=== PATIENT | male | born 1955 | race Asian ===

== ENCOUNTER 2016-03-18 13:52 | Emergency (ER) | payer MEDICARE, OTHER ==
[~2016-03-18] VITALS: Ht 175.3 cm; Wt 79.5 kg
[~2016-03-18 13:52] MED LIST: ADV250 IH; ARIP15TA3 PO; ATOR20TA86 PO; CLOP75 PO; GABA-531 PO; IPRAHFA IH; LEVE500T8 PO; LISI-661 PO; METF500T4 PO; MONT10TA21 PO; PANT40TA25 PO; PHEN200C5 PO; PHENY100 PO; TIOT185 IH
[2016-03-18] MEDS ORDERED: LORazepam 1 MG TABLET PO ONE (14:15)
[2016-03-18 14:44] LABS: BASOPHILS % (AUTO) 0.8 % (0.0-2.0); EOSINOPHILS % (AUTO) 3.5 % (1.0-6.0); HEMATOCRIT 27.6 % (41-53); HEMOGLOBIN 8.7 g/dL (13.5-17.5); LYMPHOCYTES # (AUTO) 1.7 K/uL (1.0-4.8); LYMPHOCYTES % (AUTO) 28.4 % (22.0-44.0); MEAN CORPUSCULAR HEMOGLOBIN 24.7 pg (26.0-34.0); MEAN CORPUSCULAR HGB CONC 31.4 G/dL (31.0-37.0); MEAN CORPUSCULAR VOLUME 79 fL (80-100); MONOCYTES # (AUTO) 0.5 K/uL (0.1-1.0); MONOCYTES % (AUTO) 8.1 % (2.0-9.0); NEUTROPHILS # (AUTO) 3.5 K/uL (1.8-7.7); NEUTROPHILS % (AUTO) 59.2 % (40.0-70.0); PLATELET COUNT (AUTO) 372 K/uL (150-450); RED BLOOD CELL COUNT(AUTO) 3.51 MIL/uL (4.50-5.90); RED CELL DISTRIBUTION WIDTH 18.9 % (11.5-14.5); WHITE BLOOD COUNT (AUTO) 5.9 K/uL (4.5-11.0)
[2016-03-18 14:51] LABS: ANION GAP 6 mmol/L (8-16); CALCIUM, TOTAL 8.3 mg/dL (8.8-10.5); CARBON DIOXIDE 29 mmol/L (22-29); CHLORIDE 102 mmol/L (98-107); CREATININE 0.67 mg/dL (0.60-1.30); GLOMERULAR FILTR. RATE CALC > 60 mL/min (>60); POTASSIUM 4.1 mmol/L (3.5-5.1); SODIUM SERUM 137 mmol/L (136-145); UREA NITROGEN, BLOOD 11 mg/dL (7-18)
[2016-03-18 14:57] LABS: ALANINE AMINOTRANSFERASE 21 U/L (12-78); ASPARTATE AMINOTRANSFERASE 20 U/L (15-37); BILIRUBIN,TOTAL 0.2 mg/dL (0.1-1.0); TOTAL PROTEIN, SERUM 7.7 g/dL (6.4-8.2)
[2016-03-18 15:19] LABS: RBC MORPHOLOGY COMMENT ABNORMAL RBC MORPH
[2016-03-18] MEDS ORDERED: FLUO-191 PO (15:20)
[2016-03-18] MEDS ORDERED: FOSPHENYTOIN SODIUM IV ONE (16:00)
[2016-03-18] MEDS ORDERED: SODIUM CHLORIDE IV ONE (16:00)
[2016-03-18 18:43] VITALS: BP 123/78
== END 2016-03-18 18:51 | disposition home or self-care (01) ==
LOC: EMS 13:56
DX: R56.9 Unspecified convulsions (principal); E11.9 Type 2 diabetes mellitus without complications; I10 Essential (primary) hypertension; J45.909 Unspecified asthma, uncomplicated; Z88.5 Allergy status to narcotic agent; Z88.6 Allergy status to analgesic agent
CPT/HCPCS: 36415; 80053; 80185; 80307; 82948; 82962; 85025; 96365; 99285; G0480; G0482; J7050; Q2009

== ENCOUNTER 2016-03-27 16:12 | Emergency (ER) | payer MEDICARE, OTHER ==
[~2016-03-27] VITALS: Ht 167.6 cm; Wt 84.1 kg
[~2016-03-27 16:12] MED LIST changes: +FLUO-191 PO
[2016-03-27 17:11] LABS: GLUCOSE,POINT OF CARE 158 MG/DL (70-110)
[2016-03-27] MEDS ORDERED: FentaNYL CITRATE-PF 100 MCG/2 ML VIAL IVP ONE (18:15)
[2016-03-27 18:38] LABS: BASOPHILS % (AUTO) 0.7 % (0.0-2.0); EOSINOPHILS % (AUTO) 2.7 % (1.0-6.0); HEMATOCRIT 27.9 % (41-53); HEMOGLOBIN 8.7 g/dL (13.5-17.5); LYMPHOCYTES # (AUTO) 2.1 K/uL (1.0-4.8); LYMPHOCYTES % (AUTO) 29.8 % (22.0-44.0); MEAN CORPUSCULAR HEMOGLOBIN 24.3 pg (26.0-34.0); MEAN CORPUSCULAR HGB CONC 31.1 G/dL (31.0-37.0); MEAN CORPUSCULAR VOLUME 78 fL (80-100); MONOCYTES # (AUTO) 0.7 K/uL (0.1-1.0); MONOCYTES % (AUTO) 9.2 % (2.0-9.0); NEUTROPHILS # (AUTO) 4.1 K/uL (1.8-7.7); NEUTROPHILS % (AUTO) 57.6 % (40.0-70.0); PLATELET COUNT (AUTO) 449 K/uL (150-450); RED BLOOD CELL COUNT(AUTO) 3.57 MIL/uL (4.50-5.90); RED CELL DISTRIBUTION WIDTH 18.8 % (11.5-14.5); WHITE BLOOD COUNT (AUTO) 7.2 K/uL (4.5-11.0)
[2016-03-27 18:42] LABS: ANION GAP 8 mmol/L (8-16); CARBON DIOXIDE 30 mmol/L (22-29); CHLORIDE 101 mmol/L (98-107); CREATININE 0.81 mg/dL (0.60-1.30); GLOMERULAR FILTR. RATE CALC > 60 mL/min (>60); POTASSIUM 4.1 mmol/L (3.5-5.1); SODIUM SERUM 139 mmol/L (136-145); UREA NITROGEN, BLOOD 16 mg/dL (7-18)
[2016-03-27 18:48] LABS: ALANINE AMINOTRANSFERASE 24 U/L (12-78); ASPARTATE AMINOTRANSFERASE 19 U/L (15-37); TOTAL PROTEIN, SERUM 7.7 g/dL (6.4-8.2)
[2016-03-27 19:02] LABS: BILIRUBIN,TOTAL 0.1 mg/dL (0.1-1.0)
[2016-03-27 19:10] LABS: RBC MORPHOLOGY COMMENT ABNORMAL RBC MORPH
[2016-03-27] MEDS ORDERED: LEVE500T53 PO (19:12)
[2016-03-27] MEDS ORDERED: OMEP20 PO (19:12)
[2016-03-27] MEDS ORDERED: INSU100I3 SQ (19:12)
[2016-03-27] MEDS ORDERED: PHENYTOIN SODIUM 200 MG in SODIUM CHLORIDE 0.9% 100 ML IV ONE (19:15)
[2016-03-27 20:41] VITALS: BP 125/71
== END 2016-03-27 20:44 | disposition home or self-care (01) ==
LOC: EMS 16:14
DX: G40.909 Epilepsy, unspecified, not intractable, without status epilepticus (principal); M54.5 Low back pain; I10 Essential (primary) hypertension; F41.9 Anxiety disorder, unspecified; J45.909 Unspecified asthma, uncomplicated; E11.9 Type 2 diabetes mellitus without complications; Z79.4 Long term (current) use of insulin; Z88.6 Allergy status to analgesic agent
CPT/HCPCS: 36415; 80053; 80185; 82962; 85025; 96365; 96375; 99284; J1165; J3010; J7050

== ENCOUNTER 2016-05-16 08:16 | Emergency (ER) | payer MEDICARE, OTHER ==
[~2016-05-16] VITALS: Ht 165.1 cm; Wt 68.2 kg
[~2016-05-16 08:16] MED LIST changes: +INSU100I3 IM; +LEVE500T53 PO; +OMEP20 PO
[2016-05-16 08:27] LABS: GLUCOSE,POINT OF CARE 121 MG/DL (70-110)
[2016-05-16] MEDS ORDERED: PHENYTOIN SODIUM 500 MG in SODIUM CHLORIDE 0.9% 100 ML IV ONE (09:15)
[2016-05-16 13:28] VITALS: BP 134/68
== END 2016-05-16 14:03 | disposition home or self-care (01) ==
LOC: EMS 08:18
DX: G40.909 Epilepsy, unspecified, not intractable, without status epilepticus (principal); R79.0 Abnormal level of blood mineral; G89.29 Other chronic pain; I10 Essential (primary) hypertension; E11.9 Type 2 diabetes mellitus without complications; J45.909 Unspecified asthma, uncomplicated; F41.9 Anxiety disorder, unspecified; Z79.4 Long term (current) use of insulin; Z79.01 Long term (current) use of anticoagulants; Z88.6 Allergy status to analgesic agent
CPT/HCPCS: 36415; 80185; 82962; 96365; 99284; J1165; J7050

== ENCOUNTER 2016-05-31 14:03 | Emergency (ER) | payer MEDICARE, OTHER ==
[~2016-05-31] VITALS: Ht 160 cm; Wt 63.6 kg
[~2016-05-31 14:03] MED LIST changes: -INSU100I3 IM; +INSU100I3 SQ
[2016-05-31] MEDS ORDERED: ALBU4TAB4 PO (14:30)
[2016-05-31] MEDS ORDERED: ATOR20TA86 PO (14:30)
[2016-05-31] MEDS ORDERED: OMEP20 PO (14:30)
[2016-05-31] MEDS ORDERED: QUET25TA PO (14:30)
[2016-05-31 14:41] LABS: GLUCOSE,POINT OF CARE 91 MG/DL (70-110)
[2016-05-31] MEDS ORDERED: PHENY100 PO (16:23)
[2016-05-31] MEDS ORDERED: PHENYTOIN SODIUM 100 MG ER CAPSULE PO ONE (16:30)
[2016-05-31 17:31] VITALS: BP 124/73
== END 2016-05-31 17:35 | disposition home or self-care (01) ==
LOC: EMS 14:04
DX: G40.909 Epilepsy, unspecified, not intractable, without status epilepticus (principal); E11.9 Type 2 diabetes mellitus without complications; I10 Essential (primary) hypertension; R79.89 Other specified abnormal findings of blood chemistry; J45.909 Unspecified asthma, uncomplicated; F20.0 Paranoid schizophrenia; Z86.73 Personal history of transient ischemic attack (TIA), and cerebral infarction without residual deficits; Z88.6 Allergy status to analgesic agent; Z91.018 Allergy to other foods
CPT/HCPCS: 82962; 99285

== ENCOUNTER 2016-06-17 18:30 | Emergency (ER) | payer MEDICARE, OTHER ==
[~2016-06-17] VITALS: Ht 162.6 cm; Wt 64.5 kg
[~2016-06-17 18:30] MED LIST changes: +ALBU4TAB4 PO; -LEVE500T8 PO; -PANT40TA25 PO; -PHEN200C5 PO; +QUET25TA PO
[2016-06-17 19:47] VITALS: BP 145/68
[2016-06-17] MEDS ORDERED: LORazepam 2 MG TABLET PO ONE (20:00)
== END 2016-06-17 21:54 | disposition home or self-care (01) ==
LOC: EMS 18:33
DX: F41.9 Anxiety disorder, unspecified (principal); I69.359 Hemiplegia and hemiparesis following cerebral infarction affecting unspecified side; G40.909 Epilepsy, unspecified, not intractable, without status epilepticus; F20.0 Paranoid schizophrenia; E11.9 Type 2 diabetes mellitus without complications; I10 Essential (primary) hypertension; J45.909 Unspecified asthma, uncomplicated; Z88.6 Allergy status to analgesic agent; Z91.018 Allergy to other foods
CPT/HCPCS: 82962; 99285

== ENCOUNTER 2016-07-12 11:57 | Inpatient (IN) | payer MEDICARE, OTHER ==
[~2016-07-12] VITALS: Ht 160 cm; Wt 66.2 kg
[2016-07-12 12:12] LABS: GLUCOSE,POINT OF CARE 100 MG/DL (70-110)
[2016-07-12] MEDS ORDERED: LORazepam 2 MG/ML VIAL ONE (12:26)
[2016-07-12] MEDS ORDERED: LORazepam 2 MG/ML VIAL IVP ONE (12:30)
[2016-07-12] MEDS ORDERED: LORazepam 2 MG/ML VIAL IM ONE (12:30)
[2016-07-12 12:41] LABS: HEMOGLOBIN 7.8 g/dL (13.5-17.5)
[2016-07-12 12:50] LABS: ANION GAP 7 mmol/L (8-16); CALCIUM, TOTAL 8.2 mg/dL (8.8-10.5); CARBON DIOXIDE 29 mmol/L (22-29); CHLORIDE 101 mmol/L (98-107); CREATININE 0.76 mg/dL (0.60-1.30); GLOMERULAR FILTR. RATE CALC > 60 mL/min (>60); HEMATOCRIT 25.7 % (41-53); MEAN CORPUSCULAR HEMOGLOBIN 22.3 pg (26.0-34.0); MEAN CORPUSCULAR HGB CONC 30.1 G/dL (31.0-37.0); MEAN CORPUSCULAR VOLUME 74 fL (80-100); PLATELET COUNT (AUTO) 435 K/uL (150-450); POTASSIUM 4.3 mmol/L (3.5-5.1); RED BLOOD CELL COUNT(AUTO) 3.48 MIL/uL (4.50-5.90); RED CELL DISTRIBUTION WIDTH 20.3 % (11.5-14.5); SODIUM SERUM 137 mmol/L (136-145); UREA NITROGEN, BLOOD 11 mg/dL (7-18); WHITE BLOOD COUNT (AUTO) 5.9 K/uL (4.5-11.0)
[2016-07-12 12:56] LABS: ALANINE AMINOTRANSFERASE 21 U/L (12-78); ALBUMIN 3.5 g/dL (3.4-5.0); ASPARTATE AMINOTRANSFERASE 17 U/L (15-37); BILIRUBIN,TOTAL 0.2 mg/dL (0.1-1.0); TOTAL PROTEIN, SERUM 8.2 g/dL (6.4-8.2)
[2016-07-12] MEDS ORDERED: PHENYTOIN SODIUM 500 MG in SODIUM CHLORIDE 0.9% 100 ML IV ONE (13:15)
[2016-07-12 13:16] LABS: BAND NEUTROPHILS % (MANUAL) 2 % (1-5); LYMPHOCYTES % (MANUAL) 17 % (22-44); TOTAL CELLS COUNTED 100
[2016-07-12 13:17] LABS: RBC MORPHOLOGY COMMENT ABNORMAL R
[2016-07-12] MEDS ORDERED: ACETAMINOPHEN 325 MG TABLET PO PRN (13:45)
[2016-07-12] MEDS ORDERED: 0.9% SODIUM CHLORIDE 10 ML SYRINGE IVP PRN (13:45)
[2016-07-12] MEDS ORDERED: ONDANSETRON HCL 4 MG/2 ML VIAL IVP PRN (13:45)
[2016-07-12 17:58] VITALS: BP 113/71
[2016-07-12 20:02] VITALS: BP 129/73
[2016-07-12 20:52] LABS: GLUCOSE,POINT OF CARE 156 MG/DL (70-110)
[2016-07-13] VITALS (24 sets, daily range): BP systolic 93–130; BP diastolic 55–76
[2016-07-13] MEDS ORDERED: LORazepam 1 MG TABLET PO PRN (05:15)
[2016-07-13] MEDS ORDERED: SODIUM CHLORIDE 0.9% 250 ML IV ONE (05:39)
[2016-07-13] MEDS ORDERED: DEXTROSE 50%-WATER 25 GM/50 ML SYRINGE IVP PRN (05:45)
[2016-07-13] MEDS ORDERED: IPRATROPIUM BROMIDE HFA 17 MCG/PUFF 12.9 GM INHALER IH PRN ×2 (05:45→12:00)
[2016-07-13] MEDS: MetFORMIN HCL 500 MG TABLET PO SCH (08:24)
[2016-07-13] MEDS: TIOTROPIUM BROMIDE 18 MCG/INH HANDIHALER [5] IH SCH (08:25)
[2016-07-13] MEDS: FLUTICASONE/SALMETEROL 250 MCG-50 MCG/INH DISKUS INHALER [28] IH SCH ×2 (08:25→20:42)
[2016-07-13] MEDS: ALBUTEROL SULFATE 2 MG TABLET PO SCH ×2 (08:25→17:04)
[2016-07-13] MEDS: ARIPiprazole 15 MG TABLET PO SCH (08:26)
[2016-07-13] MEDS: GABAPENTIN 300 MG CAPSULE PO SCH ×3 (08:26→20:42)
[2016-07-13] MEDS: LevETIRAcetam 500 MG TABLET PO SCH ×2 (08:26→20:42)
[2016-07-13] MEDS: ATORVASTATIN CALCIUM 20 MG TABLET PO SCH (08:26)
[2016-07-13] MEDS: FLUoxetine HCL 20 MG CAPSULE PO SCH (08:26)
[2016-07-13] MEDS: LISINOPRIL 10 MG TABLET PO SCH (08:27)
[2016-07-13] MEDS: QUEtiapine FUMARATE 25 MG TABLET PO SCH ×2 (08:27→20:43)
[2016-07-13] MEDS: MONTELUKAST SODIUM 10 MG TABLET PO SCH (08:27)
[2016-07-13] MEDS ORDERED: OMEPRAZOLE 20 MG CAPSULE PO SCH (09:00)
[2016-07-13] MEDS ORDERED: CLOPIDOGREL BISULFATE 75 MG TABLET PO SCH (09:00)
[2016-07-13] MEDS: LORazepam 2 MG/ML VIAL IVP PRN ×2 (10:07→19:16)
[2016-07-13] MEDS ORDERED: PHENYTOIN SODIUM 1,000 MG in SODIUM CHLORIDE 0.9% 150 ML IV ONE (10:30)
[2016-07-13 11:20] LABS: ANION GAP 7 mmol/L (8-16); CALCIUM, TOTAL 8.3 mg/dL (8.8-10.5); CARBON DIOXIDE 30 mmol/L (22-29); CHLORIDE 100 mmol/L (98-107); CREATININE 0.82 mg/dL (0.60-1.30); GLOMERULAR FILTR. RATE CALC > 60 mL/min (>60); POTASSIUM 3.7 mmol/L (3.5-5.1); SODIUM SERUM 137 mmol/L (136-145); UREA NITROGEN, BLOOD 11 mg/dL (7-18)
[2016-07-13 11:26] LABS: ALANINE AMINOTRANSFERASE 20 U/L (12-78); ALBUMIN 3.2 g/dL (3.4-5.0); ASPARTATE AMINOTRANSFERASE 17 U/L (15-37); BILIRUBIN,TOTAL 0.2 mg/dL (0.1-1.0); PHOSPHORUS 2.8 mg/dL (2.5-4.9); TOTAL PROTEIN, SERUM 7.6 g/dL (6.4-8.2)
[2016-07-13] MEDS: INSULIN ASPART 100 UNITS/ML SQ PRN ×3 (12:00→21:26)
[2016-07-13 12:07] LABS: GLUCOSE COMMENT 1 Received Meds; GLUCOSE,POINT OF CARE 104 MG/DL (70-110)
[2016-07-13 12:12] LABS: GLUCOSE,POINT OF CARE 121 MG/DL (70-110)
[2016-07-13] MEDS ORDERED: MAGNESIUM SULFATE 4 GM/WATER 100 ML IV PRN (15:00)
[2016-07-13] MEDS ORDERED: MAGNESIUM SULFATE 2 GM in DEXTROSE 5%-WATER 50 ML IV PRN (15:00)
[2016-07-13] MEDS: MAGNESIUM OXIDE 400 MG TABLET PO PRN ×2 (15:06→17:47)
[2016-07-13 17:17] LABS: GLUCOSE,POINT OF CARE 88 MG/DL (70-110)
[2016-07-13 19:44] LABS: HEMOGLOBIN 10.2 g/dL (13.5-17.5)
[2016-07-13] MEDS: PHENYTOIN SODIUM 100 MG ER CAPSULE PO SCH (20:41)
[2016-07-14] MEDS: ALBUTEROL SULFATE 2 MG TABLET PO SCH ×3 (00:37→15:21)
[2016-07-14] MEDS: MAGNESIUM OXIDE 400 MG TABLET PO PRN ×4 (00:38→20:55)
[2016-07-14 04:23] VITALS: BP 112/74
[2016-07-14 07:26] VITALS: BP 110/74
[2016-07-14] MEDS: FLUTICASONE/SALMETEROL 250 MCG-50 MCG/INH DISKUS INHALER [28] IH SCH ×2 (08:47→20:41)
[2016-07-14] MEDS: TIOTROPIUM BROMIDE 18 MCG/INH HANDIHALER [5] IH SCH (08:47)
[2016-07-14] MEDS: ARIPiprazole 15 MG TABLET PO SCH (08:48)
[2016-07-14] MEDS: PANTOPRAZOLE SODIUM 40 MG DR TABLET PO SCH (08:48)
[2016-07-14] MEDS: LevETIRAcetam 500 MG TABLET PO SCH ×2 (08:48→20:41)
[2016-07-14] MEDS: ATORVASTATIN CALCIUM 20 MG TABLET PO SCH (08:48)
[2016-07-14] MEDS: MONTELUKAST SODIUM 10 MG TABLET PO SCH (08:49)
[2016-07-14] MEDS: LISINOPRIL 10 MG TABLET PO SCH (08:49)
[2016-07-14] MEDS: QUEtiapine FUMARATE 25 MG TABLET PO SCH ×2 (08:49→20:41)
[2016-07-14] MEDS: FLUoxetine HCL 20 MG CAPSULE PO SCH (08:49)
[2016-07-14] MEDS: GABAPENTIN 300 MG CAPSULE PO SCH ×3 (08:52→20:41)
[2016-07-14] MEDS: MetFORMIN HCL 500 MG TABLET PO SCH (08:52)
[2016-07-14] MEDS ORDERED: LevETIRAcetam 1,000 MG in DEXTROSE 5%-WATER 100 ML IV ONE (10:00)
[2016-07-14] MEDS ORDERED: SODIUM CHLORIDE 0.9% 100 ML ONE (10:21)
[2016-07-14 11:34] VITALS: BP 104/64
[2016-07-14] MEDS: LORazepam 2 MG/ML VIAL IVP PRN (15:03)
[2016-07-14 15:33] VITALS: BP 107/66
[2016-07-14 19:19] VITALS: BP 103/61
[2016-07-14 19:42] LABS: GLUCOSE,POINT OF CARE 85 MG/DL (70-110)
[2016-07-14 19:42] LABS: GLUCOSE,POINT OF CARE 86 MG/DL (70-110)
[2016-07-14 19:47] LABS: GLUCOSE,POINT OF CARE 113 MG/DL (70-110)
[2016-07-14 19:47] LABS: GLUCOSE COMMENT 1 Received Meds; GLUCOSE,POINT OF CARE 155 MG/DL (70-110)
[2016-07-14] MEDS: PHENYTOIN SODIUM 100 MG ER CAPSULE PO SCH (20:40)
[2016-07-14 21:16] LABS: GLUCOSE,POINT OF CARE 108 MG/DL (70-110)
[2016-07-14 23:09] VITALS: BP 108/72
[2016-07-15] MEDS: ALBUTEROL SULFATE 2 MG TABLET PO SCH ×2 (00:08→10:32)
[2016-07-15 04:28] VITALS: BP 108/72
[2016-07-15 06:47] LABS: GLUCOSE,POINT OF CARE 102 MG/DL (70-110)
[2016-07-15 07:35] VITALS: BP 106/65
[2016-07-15] MEDS: LORazepam 2 MG/ML VIAL IVP PRN (09:26)
[2016-07-15] MEDS: PANTOPRAZOLE SODIUM 40 MG DR TABLET PO SCH (10:28)
[2016-07-15] MEDS: ATORVASTATIN CALCIUM 20 MG TABLET PO SCH (10:28)
[2016-07-15] MEDS: QUEtiapine FUMARATE 25 MG TABLET PO SCH (10:28)
[2016-07-15] MEDS: MetFORMIN HCL 500 MG TABLET PO SCH (10:28)
[2016-07-15] MEDS: LISINOPRIL 10 MG TABLET PO SCH (10:29)
[2016-07-15] MEDS: LevETIRAcetam 500 MG TABLET PO SCH (10:29)
[2016-07-15] MEDS: GABAPENTIN 300 MG CAPSULE PO SCH (10:29)
[2016-07-15] MEDS: MONTELUKAST SODIUM 10 MG TABLET PO SCH (10:29)
[2016-07-15] MEDS: FLUoxetine HCL 20 MG CAPSULE PO SCH (10:30)
[2016-07-15] MEDS: FLUTICASONE/SALMETEROL 250 MCG-50 MCG/INH DISKUS INHALER [28] IH SCH (10:30)
[2016-07-15] MEDS: TIOTROPIUM BROMIDE 18 MCG/INH HANDIHALER [5] IH SCH (10:31)
[2016-07-15] MEDS: ARIPiprazole 15 MG TABLET PO SCH (10:31)
[2016-07-15] MEDS: MAGNESIUM OXIDE 400 MG TABLET PO PRN (10:42)
[2016-07-15 11:19] VITALS: BP 117/62
== END 2016-07-15 13:30 | disposition home or self-care (01) | DRG 101 ==
LOC: EMS 11:59 → 5N 17:17
PROVIDERS: ADMIT Internal Medicine; ATTEND Internal Medicine
PROC: 30233N1 Transfusion of Nonautologous Red Blood Cells into Peripheral Vein, Percutaneous Approach (ICD-10-PCS; principal; 2016-07-13)
DX: G40.909 Epilepsy, unspecified, not intractable, without status epilepticus (principal); F25.9 Schizoaffective disorder, unspecified; D64.9 Anemia, unspecified; R29.6 Repeated falls; J45.909 Unspecified asthma, uncomplicated; E11.9 Type 2 diabetes mellitus without complications; F41.9 Anxiety disorder, unspecified; G89.29 Other chronic pain; R27.0 Ataxia, unspecified; G47.33 Obstructive sleep apnea (adult) (pediatric); M54.9 Dorsalgia, unspecified; I11.9 Hypertensive heart disease without heart failure; Z96.21 Cochlear implant status; K21.9 Gastro-esophageal reflux disease without esophagitis; R53.1 Weakness; E78.5 Hyperlipidemia, unspecified; Z91.19 Patient's noncompliance with other medical treatment and regimen; Z86.73 Personal history of transient ischemic attack (TIA), and cerebral infarction without residual deficits; Z88.6 Allergy status to analgesic agent; Z91.018 Allergy to other foods; Z79.899 Other long term (current) drug therapy; Z79.4 Long term (current) use of insulin; Z79.02 Long term (current) use of antithrombotics/antiplatelets; Z79.84 Long term (current) use of oral hypoglycemic drugs; Z79.51 Long term (current) use of inhaled steroids; Z83.3 Family history of diabetes mellitus; Z82.49 Family history of ischemic heart disease and other diseases of the circulatory system; Z82.3 Family history of stroke; Z84.1 Family history of disorders of kidney and ureter
CPT/HCPCS: 70450; 82271; 82728; 82962; 83540; 83550; 83735; 84100; 85014; 85018; 86850; 86900; 86901; 86920; 96365; 96375; 99285; J0712; J1165; J2060; J3535; J7050; J7060; P9016

== ENCOUNTER 2016-08-09 19:45 | Inpatient (IN) | payer MEDICARE, OTHER ==
[~2016-08-09] VITALS: Ht 170.2 cm; Wt 62.4 kg
[2016-08-09] MEDS ORDERED: LEVE500T53 PO (20:05)
[2016-08-09] MEDS ORDERED: CALC-1009 PO (20:05)
[2016-08-09] MEDS ORDERED: QUET200T PO (20:05)
[2016-08-09] MEDS ORDERED: ZIPR60CA2 PO (20:05)
[2016-08-09] MEDS ORDERED: VITAD1000 PO (20:05)
[2016-08-09] MEDS ORDERED: LORA2TAB2 PO (20:05)
[2016-08-09] MEDS ORDERED: METF500T7 PO (20:05)
[2016-08-09] MEDS ORDERED: MECL-111 PO (20:05)
[2016-08-09] MEDS ORDERED: MECL-138 PO (20:05)
[2016-08-09] MEDS ORDERED: ONDA4 PO (20:05)
[2016-08-09] MEDS ORDERED: METF500T4 PO (20:09)
[2016-08-09] MEDS ORDERED: SODIUM CHLORIDE 0.9% 500 ML IV ONE (20:15)
[2016-08-09 20:16] LABS: BASOPHILS # (AUTO) 0.03 K/uL (0.00-0.20); BASOPHILS % (AUTO) 0.5 % (0.0-2.0); EOSINOPHILS # (AUTO) 0.14 K/uL (0.00-0.70); EOSINOPHILS % (AUTO) 1.87 % (1.0-6.0); HEMATOCRIT 32.5 % (41-53); HEMOGLOBIN 10.2 g/dL (13.5-17.5); LYMPHOCYTES # (AUTO) 1.6 K/uL (1.0-4.8); LYMPHOCYTES % (AUTO) 21.8 % (22.0-44.0); MEAN CORPUSCULAR HEMOGLOBIN 25.2 pg (26.0-34.0); MEAN CORPUSCULAR HGB CONC 31.3 G/dL (31.0-37.0); MEAN CORPUSCULAR VOLUME 81 fL (80-100); MONOCYTES # (AUTO) 0.7 K/uL (0.1-1.0); MONOCYTES % (AUTO) 9.4 % (2.0-9.0); NEUTROPHILS % (AUTO) 66.5 % (40.0-70.0); PLATELET COUNT (AUTO) 345 K/uL (150-450); RED BLOOD CELL COUNT(AUTO) 4.04 MIL/uL (4.50-5.90); WHITE BLOOD COUNT (AUTO) 7.5 K/uL (4.5-11.0)
[2016-08-09 20:20] LABS: ANION GAP 8 mmol/L (8-16); CALCIUM, TOTAL 8.2 mg/dL (8.8-10.5); CARBON DIOXIDE 27 mmol/L (22-29); CHLORIDE 101 mmol/L (98-107); CREATININE 0.92 mg/dL (0.60-1.30); GLOMERULAR FILTR. RATE CALC > 60 mL/min (>60); RBC MORPHOLOGY COMMENT ABNORMAL RBC MORPH; SODIUM SERUM 136 mmol/L (136-145); UREA NITROGEN, BLOOD 17 mg/dL (7-18)
[2016-08-09 20:25] LABS: ALANINE AMINOTRANSFERASE 23 U/L (12-78); ALBUMIN 3.3 g/dL (3.4-5.0); ASPARTATE AMINOTRANSFERASE 21 U/L (15-37); BILIRUBIN,TOTAL 0.1 mg/dL (0.1-1.0)
[2016-08-09 20:28] LABS: PROTHROMBIN TIME 10.6 SEC (9.4-11.6)
[2016-08-09] MEDS ORDERED: LORazepam 2 MG/ML VIAL IVP ONE (21:00)
[2016-08-09] MEDS ORDERED: LORazepam 2 MG/ML VIAL ONE (21:00)
[2016-08-09] MEDS ORDERED: PHENYTOIN SODIUM 1,000 MG in SODIUM CHLORIDE 0.9% 150 ML IV ONE (21:45)
[2016-08-09] MEDS ORDERED: ONDANSETRON HCL 4 MG/2 ML VIAL IVP PRN (22:45)
[2016-08-09] MEDS ORDERED: ACETAMINOPHEN 325 MG TABLET PO PRN (22:45)
[2016-08-09] MEDS ORDERED: INSULIN ASPART 100 UNITS/ML SQ PRN (22:45)
[2016-08-09] MEDS ORDERED: DEXTROSE 50%-WATER 25 GM/50 ML SYRINGE IVP PRN (22:45)
[2016-08-09] MEDS ORDERED: 0.9% SODIUM CHLORIDE 10 ML SYRINGE IVP PRN (22:45)
[2016-08-09 23:09] VITALS: BP 128/68
[2016-08-10 04:40] VITALS: BP 122/72
[2016-08-10 06:48] LABS: BASOPHILS % (AUTO) 0.5 % (0.0-2.0); EOSINOPHILS % (AUTO) 1.7 % (1.0-6.0); HEMATOCRIT 31.2 % (41-53); HEMOGLOBIN 10.1 g/dL (13.5-17.5); LYMPHOCYTES # (AUTO) 1.3 K/uL (1.0-4.8); LYMPHOCYTES % (AUTO) 20.5 % (22.0-44.0); MEAN CORPUSCULAR HEMOGLOBIN 25.7 pg (26.0-34.0); MEAN CORPUSCULAR HGB CONC 32.4 G/dL (31.0-37.0); MEAN CORPUSCULAR VOLUME 80 fL (80-100); MONOCYTES # (AUTO) 0.7 K/uL (0.1-1.0); MONOCYTES % (AUTO) 10.8 % (2.0-9.0); NEUTROPHILS # (AUTO) 4.2 K/uL (1.8-7.7); NEUTROPHILS % (AUTO) 66.5 % (40.0-70.0); PLATELET COUNT (AUTO) 325 K/uL (150-450); RED BLOOD CELL COUNT(AUTO) 3.92 MIL/uL (4.50-5.90); RED CELL DISTRIBUTION WIDTH 24.2 % (11.5-14.5); WHITE BLOOD COUNT (AUTO) 6.4 K/uL (4.5-11.0)
[2016-08-10 07:08] LABS: ALANINE AMINOTRANSFERASE 21 U/L (12-78); ANION GAP 6 mmol/L (8-16); ASPARTATE AMINOTRANSFERASE 20 U/L (15-37); BILIRUBIN,TOTAL 0.2 mg/dL (0.1-1.0); CALCIUM, TOTAL 7.8 mg/dL (8.8-10.5); CARBON DIOXIDE 28 mmol/L (22-29); CHLORIDE 103 mmol/L (98-107); CREATININE 0.63 mg/dL (0.60-1.30); GLOMERULAR FILTR. RATE CALC > 60 mL/min (>60); POTASSIUM 3.9 mmol/L (3.5-5.1); SODIUM SERUM 137 mmol/L (136-145); TOTAL PROTEIN, SERUM 7.5 g/dL (6.4-8.2); UREA NITROGEN, BLOOD 14 mg/dL (7-18)
[2016-08-10 07:33] VITALS: BP 120/70
[2016-08-10] MEDS ORDERED: 0.9% SODIUM CHLORIDE 10 ML SYRINGE IVP PRN (10:30)
[2016-08-10 11:09] VITALS: BP 123/73
[2016-08-10] MEDS ORDERED: FLUoxetine HCL 10 MG CAPSULE PO SCH (12:00)
[2016-08-10] MEDS: LevETIRAcetam 500 MG in DEXTROSE 5%-WATER 100 ML IV SCH (12:22)
[2016-08-10] MEDS: GABAPENTIN 300 MG CAPSULE PO SCH ×3 (12:36→21:43)
[2016-08-10 15:09] VITALS: BP 118/70
[2016-08-10] MEDS: FLUoxetine HCL 20 MG CAPSULE PO SCH (15:44)
[2016-08-10 19:31] VITALS: BP 130/74
[2016-08-10] MEDS: PHENYTOIN SODIUM 100 MG ER CAPSULE PO SCH (21:42)
[2016-08-10] MEDS: QUEtiapine FUMARATE 200 MG TABLET PO SCH (21:42)
[2016-08-10] MEDS: ZIPRASIDONE HCL 60 MG CAPSULE PO SCH (21:42)
[2016-08-10] MEDS: FLUTICASONE/SALMETEROL 250 MCG-50 MCG/INH DISKUS INHALER [28] IH SCH (21:43)
[2016-08-10 23:58] VITALS: BP 127/71
[2016-08-11] MEDS: LevETIRAcetam 500 MG in DEXTROSE 5%-WATER 100 ML IV SCH ×2 (00:27→12:29)
[2016-08-11 05:22] LABS: GLUCOSE,POINT OF CARE 112 MG/DL (70-110)
[2016-08-11 05:27] LABS: GLUCOSE,POINT OF CARE 116 MG/DL (70-110)
[2016-08-11 05:56] VITALS: BP 128/67
[2016-08-11 08:04] VITALS: BP 119/79
[2016-08-11] MEDS: MECLIZINE HCL 25 MG TABLET PO SCH (09:17)
[2016-08-11] MEDS: CALCIUM CIT/VITAMIN D3 200 MG-250 UNITS TABLET PO SCH (09:17)
[2016-08-11] MEDS: ATORVASTATIN CALCIUM 20 MG TABLET PO SCH (09:17)
[2016-08-11] MEDS: GABAPENTIN 300 MG CAPSULE PO SCH ×4 (09:17→21:02)
[2016-08-11] MEDS: CLOPIDOGREL BISULFATE 75 MG TABLET PO SCH (09:17)
[2016-08-11] MEDS: FLUTICASONE/SALMETEROL 250 MCG-50 MCG/INH DISKUS INHALER [28] IH SCH ×2 (09:18→21:02)
[2016-08-11] MEDS: ARIPiprazole 15 MG TABLET PO SCH (09:18)
[2016-08-11] MEDS: FLUoxetine HCL 20 MG CAPSULE PO SCH (09:19)
[2016-08-11] MEDS: OMEPRAZOLE 20 MG CAPSULE PO SCH (09:19)
[2016-08-11 11:09] LABS: BASOPHILS % (AUTO) 0.3 % (0.0-2.0); EOSINOPHILS % (AUTO) 2.1 % (1.0-6.0); HEMATOCRIT 31.2 % (41-53); HEMOGLOBIN 10.1 g/dL (13.5-17.5); LYMPHOCYTES # (AUTO) 1.4 K/uL (1.0-4.8); LYMPHOCYTES % (AUTO) 27.2 % (22.0-44.0); MEAN CORPUSCULAR HEMOGLOBIN 25.6 pg (26.0-34.0); MEAN CORPUSCULAR HGB CONC 32.5 G/dL (31.0-37.0); MEAN CORPUSCULAR VOLUME 79 fL (80-100); MONOCYTES # (AUTO) 0.6 K/uL (0.1-1.0); MONOCYTES % (AUTO) 10.7 % (2.0-9.0); NEUTROPHILS # (AUTO) 3.1 K/uL (1.8-7.7); NEUTROPHILS % (AUTO) 59.7 % (40.0-70.0); PLATELET COUNT (AUTO) 308 K/uL (150-450); RED BLOOD CELL COUNT(AUTO) 3.95 MIL/uL (4.50-5.90); RED CELL DISTRIBUTION WIDTH 24.5 % (11.5-14.5); WHITE BLOOD COUNT (AUTO) 5.3 K/uL (4.5-11.0)
[2016-08-11 11:30] LABS: ALANINE AMINOTRANSFERASE 20 U/L (12-78); ANION GAP 3 mmol/L (8-16); ASPARTATE AMINOTRANSFERASE 18 U/L (15-37); BILIRUBIN,TOTAL 0.1 mg/dL (0.1-1.0); CALCIUM, TOTAL 7.9 mg/dL (8.8-10.5); CARBON DIOXIDE 32 mmol/L (22-29); CHLORIDE 101 mmol/L (98-107); CREATININE 0.64 mg/dL (0.60-1.30); GLOMERULAR FILTR. RATE CALC > 60 mL/min (>60); POTASSIUM 3.9 mmol/L (3.5-5.1); SODIUM SERUM 136 mmol/L (136-145); TOTAL PROTEIN, SERUM 7.5 g/dL (6.4-8.2); UREA NITROGEN, BLOOD 14 mg/dL (7-18)
[2016-08-11 11:35] VITALS: BP 105/68
[2016-08-11 11:35] LABS: RBC MORPHOLOGY COMMENT ABNORMAL RBC MORPH
[2016-08-11 17:04] VITALS: BP 113/71
[2016-08-11 20:00] VITALS: BP 128/68
[2016-08-11] MEDS: OXYGEN THERAPY IH SCH (21:02)
[2016-08-11] MEDS: QUEtiapine FUMARATE 200 MG TABLET PO SCH (21:02)
[2016-08-11] MEDS: PHENYTOIN SODIUM 100 MG ER CAPSULE PO SCH (21:02)
[2016-08-11] MEDS: ZIPRASIDONE HCL 60 MG CAPSULE PO SCH (21:04)
[2016-08-11 23:33] VITALS: BP 115/70
[2016-08-12] MEDS: LevETIRAcetam 500 MG in DEXTROSE 5%-WATER 100 ML IV SCH ×2 (00:21→12:17)
[2016-08-12 03:49] VITALS: BP 129/78
[2016-08-12 07:39] VITALS: BP 115/70
[2016-08-12] MEDS: OXYGEN THERAPY IH SCH (08:00)
[2016-08-12] MEDS: CALCIUM CIT/VITAMIN D3 200 MG-250 UNITS TABLET PO SCH (08:40)
[2016-08-12] MEDS: ARIPiprazole 15 MG TABLET PO SCH (08:40)
[2016-08-12] MEDS: MECLIZINE HCL 25 MG TABLET PO SCH (08:40)
[2016-08-12] MEDS: FLUTICASONE/SALMETEROL 250 MCG-50 MCG/INH DISKUS INHALER [28] IH SCH (08:40)
[2016-08-12] MEDS: OMEPRAZOLE 20 MG CAPSULE PO SCH (08:41)
[2016-08-12] MEDS: ATORVASTATIN CALCIUM 20 MG TABLET PO SCH (08:41)
[2016-08-12] MEDS: GABAPENTIN 300 MG CAPSULE PO SCH ×2 (08:41→13:35)
[2016-08-12] MEDS: FLUoxetine HCL 20 MG CAPSULE PO SCH (08:41)
[2016-08-12] MEDS: CLOPIDOGREL BISULFATE 75 MG TABLET PO SCH (08:41)
[2016-08-12] MEDS ORDERED: LEVE500T53 PO (10:58)
[2016-08-12 11:08] VITALS: BP 105/70
== END 2016-08-12 14:45 | disposition home or self-care (01) | DRG 101 ==
LOC: EMS 19:47 → 5S 22:17
PROVIDERS: ADMIT Internal Medicine; ATTEND Internal Medicine
DX: G40.909 Epilepsy, unspecified, not intractable, without status epilepticus (principal); F25.9 Schizoaffective disorder, unspecified; I11.9 Hypertensive heart disease without heart failure; D64.9 Anemia, unspecified; F79 Unspecified intellectual disabilities; G47.33 Obstructive sleep apnea (adult) (pediatric); H91.90 Unspecified hearing loss, unspecified ear; K21.9 Gastro-esophageal reflux disease without esophagitis; E11.9 Type 2 diabetes mellitus without complications; E78.5 Hyperlipidemia, unspecified; R26.9 Unspecified abnormalities of gait and mobility; R42 Dizziness and giddiness; J45.909 Unspecified asthma, uncomplicated; Z91.19 Patient's noncompliance with other medical treatment and regimen; Z86.73 Personal history of transient ischemic attack (TIA), and cerebral infarction without residual deficits; Z83.3 Family history of diabetes mellitus; Z82.3 Family history of stroke; Z56.0 Unemployment, unspecified; Z88.8 Allergy status to other drugs, medicaments and biological substances; Z79.899 Other long term (current) drug therapy
CPT/HCPCS: 82962; 87081; 95816; 96361; 96365; 96375; 99291; G0480; G0482; J0712; J1165; J2060; J3535; J7040; J7050; J7060

== ENCOUNTER 2017-01-03 14:22 | Inpatient (IN) | payer MEDICARE, OTHER ==
[~2017-01-03] VITALS: Ht 160 cm; Wt 67.5 kg
[~2017-01-03 14:22] MED LIST changes: -ALBU4TAB4 PO; +ARIP15TA2 PO; -ARIP15TA3 PO; +CALC-1009 PO; -LISI-661 PO; +MECL-111 PO; +ONDA4 PO; +QUET200T PO; -QUET25TA PO; +VITAD1000 PO; +ZIPR60CA2 PO
[2017-01-03] MEDS ORDERED: SODIUM CHLORIDE 0.9% 1,000 ML IV ONE ×2 (15:30→18:00)
[2017-01-03 15:38] LABS: BASOPHILS # (AUTO) 0.03 K/uL (0.00-0.20); BASOPHILS % (AUTO) 0.4 % (0.0-2.0); EOSINOPHILS # (AUTO) 0.15 K/uL (0.00-0.70); EOSINOPHILS % (AUTO) 1.71 % (1.0-6.0); HEMATOCRIT 31.8 % (41-53); HEMOGLOBIN 10.6 g/dL (13.5-17.5); LYMPHOCYTES % (AUTO) 22.8 % (22.0-44.0); MEAN CORPUSCULAR HEMOGLOBIN 31.2 pg (26.0-34.0); MEAN CORPUSCULAR HGB CONC 33.2 G/dL (31.0-37.0); MEAN CORPUSCULAR VOLUME 94 fL (80-100); MONOCYTES # (AUTO) 0.9 K/uL (0.1-1.0); MONOCYTES % (AUTO) 10.7 % (2.0-9.0); NEUTROPHILS # (AUTO) 5.6 K/uL (1.8-7.7); NEUTROPHILS % (AUTO) 64.4 % (40.0-70.0); PLATELET COUNT (AUTO) 340 K/uL (150-450); RED BLOOD CELL COUNT(AUTO) 3.39 MIL/uL (4.50-5.90); WHITE BLOOD COUNT (AUTO) 8.7 K/uL (4.5-11.0)
[2017-01-03 15:49] LABS: ANION GAP 6 mmol/L (8-16); CALCIUM, TOTAL 8.5 mg/dL (8.8-10.5); CARBON DIOXIDE 29 mmol/L (22-29); CHLORIDE 101 mmol/L (98-107); CREATININE 0.89 mg/dL (0.60-1.30); GLOMERULAR FILTR. RATE CALC > 60 mL/min (>60); POTASSIUM 3.9 mmol/L (3.5-5.1); SODIUM SERUM 136 mmol/L (136-145); UREA NITROGEN, BLOOD 12 mg/dL (7-18)
[2017-01-03 15:54] LABS: ALANINE AMINOTRANSFERASE 23 U/L (12-78); ALBUMIN 3.5 g/dL (3.4-5.0); ASPARTATE AMINOTRANSFERASE 17 U/L (15-37); BILIRUBIN,TOTAL 0.3 mg/dL (0.1-1.0); TOTAL PROTEIN, SERUM 7.8 g/dL (6.4-8.2)
[2017-01-03] MEDS ORDERED: PHENYTOIN SODIUM 1,000 MG in SODIUM CHLORIDE 0.9% 150 ML IV ONE (17:15)
[2017-01-03] MEDS ORDERED: ONDANSETRON HCL 4 MG/2 ML VIAL IVP PRN (18:00)
[2017-01-03] MEDS ORDERED: ACETAMINOPHEN 325 MG TABLET PO PRN (18:00)
[2017-01-03] MEDS ORDERED: 0.9% SODIUM CHLORIDE 10 ML SYRINGE IVP PRN (18:00)
[2017-01-03 20:55] VITALS: BP 120/78
[2017-01-03 23:38] VITALS: BP 116/63
[2017-01-04] MEDS ORDERED: IPRATROPIUM BROMIDE HFA 17 MCG/PUFF 12.9 GM INHALER IH PRN (01:00)
[2017-01-04 05:24] VITALS: BP 121/62
[2017-01-04 06:46] LABS: BASOPHILS % (AUTO) 0.5 % (0.0-2.0); HEMATOCRIT 32.7 % (41-53); HEMOGLOBIN 10.9 g/dL (13.5-17.5); LYMPHOCYTES # (AUTO) 1.3 K/uL (1.0-4.8); LYMPHOCYTES % (AUTO) 16.6 % (22.0-44.0); MEAN CORPUSCULAR HEMOGLOBIN 31.6 pg (26.0-34.0); MEAN CORPUSCULAR HGB CONC 33.5 G/dL (31.0-37.0); MEAN CORPUSCULAR VOLUME 94 fL (80-100); MONOCYTES # (AUTO) 0.8 K/uL (0.1-1.0); MONOCYTES % (AUTO) 10.3 % (2.0-9.0); NEUTROPHILS # (AUTO) 5.5 K/uL (1.8-7.7); NEUTROPHILS % (AUTO) 70.6 % (40.0-70.0); PLATELET COUNT (AUTO) 363 K/uL (150-450); RED BLOOD CELL COUNT(AUTO) 3.46 MIL/uL (4.50-5.90); RED CELL DISTRIBUTION WIDTH 17.6 % (11.5-14.5); WHITE BLOOD COUNT (AUTO) 7.8 K/uL (4.5-11.0)
[2017-01-04 07:11] LABS: ALANINE AMINOTRANSFERASE 20 U/L (12-78); ALBUMIN 3.5 g/dL (3.4-5.0); ANION GAP 6 mmol/L (8-16); ASPARTATE AMINOTRANSFERASE 18 U/L (15-37); BILIRUBIN,TOTAL 0.5 mg/dL (0.1-1.0); CALCIUM, TOTAL 8.7 mg/dL (8.8-10.5); CARBON DIOXIDE 28 mmol/L (22-29); CHLORIDE 102 mmol/L (98-107); CHOL/HDL RATIO 2.1 (4.2-7.3); CREATININE 0.77 mg/dL (0.60-1.30); GLOMERULAR FILTR. RATE CALC > 60 mL/min (>60); POTASSIUM 4.2 mmol/L (3.5-5.1); SODIUM SERUM 136 mmol/L (136-145); TOTAL PROTEIN, SERUM 7.9 g/dL (6.4-8.2); UREA NITROGEN, BLOOD 10 mg/dL (7-18)
[2017-01-04 07:17] VITALS: BP 125/68
[2017-01-04 07:17] LABS: IRON, SERUM 109 mcg/dL (50-175); TOTAL IRON BINDING CAPACITY 349 mcg/dL (250-450)
[2017-01-04 07:19] LABS: HEMOGLOBIN A1C 6.5 % (4.5-6.2)
[2017-01-04] MEDS: MetFORMIN HCL 500 MG TABLET PO SCH ×2 (07:55→18:07)
[2017-01-04] MEDS: LevETIRAcetam 500 MG TABLET PO SCH ×2 (07:55→20:15)
[2017-01-04] MEDS: CLOPIDOGREL BISULFATE 75 MG TABLET PO SCH (07:55)
[2017-01-04] MEDS: ATORVASTATIN CALCIUM 20 MG TABLET PO SCH (07:55)
[2017-01-04] MEDS: FLUoxetine HCL 20 MG CAPSULE PO SCH (07:56)
[2017-01-04] MEDS: MONTELUKAST SODIUM 10 MG TABLET PO SCH (07:56)
[2017-01-04] MEDS: GABAPENTIN 300 MG CAPSULE PO SCH ×3 (07:56→20:18)
[2017-01-04] MEDS: ARIPiprazole 15 MG TABLET PO SCH (07:56)
[2017-01-04] MEDS: TIOTROPIUM BROMIDE 18 MCG/INH HANDIHALER [5] IH SCH (07:57)
[2017-01-04] MEDS: FLUTICASONE/VILANTEROL 200-25 MCG/INH INHALER [14] IH SCH (07:57)
[2017-01-04] MEDS: MECLIZINE HCL 25 MG TABLET PO SCH ×2 (09:14→20:15)
[2017-01-04 11:25] VITALS: BP 128/60
[2017-01-04 15:27] VITALS: BP 125/80
[2017-01-04 19:09] VITALS: BP 130/76
[2017-01-04] MEDS: PHENYTOIN SODIUM 100 MG ER CAPSULE PO SCH (20:14)
[2017-01-04] MEDS: QUEtiapine FUMARATE 200 MG TABLET PO SCH (20:15)
[2017-01-04] MEDS: ZIPRASIDONE HCL 60 MG CAPSULE PO SCH (22:19)
[2017-01-05] VITALS (7 sets, daily range): BP systolic 113–147; BP diastolic 69–88
[2017-01-05] MEDS: CLOPIDOGREL BISULFATE 75 MG TABLET PO SCH (07:54)
[2017-01-05] MEDS: LevETIRAcetam 500 MG TABLET PO SCH ×2 (07:54→20:55)
[2017-01-05] MEDS: MetFORMIN HCL 500 MG TABLET PO SCH ×2 (07:54→18:04)
[2017-01-05] MEDS: ATORVASTATIN CALCIUM 20 MG TABLET PO SCH (07:55)
[2017-01-05] MEDS: ARIPiprazole 15 MG TABLET PO SCH (07:55)
[2017-01-05] MEDS: MONTELUKAST SODIUM 10 MG TABLET PO SCH (07:55)
[2017-01-05] MEDS: TIOTROPIUM BROMIDE 18 MCG/INH HANDIHALER [5] IH SCH (07:55)
[2017-01-05] MEDS: FLUoxetine HCL 20 MG CAPSULE PO SCH (07:55)
[2017-01-05] MEDS: FLUTICASONE/VILANTEROL 200-25 MCG/INH INHALER [14] IH SCH (07:55)
[2017-01-05] MEDS: GABAPENTIN 300 MG CAPSULE PO SCH ×3 (07:55→20:55)
[2017-01-05] MEDS ORDERED: NITROGLYCERIN 0.4 MG SUBLINGUAL TABLET #25 SL PRN (19:45)
[2017-01-05] MEDS ORDERED: HYDROCODONE/ACETAMINOPHEN 5-325 MG TABLET PO PRN (19:45)
[2017-01-05 20:34] LABS: CREATINE KINASE, TOTAL 43 U/L (39-308)
[2017-01-05] MEDS: QUEtiapine FUMARATE 200 MG TABLET PO SCH (20:55)
[2017-01-05] MEDS: ZIPRASIDONE HCL 60 MG CAPSULE PO SCH (20:55)
[2017-01-05] MEDS: PHENYTOIN SODIUM 100 MG ER CAPSULE PO SCH (20:55)
[2017-01-05 21:16] LABS: CREATINE KINASE MB 0.6 ng/mL (0-5)
[2017-01-06 04:03] VITALS: BP 135/79
[2017-01-06 07:25] VITALS: BP 127/72
[2017-01-06] MEDS: LevETIRAcetam 500 MG TABLET PO SCH (07:47)
[2017-01-06] MEDS: FLUTICASONE/VILANTEROL 200-25 MCG/INH INHALER [14] IH SCH (07:47)
[2017-01-06] MEDS: ATORVASTATIN CALCIUM 20 MG TABLET PO SCH (07:47)
[2017-01-06] MEDS: MetFORMIN HCL 500 MG TABLET PO SCH (07:47)
[2017-01-06] MEDS: MONTELUKAST SODIUM 10 MG TABLET PO SCH (07:47)
[2017-01-06] MEDS: GABAPENTIN 300 MG CAPSULE PO SCH (07:47)
[2017-01-06] MEDS: CLOPIDOGREL BISULFATE 75 MG TABLET PO SCH (07:47)
[2017-01-06] MEDS: TIOTROPIUM BROMIDE 18 MCG/INH HANDIHALER [5] IH SCH (07:48)
[2017-01-06] MEDS: ARIPiprazole 15 MG TABLET PO SCH (07:49)
[2017-01-06] MEDS: FLUoxetine HCL 20 MG CAPSULE PO SCH (07:50)
[2017-01-06] MEDS: MECLIZINE HCL 25 MG TABLET PO SCH (07:50)
[2017-01-06 11:27] VITALS: BP 145/81
[2017-01-07 18:18] LABS: GLUCOSE COMMENT 1 Received Meds; GLUCOSE,POINT OF CARE 179 MG/DL (70-110)
== END 2017-01-06 15:10 | DRG 101 ==
LOC: EMS 14:25 → 5S 18:10 → 5N 20:45
PROVIDERS: ADMIT Internal Medicine; ATTEND Internal Medicine
DX: G40.909 Epilepsy, unspecified, not intractable, without status epilepticus (principal); F20.0 Paranoid schizophrenia; E11.9 Type 2 diabetes mellitus without complications; D64.9 Anemia, unspecified; F41.9 Anxiety disorder, unspecified; G89.29 Other chronic pain; W19.XXXA Unspecified fall, initial encounter; I10 Essential (primary) hypertension; J45.909 Unspecified asthma, uncomplicated; J44.9 Chronic obstructive pulmonary disease, unspecified; M54.9 Dorsalgia, unspecified; H91.90 Unspecified hearing loss, unspecified ear; S00.83XA Contusion of other part of head, initial encounter; R62.50 Unspecified lack of expected normal physiological development in childhood; Z86.73 Personal history of transient ischemic attack (TIA), and cerebral infarction without residual deficits; Z88.6 Allergy status to analgesic agent; Z91.018 Allergy to other foods; Z79.899 Other long term (current) drug therapy; Z79.84 Long term (current) use of oral hypoglycemic drugs; Z79.02 Long term (current) use of antithrombotics/antiplatelets; Z79.4 Long term (current) use of insulin; Z83.3 Family history of diabetes mellitus; Y93.89 Activity, other specified; Y92.89 Other specified places as the place of occurrence of the external cause; Y99.8 Other external cause status
CPT/HCPCS: 70450; 82962; 83036; 83540; 83550; 83735; 93005; 96361; 96365; 96366; 96368; 97162; 97166; 97530; 99285; G0482; J1165; J7030; J7050

== ENCOUNTER 2017-02-16 12:55 | Emergency (ER) | payer MEDICARE, OTHER ==
[~2017-02-16] VITALS: Ht 172.7 cm; Wt 75.5 kg
[2017-02-16 13:51] LABS: ANION GAP 8 mmol/L (8-16); CALCIUM, TOTAL 8.5 mg/dL (8.8-10.5); CARBON DIOXIDE 31 mmol/L (22-29); CHLORIDE 99 mmol/L (98-107); CREATININE 0.72 mg/dL (0.60-1.30); GLOMERULAR FILTR. RATE CALC > 60 mL/min (>60); GLUCOSE,RANDOM 131 mg/dL (70-110); POTASSIUM 4.1 mmol/L (3.5-5.1); SODIUM SERUM 138 mmol/L (136-145); UREA NITROGEN, BLOOD 12 mg/dL (7-18)
[2017-02-16 14:00] LABS: PHENYTOIN (DILANTIN) 11.2 mcg/mL (10.0-20.0)
[2017-02-16 14:34] VITALS: BP 123/89
== END 2017-02-16 15:57 | disposition home or self-care (01) ==
LOC: EMS 13:00
DX: R56.9 Unspecified convulsions (principal); F20.9 Schizophrenia, unspecified; E11.9 Type 2 diabetes mellitus without complications; I10 Essential (primary) hypertension; F41.9 Anxiety disorder, unspecified; G89.29 Other chronic pain; J45.909 Unspecified asthma, uncomplicated; Z88.6 Allergy status to analgesic agent; Z88.8 Allergy status to other drugs, medicaments and biological substances
CPT/HCPCS: 99285

== ENCOUNTER 2017-02-22 08:22 | Inpatient (IN) | payer MEDICARE, OTHER ==
[~2017-02-22] VITALS: Ht 170.2 cm; Wt 67.6 kg
[~2017-02-22 08:22] MED LIST changes: -ADV250 IH; -ARIP15TA2 PO; -CALC-1009 PO; -INSU100I3 SQ; -IPRAHFA IH; -OMEP20 PO; -QUET200T PO; -TIOT185 IH; -VITAD1000 PO
[2017-02-22] MEDS ORDERED: INSNOV SQ (08:30)
[2017-02-22] MEDS ORDERED: LORazepam 2 MG/ML VIAL IVP ONE (08:30)
[2017-02-22] MEDS ORDERED: LevETIRAcetam 500 MG in DEXTROSE 5%-WATER 100 ML IV ONE (08:30)
[2017-02-22 09:01] LABS: BASOPHILS % (AUTO) 0.2 % (0.0-2.0); EOSINOPHILS % (AUTO) 1.3 % (1.0-6.0); HEMATOCRIT 28.9 % (41-53); HEMOGLOBIN 9.6 g/dL (13.5-17.5); LYMPHOCYTES # (AUTO) 1.4 K/uL (1.0-4.8); LYMPHOCYTES % (AUTO) 20.1 % (22.0-44.0); MEAN CORPUSCULAR HEMOGLOBIN 31.2 pg (26.0-34.0); MEAN CORPUSCULAR HGB CONC 33.2 G/dL (31.0-37.0); MEAN CORPUSCULAR VOLUME 94 fL (80-100); MONOCYTES # (AUTO) 0.7 K/uL (0.1-1.0); MONOCYTES % (AUTO) 9.8 % (2.0-9.0); NEUTROPHILS # (AUTO) 4.6 K/uL (1.8-7.7); NEUTROPHILS % (AUTO) 68.6 % (40.0-70.0); PLATELET COUNT (AUTO) 460 K/uL (150-450); RED BLOOD CELL COUNT(AUTO) 3.08 MIL/uL (4.50-5.90); RED CELL DISTRIBUTION WIDTH 15.3 % (11.5-14.5)
[2017-02-22 09:22] LABS: ALANINE AMINOTRANSFERASE 25 U/L (12-78); ALBUMIN 3.4 g/dL (3.4-5.0); ALKALINE PHOSPHATASE 73 U/L (46-116); ASPARTATE AMINOTRANSFERASE 25 U/L (15-37); BILIRUBIN,TOTAL 0.3 mg/dL (0.1-1.0); CALCIUM, TOTAL 8.5 mg/dL (8.8-10.5); CARBON DIOXIDE 30 mmol/L (22-29); CREATININE 0.77 mg/dL (0.60-1.30); GLOMERULAR FILTR. RATE CALC > 60 mL/min (>60); GLUCOSE,RANDOM 100 mg/dL (70-110); PHENYTOIN (DILANTIN) 12.2 mcg/mL (10.0-20.0); TOTAL PROTEIN, SERUM 8.5 g/dL (6.4-8.2); UREA NITROGEN, BLOOD 12 mg/dL (7-18)
[2017-02-22 09:26] LABS: ANION GAP 8 mmol/L (8-16); CHLORIDE 99 mmol/L (98-107); SODIUM SERUM 137 mmol/L (136-145)
[2017-02-22] MEDS ORDERED: 0.9% SODIUM CHLORIDE 10 ML SYRINGE IVP PRN (11:30)
[2017-02-22] MEDS ORDERED: ACETAMINOPHEN 325 MG TABLET PO PRN (11:30)
[2017-02-22] MEDS ORDERED: INSULIN ASPART 100 UNITS/ML SQ PRN (14:15)
[2017-02-22] MEDS ORDERED: DEXTROSE 50%-WATER 25 GM/50 ML SYRINGE IVP PRN (14:15)
[2017-02-22] MEDS ORDERED: LORazepam 2 MG/ML VIAL IVP PRN (14:30)
[2017-02-22] MEDS: LevETIRAcetam 500 MG TABLET PO SCH ×2 (15:12→21:18)
[2017-02-22] MEDS: MONTELUKAST SODIUM 10 MG TABLET PO SCH (15:12)
[2017-02-22] MEDS: GABAPENTIN 300 MG CAPSULE PO SCH ×2 (16:24→21:17)
[2017-02-22 17:28] LABS: GLUCOSE,POINT OF CARE 97 MG/DL (70-110)
[2017-02-22] MEDS: MetFORMIN HCL 500 MG TABLET PO SCH (20:23)
[2017-02-22 20:28] LABS: GLUCOSE,POINT OF CARE 133 MG/DL (70-110)
[2017-02-22] MEDS ORDERED: ZIPRASIDONE HCL 60 MG CAPSULE PO SCH (21:00)
[2017-02-22] MEDS ORDERED: PHENYTOIN SODIUM 100 MG ER CAPSULE PO SCH (21:00)
[2017-02-22] MEDS: LORazepam 2 MG/ML VIAL IVP PRN (21:24)
[2017-02-22 21:39] VITALS: BP 128/73
[2017-02-22] MEDS ORDERED: PNEUMOCOCCAL VACCINE POLYVALENT 0.5 ML VIAL [PPSV23] IM ONE (23:15)
[2017-02-22] MEDS ORDERED: INFLUENZA VIRUS VACCINE QVS 2017-18 (3YR+)/PF 60 MCG/0.5 ML SYRINGE IM ONE (23:15)
[2017-02-23] VITALS (7 sets, daily range): BP systolic 100–109; BP diastolic 55–70
[2017-02-23] MEDS: MetFORMIN HCL 500 MG TABLET PO SCH ×2 (08:30→17:25)
[2017-02-23] MEDS: MONTELUKAST SODIUM 10 MG TABLET PO SCH (08:33)
[2017-02-23] MEDS: LevETIRAcetam 500 MG TABLET PO SCH ×2 (08:33→20:16)
[2017-02-23] MEDS: FLUoxetine HCL 20 MG CAPSULE PO SCH (08:33)
[2017-02-23] MEDS: GABAPENTIN 300 MG CAPSULE PO SCH ×3 (08:33→20:16)
[2017-02-23] MEDS: CLOPIDOGREL BISULFATE 75 MG TABLET PO SCH (08:34)
[2017-02-23] MEDS: ATORVASTATIN CALCIUM 20 MG TABLET PO SCH (08:34)
[2017-02-23 08:40] LABS: BASOPHILS % (AUTO) 0.3 % (0.0-2.0); EOSINOPHILS % (AUTO) 1.3 % (1.0-6.0); HEMATOCRIT 31.4 % (41-53); HEMOGLOBIN 10.4 g/dL (13.5-17.5); LYMPHOCYTES # (AUTO) 1.1 K/uL (1.0-4.8); LYMPHOCYTES % (AUTO) 9.7 % (22.0-44.0); MEAN CORPUSCULAR HEMOGLOBIN 31.4 pg (26.0-34.0); MEAN CORPUSCULAR HGB CONC 33.2 G/dL (31.0-37.0); MEAN CORPUSCULAR VOLUME 95 fL (80-100); MONOCYTES # (AUTO) 0.9 K/uL (0.1-1.0); MONOCYTES % (AUTO) 8.2 % (2.0-9.0); NEUTROPHILS % (AUTO) 80.5 % (40.0-70.0); PLATELET COUNT (AUTO) 484 K/uL (150-450); RED BLOOD CELL COUNT(AUTO) 3.31 MIL/uL (4.50-5.90); RED CELL DISTRIBUTION WIDTH 15.7 % (11.5-14.5)
[2017-02-23 09:01] LABS: ALANINE AMINOTRANSFERASE 24 U/L (12-78); ALBUMIN 3.3 g/dL (3.4-5.0); ALKALINE PHOSPHATASE 75 U/L (46-116); ANION GAP 8 mmol/L (8-16); ASPARTATE AMINOTRANSFERASE 25 U/L (15-37); BILIRUBIN,TOTAL 0.3 mg/dL (0.1-1.0); CALCIUM, TOTAL 8.5 mg/dL (8.8-10.5); CARBON DIOXIDE 31 mmol/L (22-29); CHLORIDE 99 mmol/L (98-107); CREATININE 0.81 mg/dL (0.60-1.30); GLOMERULAR FILTR. RATE CALC > 60 mL/min (>60); GLUCOSE,RANDOM 107 mg/dL (70-110); POTASSIUM 4.4 mmol/L (3.5-5.1); SODIUM SERUM 138 mmol/L (136-145); TOTAL PROTEIN, SERUM 8.6 g/dL (6.4-8.2); UREA NITROGEN, BLOOD 14 mg/dL (7-18)
[2017-02-23] MEDS: LORazepam 2 MG/ML VIAL IVP PRN (11:13)
[2017-02-23] MEDS: ZIPRASIDONE HCL 60 MG CAPSULE PO SCH (17:25)
[2017-02-23] MEDS: ACETAMINOPHEN 325 MG TABLET PO PRN (17:26)
[2017-02-23] MEDS: PHENYTOIN SODIUM 100 MG ER CAPSULE PO SCH (20:16)
[2017-02-24] MEDS: ACETAMINOPHEN 325 MG TABLET PO PRN ×2 (04:23→20:56)
[2017-02-24 05:00] VITALS: BP 101/54
[2017-02-24 07:12] LABS: GLUCOMETER DEV NAME(LOC) 5S 2N; GLUCOSE,POINT OF CARE 106 MG/DL (70-110)
[2017-02-24 07:13] LABS: GLUCOMETER DEV NAME(LOC) 5S 2N; GLUCOSE,POINT OF CARE 120 MG/DL (70-110)
[2017-02-24 07:13] LABS: GLUCOMETER DEV NAME(LOC) 5S 2N; GLUCOSE,POINT OF CARE 144 MG/DL (70-110)
[2017-02-24 07:13] LABS: GLUCOMETER DEV NAME(LOC) 5S 2N; GLUCOSE,POINT OF CARE 87 MG/DL (70-110)
[2017-02-24 07:26] VITALS: BP 116/66
[2017-02-24 08:06] LABS: EOSINOPHILS # (AUTO) 0.01 K/uL (0.00-0.70); EOSINOPHILS % (AUTO) 0.03 % (1.0-6.0); HEMATOCRIT 29.4 % (41-53); HEMOGLOBIN 9.7 g/dL (13.5-17.5); LYMPHOCYTES # (AUTO) 1.2 K/uL (1.0-4.8); LYMPHOCYTES % (AUTO) 3.9 % (22.0-44.0); MEAN CORPUSCULAR HEMOGLOBIN 31.1 pg (26.0-34.0); MEAN CORPUSCULAR VOLUME 94 fL (80-100); MONOCYTES % (AUTO) 6.7 % (2.0-9.0); NEUTROPHILS # (AUTO) 26.3 K/uL (1.8-7.7); PLATELET COUNT (AUTO) 373 K/uL (150-450); RED BLOOD CELL COUNT(AUTO) 3.11 MIL/uL (4.50-5.90); RED CELL DISTRIBUTION WIDTH 15.4 % (11.5-14.5)
[2017-02-24 08:12] LABS: ANION GAP 9 mmol/L (8-16); CALCIUM, TOTAL 8.1 mg/dL (8.8-10.5); CARBON DIOXIDE 28 mmol/L (22-29); CHLORIDE 97 mmol/L (98-107); CREATININE 0.96 mg/dL (0.60-1.30); GLOMERULAR FILTR. RATE CALC > 60 mL/min (>60); GLUCOSE,RANDOM 121 mg/dL (70-110); POTASSIUM 4.2 mmol/L (3.5-5.1); SODIUM SERUM 134 mmol/L (136-145); UREA NITROGEN, BLOOD 30 mg/dL (7-18)
[2017-02-24] MEDS: CLOPIDOGREL BISULFATE 75 MG TABLET PO SCH (08:18)
[2017-02-24] MEDS: GABAPENTIN 300 MG CAPSULE PO SCH ×3 (08:18→21:05)
[2017-02-24] MEDS: ATORVASTATIN CALCIUM 20 MG TABLET PO SCH (08:18)
[2017-02-24] MEDS: MONTELUKAST SODIUM 10 MG TABLET PO SCH (08:18)
[2017-02-24] MEDS: MetFORMIN HCL 500 MG TABLET PO SCH ×2 (08:18→17:36)
[2017-02-24] MEDS: LevETIRAcetam 500 MG TABLET PO SCH ×2 (08:18→21:05)
[2017-02-24] MEDS: FLUoxetine HCL 20 MG CAPSULE PO SCH (08:19)
[2017-02-24 08:28] LABS: VANCOMYCIN,RANDOM 0.4 mcg/mL (25.0-50.0)
[2017-02-24 08:33] LABS: NEUTROPHILS % (AUTO) 89.4 % (40.0-70.0)
[2017-02-24] MEDS ORDERED: SODIUM CHLORIDE 0.9% 250 ML IV ONE (09:53)
[2017-02-24] MEDS: CefTRIAXone 1 GM/DEXTROSE 50 ML IV SCH (09:55)
[2017-02-24 11:22] VITALS: BP 111/65
[2017-02-24 15:12] VITALS: BP 108/67
[2017-02-24] MEDS: ZIPRASIDONE HCL 60 MG CAPSULE PO SCH (17:37)
[2017-02-24 18:14] LABS: GLUCOMETER DEV NAME(LOC) 5S 1L; GLUCOSE,POINT OF CARE 163 MG/DL (70-110)
[2017-02-24 18:14] LABS: GLUCOMETER DEV NAME(LOC) 5S 1L; GLUCOSE,POINT OF CARE 120 MG/DL (70-110)
[2017-02-24 19:55] VITALS: BP 117/68
[2017-02-24] MEDS: PHENYTOIN SODIUM 100 MG ER CAPSULE PO SCH (21:05)
[2017-02-24 23:29] VITALS: BP 102/58
[2017-02-25 04:06] VITALS: BP 104/59
[2017-02-25 07:42] LABS: HEMATOCRIT 27.8 % (41-53); MEAN CORPUSCULAR HEMOGLOBIN 30.8 pg (26.0-34.0); MEAN CORPUSCULAR HGB CONC 32.2 G/dL (31.0-37.0); MEAN CORPUSCULAR VOLUME 96 fL (80-100); PLATELET COUNT (AUTO) 336 K/uL (150-450); RED BLOOD CELL COUNT(AUTO) 2.91 MIL/uL (4.50-5.90); RED CELL DISTRIBUTION WIDTH 15.7 % (11.5-14.5)
[2017-02-25] MEDS: GABAPENTIN 300 MG CAPSULE PO SCH ×3 (08:03→20:21)
[2017-02-25 08:04] LABS: ANION GAP 9 mmol/L (8-16); CALCIUM, TOTAL 8.3 mg/dL (8.8-10.5); CARBON DIOXIDE 29 mmol/L (22-29); CHLORIDE 100 mmol/L (98-107); GLOMERULAR FILTR. RATE CALC > 60 mL/min (>60); GLUCOSE,RANDOM 118 mg/dL (70-110); POTASSIUM 4.2 mmol/L (3.5-5.1); SODIUM SERUM 138 mmol/L (136-145)
[2017-02-25] MEDS: FLUoxetine HCL 20 MG CAPSULE PO SCH (08:04)
[2017-02-25] MEDS: MONTELUKAST SODIUM 10 MG TABLET PO SCH (08:04)
[2017-02-25] MEDS: LevETIRAcetam 500 MG TABLET PO SCH ×2 (08:04→20:21)
[2017-02-25] MEDS: CLOPIDOGREL BISULFATE 75 MG TABLET PO SCH (08:04)
[2017-02-25] MEDS: ATORVASTATIN CALCIUM 20 MG TABLET PO SCH (08:04)
[2017-02-25] MEDS: MetFORMIN HCL 500 MG TABLET PO SCH ×2 (08:04→16:29)
[2017-02-25 08:15] VITALS: BP 105/55
[2017-02-25 08:17] LABS: UREA NITROGEN, BLOOD 19 mg/dL (7-18)
[2017-02-25] MEDS: CefTRIAXone 1 GM/DEXTROSE 50 ML IV SCH (08:20)
[2017-02-25 12:02] VITALS: BP 115/61
[2017-02-25 12:10] LABS: BAND NEUTROPHILS % (MANUAL) 12 % (1-5); LYMPHOCYTES % (MANUAL) 13 % (22-44); MONOCYTES % (MANUAL) 1 % (2-9); SEGMENTED NEUTROPHILS % 74 % (40-70)
[2017-02-25] MEDS ORDERED: MAGNESIUM OXIDE 400 MG TABLET PO ONE (16:00)
[2017-02-25 16:16] VITALS: BP 115/60
[2017-02-25] MEDS: ZIPRASIDONE HCL 60 MG CAPSULE PO SCH (16:29)
[2017-02-25 19:13] LABS: GLUCOMETER DEV NAME(LOC) 5S 2N; GLUCOSE,POINT OF CARE 124 MG/DL (70-110)
[2017-02-25 19:13] LABS: GLUCOMETER DEV NAME(LOC) 5S 2N; GLUCOSE,POINT OF CARE 123 MG/DL (70-110)
[2017-02-25 19:18] LABS: GLUCOMETER DEV NAME(LOC) 5S 2N; GLUCOSE,POINT OF CARE 134 MG/DL (70-110)
[2017-02-25 19:18] LABS: GLUCOMETER DEV NAME(LOC) 5S 2N; GLUCOSE,POINT OF CARE 151 MG/DL (70-110)
[2017-02-25 19:20] VITALS: BP 100/55
[2017-02-25] MEDS ORDERED: BENZ-17 PO (19:30)
[2017-02-25] MEDS ORDERED: LEVO250T2 PO (19:31)
[2017-02-25] MEDS: PHENYTOIN SODIUM 100 MG ER CAPSULE PO SCH (20:21)
[2017-02-25 23:11] VITALS: BP 104/66
[2017-02-26 04:25] VITALS: BP 104/50
[2017-02-26 07:11] VITALS: BP 113/71
[2017-02-26] MEDS: MetFORMIN HCL 500 MG TABLET PO SCH ×2 (07:54→17:49)
[2017-02-26] MEDS: FLUoxetine HCL 20 MG CAPSULE PO SCH (07:55)
[2017-02-26] MEDS: LevETIRAcetam 500 MG TABLET PO SCH ×2 (07:55→20:02)
[2017-02-26] MEDS: ATORVASTATIN CALCIUM 20 MG TABLET PO SCH (07:55)
[2017-02-26] MEDS: CLOPIDOGREL BISULFATE 75 MG TABLET PO SCH (07:55)
[2017-02-26] MEDS: MONTELUKAST SODIUM 10 MG TABLET PO SCH (07:55)
[2017-02-26] MEDS: GABAPENTIN 300 MG CAPSULE PO SCH ×3 (07:55→20:02)
[2017-02-26 08:21] LABS: GLUCOMETER DEV NAME(LOC) 5N 1M; GLUCOSE,POINT OF CARE 120 MG/DL (70-110)
[2017-02-26 11:08] VITALS: BP 108/60
[2017-02-26] MEDS ORDERED: SODIUM CHLORIDE 0.9% 100 ML ONE (11:19)
[2017-02-26] MEDS: CefTRIAXone 1 GM/DEXTROSE 50 ML IV SCH (11:28)
[2017-02-26 15:02] VITALS: BP 104/66
[2017-02-26] MEDS: ZIPRASIDONE HCL 60 MG CAPSULE PO SCH (17:49)
[2017-02-26 19:24] VITALS: BP 112/65
[2017-02-26] MEDS: PHENYTOIN SODIUM 100 MG ER CAPSULE PO SCH (20:02)
[2017-02-26 21:29] LABS: GLUCOMETER DEV NAME(LOC) 5S 2N; GLUCOSE,POINT OF CARE 116 MG/DL (70-110)
[2017-02-26] MEDS ORDERED: MAGNESIUM SULFATE 2 GM in DEXTROSE 5%-WATER 50 ML IV PRN (21:45)
[2017-02-26] MEDS ORDERED: MAGNESIUM OXIDE 400 MG TABLET PO PRN (21:45)
[2017-02-26] MEDS ORDERED: MAGNESIUM SULFATE 4 GM/WATER 100 ML IV PRN (21:45)
[2017-02-27] VITALS (8 sets, daily range): BP systolic 105–122; BP diastolic 64–73
[2017-02-27 06:28] LABS: GLUCOMETER DEV NAME(LOC) PV 4E; GLUCOSE,POINT OF CARE 103 MG/DL (70-110)
[2017-02-27 06:58] LABS: GLUCOMETER DEV NAME(LOC) 5N 1M; GLUCOSE,POINT OF CARE 120 MG/DL (70-110)
[2017-02-27 06:58] LABS: GLUCOMETER DEV NAME(LOC) 5N 1M; GLUCOSE,POINT OF CARE 115 MG/DL (70-110)
[2017-02-27 06:58] LABS: GLUCOMETER DEV NAME(LOC) 5N 1M; GLUCOSE,POINT OF CARE 87 MG/DL (70-110)
[2017-02-27 07:11] LABS: ALBUMIN 2.8 g/dL (3.4-5.0); ANION GAP 7 mmol/L (8-16); CALCIUM, TOTAL 8.3 mg/dL (8.8-10.5); CARBON DIOXIDE 30 mmol/L (22-29); CHLORIDE 100 mmol/L (98-107); CREATININE 0.71 mg/dL (0.60-1.30); GLOMERULAR FILTR. RATE CALC > 60 mL/min (>60); GLUCOSE,RANDOM 103 mg/dL (70-110); POTASSIUM 4.5 mmol/L (3.5-5.1); SODIUM SERUM 137 mmol/L (136-145); UREA NITROGEN, BLOOD 14 mg/dL (7-18)
[2017-02-27 08:30] LABS: BASOPHILS # (AUTO) 0.01 K/uL (0.00-0.20); BASOPHILS % (AUTO) 0.2 % (0.0-2.0); EOSINOPHILS # (AUTO) 0.25 K/uL (0.00-0.70); EOSINOPHILS % (AUTO) 3.59 % (1.0-6.0); HEMATOCRIT 27.7 % (41-53); HEMOGLOBIN 8.9 g/dL (13.5-17.5); LYMPHOCYTES # (AUTO) 1.1 K/uL (1.0-4.8); MEAN CORPUSCULAR HEMOGLOBIN 31.2 pg (26.0-34.0); MEAN CORPUSCULAR HGB CONC 32.2 G/dL (31.0-37.0); MEAN CORPUSCULAR VOLUME 97 fL (80-100); MONOCYTES # (AUTO) 0.8 K/uL (0.1-1.0); MONOCYTES % (AUTO) 10.9 % (2.0-9.0); NEUTROPHILS # (AUTO) 4.9 K/uL (1.8-7.7); NEUTROPHILS % (AUTO) 69.3 % (40.0-70.0); PLATELET COUNT (AUTO) 316 K/uL (150-450); RED BLOOD CELL COUNT(AUTO) 2.86 MIL/uL (4.50-5.90); RED CELL DISTRIBUTION WIDTH 14.9 % (11.5-14.5)
[2017-02-27] MEDS ORDERED: ONDANSETRON HCL 4 MG TABLET PO PRN (08:45)
[2017-02-27] MEDS ORDERED: ATORVASTATIN CALCIUM 20 MG TABLET PO SCH (09:00)
[2017-02-27] MEDS ORDERED: GABAPENTIN 300 MG CAPSULE PO SCH (09:00)
[2017-02-27] MEDS ORDERED: MONTELUKAST SODIUM 10 MG TABLET PO SCH (09:00)
[2017-02-27] MEDS ORDERED: MECLIZINE HCL 25 MG TABLET PO SCH (09:00)
[2017-02-27] MEDS ORDERED: LevETIRAcetam 500 MG TABLET PO SCH (09:00)
[2017-02-27] MEDS ORDERED: LEVOFLOXACIN 500 MG TABLET PO SCH (09:00)
[2017-02-27] MEDS ORDERED: CLOPIDOGREL BISULFATE 75 MG TABLET PO SCH (09:00)
[2017-02-27] MEDS ORDERED: BENZONATATE 100 MG CAPSULE PO SCH (09:00)
[2017-02-27] MEDS ORDERED: FLUoxetine HCL 20 MG CAPSULE PO SCH (09:00)
[2017-02-27] MEDS: ATORVASTATIN CALCIUM 20 MG TABLET PO SCH (10:19)
[2017-02-27] MEDS: LevETIRAcetam 500 MG TABLET PO SCH ×2 (10:19→21:47)
[2017-02-27] MEDS: MetFORMIN HCL 500 MG TABLET PO SCH ×2 (10:19→21:54)
[2017-02-27] MEDS: GABAPENTIN 300 MG CAPSULE PO SCH ×2 (10:19→21:47)
[2017-02-27] MEDS: CLOPIDOGREL BISULFATE 75 MG TABLET PO SCH (11:24)
[2017-02-27] MEDS: MONTELUKAST SODIUM 10 MG TABLET PO SCH (11:24)
[2017-02-27] MEDS: FLUoxetine HCL 20 MG CAPSULE PO SCH (11:25)
[2017-02-27] MEDS: CefTRIAXone 1 GM/DEXTROSE 50 ML IV SCH (11:26)
[2017-02-27] MEDS ORDERED: INSULIN ASPART 100 UNITS/ML SQ SCH (11:30)
[2017-02-27] MEDS: LORazepam 2 MG/ML VIAL IVP PRN (16:24)
[2017-02-27] MEDS ORDERED: MetFORMIN HCL 500 MG TABLET PO SCH (17:30)
[2017-02-27] MEDS ORDERED: PHENYTOIN SODIUM 100 MG ER CAPSULE PO SCH (21:00)
[2017-02-27] MEDS ORDERED: ZIPRASIDONE HCL 60 MG CAPSULE PO SCH (21:00)
[2017-02-27] MEDS: PHENYTOIN SODIUM 100 MG ER CAPSULE PO SCH (21:48)
[2017-02-27] MEDS: ZIPRASIDONE HCL 60 MG CAPSULE PO SCH (21:49)
[2017-02-27 22:33] LABS: GLUCOMETER DEV NAME(LOC) 5S 1L; GLUCOSE,POINT OF CARE 110 MG/DL (70-110)
[2017-02-27 22:34] LABS: GLUCOMETER DEV NAME(LOC) 5S 1L; GLUCOSE,POINT OF CARE 125 MG/DL (70-110)
[2017-02-27 22:38] LABS: GLUCOMETER DEV NAME(LOC) PV 4E; GLUCOSE,POINT OF CARE 107 MG/DL (70-110)
[2017-02-27 22:38] LABS: GLUCOMETER DEV NAME(LOC) PV 4E; GLUCOSE,POINT OF CARE 136 MG/DL (70-110)
[2017-02-27 22:38] LABS: GLUCOMETER DEV NAME(LOC) PV 4E; GLUCOSE,POINT OF CARE 90 MG/DL (70-110)
[2017-02-28 03:58] VITALS: BP 103/67
[2017-02-28 05:59] LABS: GLUCOMETER DEV NAME(LOC) PV 4E; GLUCOSE,POINT OF CARE 116 MG/DL (70-110)
[2017-02-28 08:00] VITALS: BP 110/68
[2017-02-28] MEDS: MetFORMIN HCL 500 MG TABLET PO SCH ×2 (09:06→17:42)
[2017-02-28] MEDS: CefTRIAXone 1 GM/DEXTROSE 50 ML IV SCH (09:06)
[2017-02-28] MEDS: LevETIRAcetam 500 MG TABLET PO SCH (09:06)
[2017-02-28] MEDS: GABAPENTIN 300 MG CAPSULE PO SCH ×2 (09:06→17:42)
[2017-02-28] MEDS: ATORVASTATIN CALCIUM 20 MG TABLET PO SCH (09:06)
[2017-02-28] MEDS: CLOPIDOGREL BISULFATE 75 MG TABLET PO SCH (09:07)
[2017-02-28] MEDS: FLUoxetine HCL 20 MG CAPSULE PO SCH (09:07)
[2017-02-28] MEDS: MONTELUKAST SODIUM 10 MG TABLET PO SCH (09:07)
[2017-02-28 13:18] VITALS: BP 120/71
[2017-02-28 13:45] VITALS: BP 112/62
[2017-02-28] MEDS: LORazepam 2 MG/ML VIAL IVP PRN (13:49)
[2017-02-28 16:00] VITALS: BP 118/68
[2017-02-28 16:37] LABS: GLUCOMETER DEV NAME(LOC) PV 4E; GLUCOSE,POINT OF CARE 91 MG/DL (70-110)
[2017-02-28] MEDS: ZIPRASIDONE HCL 60 MG CAPSULE PO SCH (17:42)
[2017-03-01 00:08] LABS: GLUCOMETER DEV NAME(LOC) PV 4E; GLUCOSE,POINT OF CARE 94 MG/DL (70-110)
== END 2017-02-28 18:00 | DRG 871 ==
LOC: EMS 08:25 → 5S 20:04 → 4E 02-27 00:45
PROVIDERS: ADMIT Internal Medicine; ATTEND Internal Medicine
DX: A41.9 Sepsis, unspecified organism (principal); J18.9 Pneumonia, unspecified organism; F25.0 Schizoaffective disorder, bipolar type; J44.0 Chronic obstructive pulmonary disease with (acute) lower respiratory infection; E11.9 Type 2 diabetes mellitus without complications; D64.9 Anemia, unspecified; G89.29 Other chronic pain; F41.9 Anxiety disorder, unspecified; M54.9 Dorsalgia, unspecified; G40.901 Epilepsy, unspecified, not intractable, with status epilepticus; Z86.73 Personal history of transient ischemic attack (TIA), and cerebral infarction without residual deficits; I10 Essential (primary) hypertension; J44.9 Chronic obstructive pulmonary disease, unspecified; Z88.6 Allergy status to analgesic agent; Z88.8 Allergy status to other drugs, medicaments and biological substances; Z91.048 Other nonmedicinal substance allergy status; Z83.3 Family history of diabetes mellitus; Z28.21 Immunization not carried out because of patient refusal; Z79.899 Other long term (current) drug therapy; Z91.5 Personal history of self-harm
CPT/HCPCS: 70450; 82962; 83735; 87040; 87086; 90471; 93005; 96374; 96375; 97110; 97163; 97166; 97530; 97535; 99291; G0480; G0482; J0696; J0712; J1815; J2060; J3475; J7050; J7060

== ENCOUNTER 2017-07-19 07:12 | Emergency (ER) | payer MEDICARE, OTHER ==
[~2017-07-19] VITALS: Ht 160 cm; Wt 68.2 kg
[~2017-07-19 07:12] MED LIST changes: +BENZ-17 PO; +INSNOV SQ; +LEVO250T2 PO; -METF500T4 PO; +METF500T6 PO
[2017-07-19 07:38] LABS: GLUCOSE,POINT OF CARE 97 MG/DL (70-110)
[2017-07-19] MEDS ORDERED: TraMADol HCL 50 MG TABLET PO ONE (09:30)
[2017-07-19 10:10] VITALS: BP 148/80
== END 2017-07-19 10:39 | disposition home or self-care (01) ==
LOC: EMS 07:14
DX: G89.29 Other chronic pain (principal); M54.5 Low back pain; E11.9 Type 2 diabetes mellitus without complications; F41.9 Anxiety disorder, unspecified; I10 Essential (primary) hypertension; J45.909 Unspecified asthma, uncomplicated; F20.9 Schizophrenia, unspecified; Z79.4 Long term (current) use of insulin; Z88.8 Allergy status to other drugs, medicaments and biological substances; Z79.899 Other long term (current) drug therapy; Z91.018 Allergy to other foods
CPT/HCPCS: 99283

== ENCOUNTER 2017-08-02 19:46 | Emergency (ER) | payer MEDICARE, OTHER ==
[~2017-08-02] VITALS: Ht 170.2 cm; Wt 75.0 kg
[~2017-08-02 19:46] MED LIST changes: -CLOP75 PO
[2017-08-02 20:18] LABS: GLUCOSE,POINT OF CARE 119 MG/DL (70-110)
[2017-08-02] MEDS ORDERED: FERR325T22 PO (20:32)
[2017-08-02] MEDS ORDERED: OMEP20 PO (20:33)
[2017-08-02] MEDS ORDERED: LISI-661 PO (20:33)
[2017-08-02] MEDS ORDERED: DIVA250T45 PO (20:37)
[2017-08-02] MEDS ORDERED: CHLO50 PO (20:38)
[2017-08-02] MEDS ORDERED: ACETAMINOPHEN/CODEINE 300-30 MG TABLET PO ONE (21:15)
[2017-08-02] MEDS ORDERED: LevETIRAcetam 500 MG TABLET PO ONE (21:15)
[2017-08-02] MEDS ORDERED: PHENYTOIN SODIUM 100 MG ER CAPSULE PO ONE ×2 (21:15→23:00)
[2017-08-02] MEDS ORDERED: DIVALPROEX SODIUM 500 MG ER TABLET PO ONE ×2 (21:15→23:00)
[2017-08-02 21:34] LABS: BASOPHILS % (AUTO) 0.5 % (0.0-2.0); EOSINOPHILS % (AUTO) 3.1 % (1.0-6.0); HEMATOCRIT 27.4 % (41-53); HEMOGLOBIN 8.8 g/dL (13.5-17.5); LYMPHOCYTES # (AUTO) 2.4 K/uL (1.0-4.8); LYMPHOCYTES % (AUTO) 23.1 % (22.0-44.0); MEAN CORPUSCULAR VOLUME 82 fL (80-100); MONOCYTES # (AUTO) 1.3 K/uL (0.1-1.0); MONOCYTES % (AUTO) 12.5 % (2.0-9.0); NEUTROPHILS # (AUTO) 6.3 K/uL (1.8-7.7); NEUTROPHILS % (AUTO) 60.8 % (40.0-70.0); PLATELET COUNT (AUTO) 442 K/uL (150-450); RED BLOOD CELL COUNT(AUTO) 3.36 MIL/uL (4.50-5.90); RED CELL DISTRIBUTION WIDTH 20.5 % (11.5-14.5)
[2017-08-02 22:03] LABS: ANION GAP 10 mmol/L (8-16); CALCIUM, TOTAL 8.4 mg/dL (8.8-10.5); CARBON DIOXIDE 29 mmol/L (22-29); CHLORIDE 100 mmol/L (98-107); CREATININE 0.82 mg/dL (0.60-1.30); GLOMERULAR FILTR. RATE CALC > 60 mL/min (>60); GLUCOSE,RANDOM 111 mg/dL (70-110); POTASSIUM 4.4 mmol/L (3.5-5.1); SODIUM SERUM 139 mmol/L (136-145); UREA NITROGEN, BLOOD 10 mg/dL (7-18)
[2017-08-02 22:17] LABS: ALANINE AMINOTRANSFERASE 25 U/L (12-78); ALBUMIN 2.9 g/dL (3.4-5.0); ALKALINE PHOSPHATASE 57 U/L (46-116); ASPARTATE AMINOTRANSFERASE 17 U/L (15-37); BILIRUBIN,TOTAL 0.2 mg/dL (0.1-1.0); PHENYTOIN (DILANTIN) 4.2 mcg/mL (10.0-20.0); TOTAL PROTEIN, SERUM 8.1 g/dL (6.4-8.2); VALPROIC ACID 36 mcg/mL (50-100)
[2017-08-03 00:33] VITALS: BP 96/71
== END 2017-08-03 00:58 | disposition home or self-care (01) ==
LOC: EMS 19:48
DX: S70.02XA Contusion of left hip, initial encounter (principal); R56.9 Unspecified convulsions; I10 Essential (primary) hypertension; E11.9 Type 2 diabetes mellitus without complications; J45.909 Unspecified asthma, uncomplicated; Z88.5 Allergy status to narcotic agent; Z88.6 Allergy status to analgesic agent; Z91.018 Allergy to other foods; Z88.8 Allergy status to other drugs, medicaments and biological substances; W05.0XXA Fall from non-moving wheelchair, initial encounter; Y93.89 Activity, other specified; Y92.89 Other specified places as the place of occurrence of the external cause; Y99.8 Other external cause status
CPT/HCPCS: 72170; 73503; 99285

== ENCOUNTER 2017-10-06 14:52 | Inpatient (IN) | payer MEDICARE, OTHER ==
[~2017-10-06] VITALS: Ht 162.6 cm; Wt 65.9 kg
[~2017-10-06 14:52] MED LIST changes: +CHLO50 PO; +DIVA250T45 PO; +FERR325T22 PO; +LISI-661 PO; +OMEP20 PO
[2017-10-06] MEDS ORDERED: LORazepam 2 MG/ML VIAL ONE (15:18)
[2017-10-06] MEDS ORDERED: LORazepam 2 MG/ML VIAL IVP ONE (16:00)
[2017-10-06 16:02] LABS: BASOPHILS % (AUTO) 0.5 % (0.0-2.0); EOSINOPHILS % (AUTO) 4.2 % (1.0-6.0); HEMATOCRIT 35.5 % (41-53); HEMOGLOBIN 11.6 g/dL (13.5-17.5); LYMPHOCYTES # (AUTO) 1.8 K/uL (1.0-4.8); LYMPHOCYTES % (AUTO) 25.9 % (22.0-44.0); MEAN CORPUSCULAR HEMOGLOBIN 30.3 pg (26.0-34.0); MEAN CORPUSCULAR HGB CONC 32.7 G/dL (31.0-37.0); MEAN CORPUSCULAR VOLUME 93 fL (80-100); MONOCYTES # (AUTO) 0.8 K/uL (0.1-1.0); MONOCYTES % (AUTO) 11.3 % (2.0-9.0); NEUTROPHILS # (AUTO) 4.1 K/uL (1.8-7.7); NEUTROPHILS % (AUTO) 58.1 % (40.0-70.0); PLATELET COUNT (AUTO) 303 K/uL (150-450); RED BLOOD CELL COUNT(AUTO) 3.83 MIL/uL (4.50-5.90); RED CELL DISTRIBUTION WIDTH 22.2 % (11.5-14.5)
[2017-10-06] MEDS ORDERED: DIVA500T52 PO (16:06)
[2017-10-06 16:12] LABS: ANION GAP 10 mmol/L (8-16); CALCIUM, TOTAL 8.4 mg/dL (8.8-10.5); CARBON DIOXIDE 27 mmol/L (22-29); CHLORIDE 102 mmol/L (98-107); GLOMERULAR FILTR. RATE CALC > 60 mL/min (>60); GLUCOSE,RANDOM 141 mg/dL (70-110); POTASSIUM 4.6 mmol/L (3.5-5.1); SODIUM SERUM 139 mmol/L (136-145); UREA NITROGEN, BLOOD 9 mg/dL (7-18)
[2017-10-06 16:18] LABS: ALANINE AMINOTRANSFERASE 20 U/L (12-78); ALBUMIN 3.4 g/dL (3.4-5.0); ALKALINE PHOSPHATASE 67 U/L (46-116); ASPARTATE AMINOTRANSFERASE 20 U/L (15-37); BILIRUBIN,TOTAL 0.1 mg/dL (0.1-1.0); PHENYTOIN (DILANTIN) 8.3 mcg/mL (10.0-20.0); TOTAL PROTEIN, SERUM 8.3 g/dL (6.4-8.2)
[2017-10-06 17:26] LABS: AMPHET/METH SCREEN,URINE NEGATIVE (NEGATIVE); BARBITURATE SCREEN, URINE NEGATIVE (NEGATIVE); BENZODIAZEPINES SCREEN,URINE NEGATIVE (NEGATIVE); CANNABINOID SCREEN,URINE NEGATIVE (NEGATIVE); COCAINE SCREEN,URINE NEGATIVE (NEGATIVE); METHADONE SCREEN, URINE NEGATIVE (NEGATIVE); OPIATE SCREEN,URINE NEGATIVE (NEGATIVE)
[2017-10-06 17:27] LABS: PHENCYCLIDINE SCREEN,URINE NEGATIVE (NEGATIVE)
[2017-10-06 17:32] LABS: APPEARANCE,URINE CLEAR (CLEAR); BILIRUBIN,URINE NEGATIVE (NEGATIVE); GLUCOSE, URINE (UA) NEGATIVE (NEGATIVE); KETONES,URINE 15 mg/dL (NEGATIVE); LEUKOCYTE ESTERASE ,URINE NEGATIVE (NEGATIVE); NITRATE,URINE NEGATIVE (NEGATIVE); OCCULT BLOOD,URINE NEGATIVE (NEGATIVE); PH,URINE 5.5 (5.0-8.0); PROTEIN,URINE TRACE (NEGATIVE); UROBILINOGEN,URINE 0.2 mg/dL (<=1.0)
[2017-10-06 18:00] LABS: BACTERIA,URINE None Seen /HPF (None Seen); CALCIUM OXALATE CRYSTALS,UR Few /LPF (None Seen); RBC,URINE 0-2 /HPF (0-2); SQUAMOUS EPITHELIAL CELL,UR Few /LPF (None Seen); WBC,URINE 0-2 /HPF (0-5)
[2017-10-06 18:59] VITALS: BP 139/78
[2017-10-06 20:02] VITALS: BP 132/74
[2017-10-07] VITALS (7 sets, daily range): BP systolic 105–128; BP diastolic 61–74
[2017-10-07] MEDS ORDERED: PHENYTOIN SODIUM 750 MG in SODIUM CHLORIDE 0.9% 100 ML IV ONE ×2
[2017-10-07 06:52] LABS: BASOPHILS % (AUTO) 0.5 % (0.0-2.0); EOSINOPHILS % (AUTO) 1.3 % (1.0-6.0); HEMOGLOBIN 11.9 g/dL (13.5-17.5); LYMPHOCYTES # (AUTO) 1.1 K/uL (1.0-4.8); LYMPHOCYTES % (AUTO) 12.9 % (22.0-44.0); MEAN CORPUSCULAR HEMOGLOBIN 30.6 pg (26.0-34.0); MEAN CORPUSCULAR HGB CONC 33.1 G/dL (31.0-37.0); MEAN CORPUSCULAR VOLUME 93 fL (80-100); MONOCYTES # (AUTO) 1.1 K/uL (0.1-1.0); MONOCYTES % (AUTO) 12.2 % (2.0-9.0); NEUTROPHILS # (AUTO) 6.4 K/uL (1.8-7.7); NEUTROPHILS % (AUTO) 73.1 % (40.0-70.0); PLATELET COUNT (AUTO) 309 K/uL (150-450); RED BLOOD CELL COUNT(AUTO) 3.89 MIL/uL (4.50-5.90); RED CELL DISTRIBUTION WIDTH 21.9 % (11.5-14.5)
[2017-10-07 07:19] LABS: ALANINE AMINOTRANSFERASE 19 U/L (12-78); ALBUMIN 3.5 g/dL (3.4-5.0); ALKALINE PHOSPHATASE 64 U/L (46-116); ANION GAP 9 mmol/L (8-16); ASPARTATE AMINOTRANSFERASE 22 U/L (15-37); BILIRUBIN,TOTAL 0.3 mg/dL (0.1-1.0); CALCIUM, TOTAL 8.5 mg/dL (8.8-10.5); CARBON DIOXIDE 30 mmol/L (22-29); CHLORIDE 97 mmol/L (98-107); CREATININE 0.62 mg/dL (0.60-1.30); GLOMERULAR FILTR. RATE CALC > 60 mL/min (>60); GLUCOSE,RANDOM 126 mg/dL (70-110); PHENYTOIN (DILANTIN) 18.1 mcg/mL (10.0-20.0); POTASSIUM 4.4 mmol/L (3.5-5.1); SODIUM SERUM 136 mmol/L (136-145); TOTAL PROTEIN, SERUM 8.3 g/dL (6.4-8.2); UREA NITROGEN, BLOOD 8 mg/dL (7-18)
[2017-10-07] MEDS: LISINOPRIL 10 MG TABLET PO SCH (07:50)
[2017-10-07] MEDS: LevETIRAcetam 500 MG TABLET PO SCH ×2 (07:50→20:30)
[2017-10-07] MEDS: ATORVASTATIN CALCIUM 20 MG TABLET PO SCH (07:50)
[2017-10-07] MEDS: ZIPRASIDONE HCL 80 MG CAPSULE PO SCH ×2 (07:50→18:20)
[2017-10-07] MEDS: DIVALPROEX SODIUM 500 MG ER TABLET PO SCH ×2 (07:50→20:31)
[2017-10-07] MEDS: MetFORMIN HCL 500 MG TABLET PO SCH ×2 (07:50→18:20)
[2017-10-07] MEDS: MONTELUKAST SODIUM 10 MG TABLET PO SCH (07:51)
[2017-10-07] MEDS: FLUoxetine HCL 20 MG CAPSULE PO SCH (07:51)
[2017-10-07] MEDS: OMEPRAZOLE 20 MG CAPSULE PO SCH (07:51)
[2017-10-07] MEDS ORDERED: PHENYTOIN SODIUM 100 MG ER CAPSULE PO SCH (21:00)
[2017-10-07] MEDS ORDERED: ChlorproMAZINE HCL 50 MG TABLET PO SCH (21:00)
[2017-10-08 04:10] VITALS: BP 114/64
[2017-10-08 06:48] LABS: BASOPHILS % (AUTO) 0.3 % (0.0-2.0); EOSINOPHILS % (AUTO) 2.6 % (1.0-6.0); HEMATOCRIT 34.4 % (41-53); HEMOGLOBIN 11.3 g/dL (13.5-17.5); LYMPHOCYTES # (AUTO) 1.7 K/uL (1.0-4.8); LYMPHOCYTES % (AUTO) 18.2 % (22.0-44.0); MEAN CORPUSCULAR HEMOGLOBIN 30.6 pg (26.0-34.0); MEAN CORPUSCULAR HGB CONC 32.8 G/dL (31.0-37.0); MEAN CORPUSCULAR VOLUME 94 fL (80-100); MONOCYTES # (AUTO) 1.6 K/uL (0.1-1.0); MONOCYTES % (AUTO) 17.2 % (2.0-9.0); NEUTROPHILS # (AUTO) 5.9 K/uL (1.8-7.7); NEUTROPHILS % (AUTO) 61.7 % (40.0-70.0); PLATELET COUNT (AUTO) 291 K/uL (150-450); RED BLOOD CELL COUNT(AUTO) 3.69 MIL/uL (4.50-5.90); RED CELL DISTRIBUTION WIDTH 21.9 % (11.5-14.5)
[2017-10-08 07:04] LABS: ALANINE AMINOTRANSFERASE 15 U/L (12-78); ALKALINE PHOSPHATASE 56 U/L (46-116); ANION GAP 12 mmol/L (8-16); ASPARTATE AMINOTRANSFERASE 15 U/L (15-37); BILIRUBIN,TOTAL 0.2 mg/dL (0.1-1.0); CALCIUM, TOTAL 8.3 mg/dL (8.8-10.5); CARBON DIOXIDE 26 mmol/L (22-29); CHLORIDE 100 mmol/L (98-107); CREATININE 0.83 mg/dL (0.60-1.30); GLOMERULAR FILTR. RATE CALC > 60 mL/min (>60); GLUCOSE,RANDOM 93 mg/dL (70-110); POTASSIUM 4.3 mmol/L (3.5-5.1); SODIUM SERUM 138 mmol/L (136-145); TOTAL PROTEIN, SERUM 7.4 g/dL (6.4-8.2); UREA NITROGEN, BLOOD 16 mg/dL (7-18)
[2017-10-08 08:00] VITALS: BP 106/63
[2017-10-08] MEDS: ATORVASTATIN CALCIUM 20 MG TABLET PO SCH (09:20)
[2017-10-08] MEDS: MONTELUKAST SODIUM 10 MG TABLET PO SCH (09:20)
[2017-10-08] MEDS: DIVALPROEX SODIUM 500 MG ER TABLET PO SCH (09:20)
[2017-10-08] MEDS: OMEPRAZOLE 20 MG CAPSULE PO SCH (09:20)
[2017-10-08] MEDS: LevETIRAcetam 500 MG TABLET PO SCH (09:21)
[2017-10-08] MEDS: MetFORMIN HCL 500 MG TABLET PO SCH (09:21)
[2017-10-08] MEDS: ZIPRASIDONE HCL 80 MG CAPSULE PO SCH (09:21)
[2017-10-08] MEDS: FLUoxetine HCL 20 MG CAPSULE PO SCH (09:21)
[2017-10-08] MEDS: LISINOPRIL 10 MG TABLET PO SCH (09:21)
[2017-10-08 09:45] VITALS: BP 125/76
[2017-10-08] MEDS ORDERED: LORazepam 2 MG/ML VIAL IVP ONE (09:45)
[2017-10-08] MEDS ORDERED: LORazepam 2 MG/ML VIAL IVP PRN (11:30)
[2017-10-08 12:16] VITALS: BP 118/71
[2017-10-08 16:00] VITALS: BP 122/68
== END 2017-10-08 17:30 | disposition home or self-care (01) | DRG 101 ==
LOC: EMS 15:04 → 4E 17:26 → 6N 10-07 15:50
PROVIDERS: ADMIT Hospitalist; ATTEND Hospitalist
DX: G40.909 Epilepsy, unspecified, not intractable, without status epilepticus (principal); E11.9 Type 2 diabetes mellitus without complications; F99 Mental disorder, not otherwise specified; E78.5 Hyperlipidemia, unspecified; F20.9 Schizophrenia, unspecified; Z88.6 Allergy status to analgesic agent; Z88.8 Allergy status to other drugs, medicaments and biological substances; J45.909 Unspecified asthma, uncomplicated; I10 Essential (primary) hypertension; F41.9 Anxiety disorder, unspecified; M54.9 Dorsalgia, unspecified; G89.29 Other chronic pain; F32.9 Major depressive disorder, single episode, unspecified; Z82.49 Family history of ischemic heart disease and other diseases of the circulatory system; Z83.3 Family history of diabetes mellitus
CPT/HCPCS: 70450; 93005; 93041; 95816; 99291; J1165; J2060; J7050

== ENCOUNTER 2017-11-06 07:38 | Emergency (ER) | payer MEDICARE, OTHER ==
[~2017-11-06] VITALS: Ht 162.6 cm; Wt 65.9 kg
[~2017-11-06 07:38] MED LIST changes: -DIVA250T45 PO; +DIVA500T52 PO; -LEVO250T2 PO; +METF-960 PO; -METF500T6 PO; -ONDA4 PO
[2017-11-06] MEDS ORDERED: SODIUM CHLORIDE 0.9% 1,000 ML IV ONE (08:00)
[2017-11-06 08:09] LABS: BASOPHILS % (AUTO) 0.4 % (0.0-2.0); EOSINOPHILS % (AUTO) 4.7 % (1.0-6.0); HEMATOCRIT 33.9 % (41-53); HEMOGLOBIN 11.3 g/dL (13.5-17.5); LYMPHOCYTES # (AUTO) 1.6 K/uL (1.0-4.8); LYMPHOCYTES % (AUTO) 19.4 % (22.0-44.0); MEAN CORPUSCULAR HEMOGLOBIN 32.2 pg (26.0-34.0); MEAN CORPUSCULAR HGB CONC 33.2 G/dL (31.0-37.0); MEAN CORPUSCULAR VOLUME 97 fL (80-100); MONOCYTES # (AUTO) 1.3 K/uL (0.1-1.0); MONOCYTES % (AUTO) 16.4 % (2.0-9.0); NEUTROPHILS # (AUTO) 4.8 K/uL (1.8-7.7); NEUTROPHILS % (AUTO) 59.1 % (40.0-70.0); PLATELET COUNT (AUTO) 259 K/uL (150-450); RED CELL DISTRIBUTION WIDTH 18.6 % (11.5-14.5)
[2017-11-06 08:09] LABS: GLUCOSE,POINT OF CARE 100 MG/DL (70-110)
[2017-11-06 08:23] LABS: ANION GAP 9 mmol/L (8-16); CARBON DIOXIDE 28 mmol/L (22-29); CHLORIDE 101 mmol/L (98-107); CREATININE 0.85 mg/dL (0.60-1.30); GLOMERULAR FILTR. RATE CALC > 60 mL/min (>60); GLUCOSE,RANDOM 103 mg/dL (70-110); POTASSIUM 4.3 mmol/L (3.5-5.1); SODIUM SERUM 138 mmol/L (136-145); UREA NITROGEN, BLOOD 15 mg/dL (7-18)
[2017-11-06 08:38] LABS: ALANINE AMINOTRANSFERASE 26 U/L (12-78); ALBUMIN 3.1 g/dL (3.4-5.0); ALKALINE PHOSPHATASE 64 U/L (46-116); ASPARTATE AMINOTRANSFERASE 20 U/L (15-37); BILIRUBIN,TOTAL 0.3 mg/dL (0.1-1.0)
[2017-11-06 08:49] LABS: VALPROIC ACID 73 mcg/mL (50-100)
[2017-11-06 09:02] LABS: APPEARANCE,URINE CLEAR (CLEAR); BILIRUBIN,URINE NEGATIVE (NEGATIVE); GLUCOSE, URINE (UA) NEGATIVE (NEGATIVE); KETONES,URINE NEGATIVE (NEGATIVE); LEUKOCYTE ESTERASE ,URINE NEGATIVE (NEGATIVE); NITRATE,URINE NEGATIVE (NEGATIVE); OCCULT BLOOD,URINE NEGATIVE (NEGATIVE); PROTEIN,URINE NEGATIVE (NEGATIVE); UROBILINOGEN,URINE 0.2 mg/dL (<=1.0)
[2017-11-06 09:07] LABS: AMPHET/METH SCREEN,URINE NEGATIVE (NEGATIVE); BARBITURATE SCREEN, URINE NEGATIVE (NEGATIVE); BENZODIAZEPINES SCREEN,URINE NEGATIVE (NEGATIVE); CANNABINOID SCREEN,URINE NEGATIVE (NEGATIVE); COCAINE SCREEN,URINE NEGATIVE (NEGATIVE); METHADONE SCREEN, URINE NEGATIVE (NEGATIVE); OPIATE SCREEN,URINE NEGATIVE (NEGATIVE); PHENCYCLIDINE SCREEN,URINE NEGATIVE (NEGATIVE)
[2017-11-06 09:49] LABS: BACTERIA,URINE None Seen /HPF (None Seen); RBC,URINE None Seen /HPF (0-2); WBC,URINE None Seen /HPF (0-5)
[2017-11-06 10:28] VITALS: BP 141/84
== END 2017-11-06 11:50 | disposition home or self-care (01) ==
LOC: EMS 07:41
DX: G40.909 Epilepsy, unspecified, not intractable, without status epilepticus (principal); R41.82 Altered mental status, unspecified; R47.81 Slurred speech; J45.909 Unspecified asthma, uncomplicated; E11.9 Type 2 diabetes mellitus without complications; I10 Essential (primary) hypertension; F41.9 Anxiety disorder, unspecified; F20.9 Schizophrenia, unspecified; G89.29 Other chronic pain; Z98.890 Other specified postprocedural states; Z88.6 Allergy status to analgesic agent; Z88.8 Allergy status to other drugs, medicaments and biological substances; Z88.5 Allergy status to narcotic agent; Z91.010 Allergy to peanuts; Z79.899 Other long term (current) drug therapy; Z79.84 Long term (current) use of oral hypoglycemic drugs; Z79.4 Long term (current) use of insulin
CPT/HCPCS: 36415; 80053; 80164; 80185; 80307; 81001; 82962; 85025; 93005; 96360; 99285; G0480

== ENCOUNTER → 2017-11-14 | Outpatient (CLI) | payer MEDICARE, OTHER ==
[~2017-11-14] VITALS: Ht 160 cm; Wt 65.5 kg
[2017-11-14 10:15] VITALS: BP 115/68
== END | disposition home or self-care (01) ==
LOC: SRCNTR 09:55
PROVIDERS: ATTEND Internal Medicine
DX: J45.909 Unspecified asthma, uncomplicated (principal); R56.9 Unspecified convulsions; E11.9 Type 2 diabetes mellitus without complications; F32.9 Major depressive disorder, single episode, unspecified; I10 Essential (primary) hypertension; Q04.9 Congenital malformation of brain, unspecified
CPT/HCPCS: G0463

== ENCOUNTER 2017-12-21 13:41 | Emergency (ER) | payer MEDICARE, OTHER ==
[~2017-12-21] VITALS: Ht 157.5 cm; Wt 63.6 kg
[2017-12-21 14:14] LABS: GLUCOSE,POINT OF CARE 151 MG/DL (70-110)
[2017-12-21 15:04] LABS: BASOPHILS % (AUTO) 0.6 % (0.0-2.0); HEMATOCRIT 29.9 % (41-53); HEMOGLOBIN 10.1 g/dL (13.5-17.5); LYMPHOCYTES # (AUTO) 1.8 K/uL (1.0-4.8); LYMPHOCYTES % (AUTO) 19.2 % (22.0-44.0); MEAN CORPUSCULAR HEMOGLOBIN 33.7 pg (26.0-34.0); MEAN CORPUSCULAR HGB CONC 33.7 G/dL (31.0-37.0); MEAN CORPUSCULAR VOLUME 100 fL (80-100); MONOCYTES # (AUTO) 1.1 K/uL (0.1-1.0); MONOCYTES % (AUTO) 11.9 % (2.0-9.0); NEUTROPHILS # (AUTO) 5.9 K/uL (1.8-7.7); NEUTROPHILS % (AUTO) 63.3 % (40.0-70.0); PLATELET COUNT (AUTO) 301 K/uL (150-450); RED BLOOD CELL COUNT(AUTO) 2.99 MIL/uL (4.50-5.90)
[2017-12-21 15:14] LABS: ANION GAP 6 mmol/L (8-16); CALCIUM, TOTAL 8.4 mg/dL (8.8-10.5); CARBON DIOXIDE 28 mmol/L (22-29); CHLORIDE 102 mmol/L (98-107); CREATININE 0.91 mg/dL (0.60-1.30); GLOMERULAR FILTR. RATE CALC > 60 mL/min (>60); GLUCOSE,RANDOM 130 mg/dL (70-110); POTASSIUM 3.8 mmol/L (3.5-5.1); SODIUM SERUM 136 mmol/L (136-145); UREA NITROGEN, BLOOD 21 mg/dL (7-18)
[2017-12-21 15:20] LABS: ALANINE AMINOTRANSFERASE 27 U/L (12-78); ALBUMIN 3.1 g/dL (3.4-5.0); ALKALINE PHOSPHATASE 66 U/L (46-116); ASPARTATE AMINOTRANSFERASE 21 U/L (15-37); BILIRUBIN,TOTAL 0.1 mg/dL (0.1-1.0); PHENYTOIN (DILANTIN) < 0.5 mcg/mL (10.0-20.0); TOTAL PROTEIN, SERUM 7.6 g/dL (6.4-8.2); VALPROIC ACID < 3 mcg/mL (50-100)
[2017-12-21 15:24] LABS: LACTIC ACID 2.5 mmol/L (0.4-2.0)
[2017-12-21] MEDS ORDERED: LORazepam 2 MG/ML VIAL IVP ONE ×3 (16:45→19:30)
[2017-12-21] MEDS ORDERED: DIVALPROEX SODIUM 500 MG ER TABLET PO ONE (16:45)
[2017-12-21] MEDS ORDERED: LevETIRAcetam 500 MG TABLET PO ONE (16:45)
[2017-12-21 21:07] VITALS: BP 132/65
== END 2017-12-21 21:30 | disposition home or self-care (01) ==
LOC: EMS 13:42
DX: R56.9 Unspecified convulsions (principal); F41.9 Anxiety disorder, unspecified; J45.909 Unspecified asthma, uncomplicated; E11.9 Type 2 diabetes mellitus without complications; I10 Essential (primary) hypertension; F20.9 Schizophrenia, unspecified; Z88.6 Allergy status to analgesic agent; Z91.018 Allergy to other foods; Z88.8 Allergy status to other drugs, medicaments and biological substances; Z79.84 Long term (current) use of oral hypoglycemic drugs; Z79.4 Long term (current) use of insulin; Z79.899 Other long term (current) drug therapy
CPT/HCPCS: 36415; 80053; 80164; 80185; 82962; 83605; 85025; 93005; 96374; 96376; 99291; J2060

== ENCOUNTER 2018-04-03 15:52 | Emergency (ER) | payer MEDICARE, OTHER ==
[~2018-04-03] VITALS: Ht 160 cm; Wt 63.6 kg
[2018-04-03 16:38] LABS: GLUCOSE,POINT OF CARE 162 MG/DL (70-110)
[2018-04-03] MEDS ORDERED: LORazepam 2 MG/ML VIAL IM ONE (17:00)
[2018-04-03] MEDS ORDERED: ZIPR80CA2 PO (17:08)
[2018-04-03 17:57] LABS: BASOPHILS % (AUTO) 1.3 % (0.0-2.0); EOSINOPHILS % (AUTO) 1.3 % (1.0-6.0); HEMATOCRIT 33.2 % (41-53); HEMOGLOBIN 10.7 g/dL (13.5-17.5); LYMPHOCYTES % (AUTO) 12.1 % (22.0-44.0); MEAN CORPUSCULAR HEMOGLOBIN 31.3 pg (26.0-34.0); MEAN CORPUSCULAR HGB CONC 32.4 G/dL (31.0-37.0); MEAN CORPUSCULAR VOLUME 97 fL (80-100); MONOCYTES # (AUTO) 2.1 K/uL (0.1-1.0); MONOCYTES % (AUTO) 12.6 % (2.0-9.0); NEUTROPHILS # (AUTO) 11.8 K/uL (1.8-7.7); NEUTROPHILS % (AUTO) 72.7 % (40.0-70.0); PLATELET COUNT (AUTO) 354 K/uL (150-450); RED BLOOD CELL COUNT(AUTO) 3.43 MIL/uL (4.50-5.90); RED CELL DISTRIBUTION WIDTH 17.7 % (11.5-14.5)
[2018-04-03 18:12] LABS: ANION GAP 9 mmol/L (8-16); CARBON DIOXIDE 28 mmol/L (22-29); CHLORIDE 100 mmol/L (98-107); CREATININE 1.04 mg/dL (0.60-1.30); GLOMERULAR FILTR. RATE CALC > 60 mL/min (>60); GLUCOSE,RANDOM 146 mg/dL (70-110); POTASSIUM 4.8 mmol/L (3.5-5.1); SODIUM SERUM 137 mmol/L (136-145); UREA NITROGEN, BLOOD 19 mg/dL (7-18)
[2018-04-03] MEDS ORDERED: LORazepam 2 MG/ML VIAL IVP ONE (18:15)
[2018-04-03 18:20] LABS: ALANINE AMINOTRANSFERASE 23 U/L (12-78); ALBUMIN 3.5 g/dL (3.4-5.0); ALKALINE PHOSPHATASE 64 U/L (46-116); ASPARTATE AMINOTRANSFERASE 32 U/L (15-37); BILIRUBIN,TOTAL 0.2 mg/dL (0.1-1.0); PHENYTOIN (DILANTIN) 0.8 mcg/mL (10.0-20.0); TOTAL PROTEIN, SERUM 8.4 g/dL (6.4-8.2)
[2018-04-03] MEDS ORDERED: CefTRIAXone 1 GM/DEXTROSE 50 ML IV ONE (19:30)
[2018-04-03 20:20] VITALS: BP 131/83
== END 2018-04-03 21:51 | disposition home or self-care (01) ==
LOC: EMS 15:54
DX: J40 Bronchitis, not specified as acute or chronic (principal); R07.89 Other chest pain; R56.9 Unspecified convulsions; M54.9 Dorsalgia, unspecified; F41.9 Anxiety disorder, unspecified; J45.909 Unspecified asthma, uncomplicated; E11.9 Type 2 diabetes mellitus without complications; I10 Essential (primary) hypertension; F20.9 Schizophrenia, unspecified; G89.29 Other chronic pain; Z79.899 Other long term (current) drug therapy; Z79.84 Long term (current) use of oral hypoglycemic drugs; Z79.4 Long term (current) use of insulin; Z88.6 Allergy status to analgesic agent; Z88.5 Allergy status to narcotic agent; Z91.018 Allergy to other foods; Z88.8 Allergy status to other drugs, medicaments and biological substances
CPT/HCPCS: 36415; 71045; 80053; 80185; 82962; 84484; 85025; 93005; 96365; 96375; 99291; G0480; J0696; J2060

== ENCOUNTER 2018-04-28 17:15 | Inpatient (IN) | payer MEDICARE, MEDICAID ==
[~2018-04-28] VITALS: Ht 160 cm; Wt 70.1 kg
[~2018-04-28 17:15] MED LIST changes: -ZIPR60CA2 PO; +ZIPR80CA2 PO
[2018-04-28 19:55] LABS: BASOPHILS % (AUTO) 0.4 % (0.0-2.0); EOSINOPHILS % (AUTO) 2.9 % (1.0-6.0); HEMATOCRIT 30.3 % (41-53); HEMOGLOBIN 9.9 g/dL (13.5-17.5); LYMPHOCYTES # (AUTO) 1.5 K/uL (1.0-4.8); LYMPHOCYTES % (AUTO) 15.9 % (22.0-44.0); MEAN CORPUSCULAR HGB CONC 32.5 G/dL (31.0-37.0); MEAN CORPUSCULAR VOLUME 98 fL (80-100); MONOCYTES # (AUTO) 1.5 K/uL (0.1-1.0); MONOCYTES % (AUTO) 15.6 % (2.0-9.0); NEUTROPHILS # (AUTO) 6.2 K/uL (1.8-7.7); NEUTROPHILS % (AUTO) 65.2 % (40.0-70.0); PLATELET COUNT (AUTO) 277 K/uL (150-450); RED BLOOD CELL COUNT(AUTO) 3.08 MIL/uL (4.50-5.90); RED CELL DISTRIBUTION WIDTH 18.7 % (11.5-14.5)
[2018-04-28 20:18] LABS: ANION GAP 10 mmol/L (8-16); CALCIUM, TOTAL 8.6 mg/dL (8.8-10.5); CARBON DIOXIDE 28 mmol/L (22-29); CHLORIDE 102 mmol/L (98-107); GLOMERULAR FILTR. RATE CALC > 60 mL/min (>60); GLUCOSE,RANDOM 144 mg/dL (70-110); POTASSIUM 4.1 mmol/L (3.5-5.1); SODIUM SERUM 140 mmol/L (136-145); UREA NITROGEN, BLOOD 16 mg/dL (7-18)
[2018-04-28 20:24] LABS: ALANINE AMINOTRANSFERASE 22 U/L (12-78); ALBUMIN 3.1 g/dL (3.4-5.0); ALKALINE PHOSPHATASE 54 U/L (46-116); ASPARTATE AMINOTRANSFERASE 21 U/L (15-37); BILIRUBIN,TOTAL 0.2 mg/dL (0.1-1.0); TOTAL PROTEIN, SERUM 7.6 g/dL (6.4-8.2)
[2018-04-28] MEDS ORDERED: ZOLPIDEM TARTRATE 10 MG TABLET PO PRN (21:00)
[2018-04-28 22:14] LABS: GLUCOMETER DEV NAME(LOC) 3EX.; GLUCOSE,POINT OF CARE 108 MG/DL (70-110)
[2018-04-28] MEDS ORDERED: GLUCAGON,HUMAN RECOMBINANT 1 MG VIAL IM PRN (23:00)
[2018-04-28] MEDS ORDERED: INSULIN LISPRO 100 UNITS/ML SQ PRN (23:00)
[2018-04-28] MEDS ORDERED: ALBUTEROL SULFATE HFA 90 MCG/PUFF 8 GM INHALER IH PRN (23:00)
[2018-04-28] MEDS ORDERED: MECLIZINE HCL 25 MG TABLET PO PRN (23:00)
[2018-04-28 23:14] LABS: APPEARANCE,URINE CLEAR (CLEAR); BILIRUBIN,URINE NEGATIVE (NEGATIVE); GLUCOSE, URINE (UA) NEGATIVE (NEGATIVE); KETONES,URINE NEGATIVE (NEGATIVE); LEUKOCYTE ESTERASE ,URINE NEGATIVE (NEGATIVE); NITRATE,URINE NEGATIVE (NEGATIVE); OCCULT BLOOD,URINE NEGATIVE (NEGATIVE); PH,URINE 5.5 (5.0-8.0); PROTEIN,URINE POS 1+ (NEGATIVE)
[2018-04-28] MEDS ORDERED: DEXTROSE 50%-WATER 25 GM/50 ML SYG IVP PRN (23:15)
[2018-04-28] MEDS ORDERED: BACITRACIN 28.4 GM OINTMENT TP PRN (23:15)
[2018-04-28 23:17] VITALS: BP 160/92
[2018-04-28 23:18] LABS: AMPHET/METH SCREEN,URINE NEGATIVE (NEGATIVE); BARBITURATE SCREEN, URINE NEGATIVE (NEGATIVE); BENZODIAZEPINES SCREEN,URINE NEGATIVE (NEGATIVE); CANNABINOID SCREEN,URINE NEGATIVE (NEGATIVE); COCAINE SCREEN,URINE NEGATIVE (NEGATIVE); METHADONE SCREEN, URINE NEGATIVE (NEGATIVE); OPIATE SCREEN,URINE NEGATIVE (NEGATIVE); PHENCYCLIDINE SCREEN,URINE NEGATIVE (NEGATIVE)
[2018-04-29 00:28] VITALS: BP 164/92
[2018-04-29 00:35] VITALS: BP 150/81
[2018-04-29 00:40] VITALS: BP 140/75
[2018-04-29] MEDS ORDERED: LORazepam 2 MG/ML VIAL ONE (00:44)
[2018-04-29] MEDS: LORazepam 2 MG TABLET PO PRN (00:44)
[2018-04-29] MEDS ORDERED: LORazepam 2 MG/ML VIAL IM ONE (00:45)
[2018-04-29 01:48] LABS: GLUCOMETER DEV NAME(LOC) 3EX.; GLUCOSE,POINT OF CARE 120 MG/DL (70-110)
[2018-04-29 05:39] LABS: GLUCOMETER DEV NAME(LOC) 3E.I; GLUCOSE,POINT OF CARE 135 MG/DL (70-110)
[2018-04-29 06:45] LABS: CHOLESTEROL 145 mg/dL (131-200); HDL CHOLESTEROL 72 mg/dL (40-60); LDL CHOL (CALC.) 62 mg/dL (0-130); TRIGLYCERIDES 56 mg/dL (15-150)
[2018-04-29] MEDS: MetFORMIN HCL 500 MG TABLET PO SCH ×2 (06:49→17:45)
[2018-04-29 07:02] LABS: PHENYTOIN (DILANTIN) < 0.5 mcg/mL (10.0-20.0)
[2018-04-29] MEDS: BENZONATATE 100 MG CAPSULE PO SCH ×3 (08:44→17:44)
[2018-04-29] MEDS: LevETIRAcetam 500 MG TABLET PO SCH ×2 (08:44→17:44)
[2018-04-29] MEDS: LISINOPRIL 10 MG TABLET PO SCH (08:44)
[2018-04-29] MEDS: MONTELUKAST SODIUM 10 MG TABLET PO SCH (08:44)
[2018-04-29] MEDS: ATORVASTATIN CALCIUM 20 MG TABLET PO SCH (08:44)
[2018-04-29] MEDS: GABAPENTIN 300 MG CAPSULE PO SCH ×3 (08:44→17:44)
[2018-04-29] MEDS: OMEPRAZOLE 20 MG CAPSULE PO SCH (08:44)
[2018-04-29 11:48] LABS: GLUCOMETER DEV NAME(LOC) 3EX.; GLUCOSE,POINT OF CARE 97 MG/DL (70-110)
[2018-04-29] MEDS: FLUoxetine HCL 20 MG CAPSULE PO SCH (11:54)
[2018-04-29 13:37] VITALS: BP 142/86
[2018-04-29] MEDS ORDERED: TiZANidine HCL 4 MG TABLET PO PRN (13:45)
[2018-04-29 15:50] VITALS: BP 148/92
[2018-04-29 16:03] LABS: GLUCOMETER DEV NAME(LOC) 3EX.; GLUCOSE,POINT OF CARE 113 MG/DL (70-110)
[2018-04-29 16:56] VITALS: BP 162/91
[2018-04-29] MEDS: ZIPRASIDONE HCL 80 MG CAPSULE PO SCH (17:44)
[2018-04-29] MEDS: PHENYTOIN SODIUM 100 MG ER CAPSULE PO SCH (20:45)
[2018-04-29 22:23] LABS: GLUCOMETER DEV NAME(LOC) 3EX.; GLUCOSE,POINT OF CARE 130 MG/DL (70-110)
[2018-04-30 04:50] VITALS: BP 133/71
[2018-04-30 05:54] LABS: GLUCOMETER DEV NAME(LOC) 3E.I; GLUCOSE,POINT OF CARE 122 MG/DL (70-110)
[2018-04-30] MEDS: ZIPRASIDONE HCL 80 MG CAPSULE PO SCH ×2 (07:05→16:01)
[2018-04-30] MEDS: MetFORMIN HCL 500 MG TABLET PO SCH ×2 (07:05→16:01)
[2018-04-30] MEDS: MONTELUKAST SODIUM 10 MG TABLET PO SCH (09:03)
[2018-04-30] MEDS: ATORVASTATIN CALCIUM 20 MG TABLET PO SCH (09:03)
[2018-04-30] MEDS: FLUoxetine HCL 20 MG CAPSULE PO SCH (09:03)
[2018-04-30] MEDS: LISINOPRIL 10 MG TABLET PO SCH (09:03)
[2018-04-30] MEDS: OMEPRAZOLE 20 MG CAPSULE PO SCH (09:04)
[2018-04-30] MEDS: GABAPENTIN 300 MG CAPSULE PO SCH ×3 (09:04→16:02)
[2018-04-30] MEDS: BENZONATATE 100 MG CAPSULE PO SCH ×3 (09:04→16:02)
[2018-04-30] MEDS: LevETIRAcetam 500 MG TABLET PO SCH ×2 (09:04→16:02)
[2018-04-30 11:51] VITALS: BP 136/74
[2018-04-30 12:24] LABS: GLUCOMETER DEV NAME(LOC) 3EX.; GLUCOSE,POINT OF CARE 81 MG/DL (70-110)
[2018-04-30 16:58] LABS: GLUCOMETER DEV NAME(LOC) 3EX.; GLUCOSE,POINT OF CARE 103 MG/DL (70-110)
[2018-04-30 17:05] VITALS: BP 142/73
[2018-04-30] MEDS: PHENYTOIN SODIUM 100 MG ER CAPSULE PO SCH (20:01)
[2018-04-30 20:13] LABS: GLUCOMETER DEV NAME(LOC) 3EX.; GLUCOSE,POINT OF CARE 111 MG/DL (70-110)
[2018-05-01 05:08] VITALS: BP 130/75
[2018-05-01 05:54] LABS: GLUCOMETER DEV NAME(LOC) 3E.I; GLUCOSE,POINT OF CARE 118 MG/DL (70-110)
[2018-05-01] MEDS: ZIPRASIDONE HCL 80 MG CAPSULE PO SCH ×2 (06:51→17:42)
[2018-05-01] MEDS: MetFORMIN HCL 500 MG TABLET PO SCH ×2 (06:51→17:42)
[2018-05-01 08:00] VITALS: BP 138/71
[2018-05-01] MEDS: FLUoxetine HCL 20 MG CAPSULE PO SCH (08:19)
[2018-05-01] MEDS: BENZONATATE 100 MG CAPSULE PO SCH ×3 (08:19→17:06)
[2018-05-01] MEDS: LISINOPRIL 10 MG TABLET PO SCH (08:19)
[2018-05-01] MEDS: MONTELUKAST SODIUM 10 MG TABLET PO SCH (08:19)
[2018-05-01] MEDS: ATORVASTATIN CALCIUM 20 MG TABLET PO SCH (08:19)
[2018-05-01] MEDS: LevETIRAcetam 500 MG TABLET PO SCH ×2 (08:19→17:06)
[2018-05-01] MEDS: OMEPRAZOLE 20 MG CAPSULE PO SCH (08:20)
[2018-05-01] MEDS: GABAPENTIN 300 MG CAPSULE PO SCH ×3 (08:20→17:07)
[2018-05-01] MEDS: HALOPERIDOL 5 MG TABLET PO PRN (08:25)
[2018-05-01 11:09] LABS: GLUCOMETER DEV NAME(LOC) 3EX.; GLUCOSE,POINT OF CARE 94 MG/DL (70-110)
[2018-05-01] MEDS: INSULIN LISPRO 100 UNITS/ML SQ PRN (11:32)
[2018-05-01 16:54] VITALS: BP 141/97
[2018-05-01 17:08] LABS: GLUCOMETER DEV NAME(LOC) 3EX.; GLUCOSE,POINT OF CARE 133 MG/DL (70-110)
[2018-05-01] MEDS: PHENYTOIN SODIUM 100 MG ER CAPSULE PO SCH (20:26)
[2018-05-01 20:48] LABS: GLUCOMETER DEV NAME(LOC) 3EX.; GLUCOSE,POINT OF CARE 111 MG/DL (70-110)
[2018-05-02 03:35] VITALS: BP 117/72
[2018-05-02 06:10] LABS: GLUCOMETER DEV NAME(LOC) 3E.I; GLUCOSE,POINT OF CARE 103 MG/DL (70-110)
[2018-05-02] MEDS: MetFORMIN HCL 500 MG TABLET PO SCH ×2 (07:01→17:02)
[2018-05-02] MEDS: ZIPRASIDONE HCL 80 MG CAPSULE PO SCH ×2 (07:01→16:20)
[2018-05-02 08:05] VITALS: BP 135/76
[2018-05-02] MEDS ORDERED: LOPERAMIDE HCL 2 MG CAPSULE PO ONE (10:15)
[2018-05-02] MEDS: GABAPENTIN 300 MG CAPSULE PO SCH ×3 (10:19→16:20)
[2018-05-02] MEDS: OMEPRAZOLE 20 MG CAPSULE PO SCH (10:19)
[2018-05-02] MEDS: FLUoxetine HCL 20 MG CAPSULE PO SCH (10:19)
[2018-05-02] MEDS: LevETIRAcetam 500 MG TABLET PO SCH ×2 (10:19→16:19)
[2018-05-02] MEDS: MONTELUKAST SODIUM 10 MG TABLET PO SCH (10:19)
[2018-05-02] MEDS: BENZONATATE 100 MG CAPSULE PO SCH ×3 (10:19→16:20)
[2018-05-02] MEDS: ATORVASTATIN CALCIUM 20 MG TABLET PO SCH (10:20)
[2018-05-02] MEDS: LISINOPRIL 10 MG TABLET PO SCH (10:20)
[2018-05-02 11:38] LABS: GLUCOMETER DEV NAME(LOC) 3EX.; GLUCOSE,POINT OF CARE 85 MG/DL (70-110)
[2018-05-02] MEDS: LORazepam 2 MG TABLET PO PRN (16:19)
[2018-05-02 17:48] LABS: GLUCOMETER DEV NAME(LOC) 3EX.; GLUCOSE,POINT OF CARE 109 MG/DL (70-110)
[2018-05-02 17:51] VITALS: BP 141/80
[2018-05-02] MEDS: PHENYTOIN SODIUM 100 MG ER CAPSULE PO SCH (20:22)
[2018-05-02 20:23] LABS: GLUCOMETER DEV NAME(LOC) 3EX.; GLUCOSE,POINT OF CARE 109 MG/DL (70-110)
[2018-05-03 04:16] VITALS: BP 139/64
[2018-05-03 05:49] LABS: GLUCOMETER DEV NAME(LOC) 3E.I; GLUCOSE,POINT OF CARE 108 MG/DL (70-110)
[2018-05-03] MEDS: ZIPRASIDONE HCL 80 MG CAPSULE PO SCH ×2 (06:54→16:52)
[2018-05-03] MEDS: MetFORMIN HCL 500 MG TABLET PO SCH ×2 (06:54→16:53)
[2018-05-03] MEDS: OMEPRAZOLE 20 MG CAPSULE PO SCH (08:02)
[2018-05-03] MEDS: MONTELUKAST SODIUM 10 MG TABLET PO SCH (08:02)
[2018-05-03] MEDS: BENZONATATE 100 MG CAPSULE PO SCH ×3 (08:02→16:53)
[2018-05-03] MEDS: LISINOPRIL 10 MG TABLET PO SCH (08:02)
[2018-05-03] MEDS: ATORVASTATIN CALCIUM 20 MG TABLET PO SCH (08:02)
[2018-05-03] MEDS: LORazepam 2 MG TABLET PO PRN (08:02)
[2018-05-03] MEDS: HALOPERIDOL 5 MG TABLET PO PRN (08:02)
[2018-05-03] MEDS: GABAPENTIN 300 MG CAPSULE PO SCH ×3 (08:03→16:53)
[2018-05-03] MEDS: LevETIRAcetam 500 MG TABLET PO SCH ×2 (08:03→16:53)
[2018-05-03] MEDS: FLUoxetine HCL 20 MG CAPSULE PO SCH (08:03)
[2018-05-03 08:05] VITALS: BP 142/73
[2018-05-03 12:03] LABS: GLUCOMETER DEV NAME(LOC) 3EX.; GLUCOSE,POINT OF CARE 86 MG/DL (70-110)
[2018-05-03] MEDS ORDERED: LORazepam 2 MG/ML VIAL ONE (15:36)
[2018-05-03] MEDS ORDERED: HALOPERIDOL LACTATE 5 MG/ML VIAL ONE (15:36)
[2018-05-03] MEDS ORDERED: LORazepam 2 MG/ML VIAL IM ONE (15:45)
[2018-05-03] MEDS ORDERED: HALOPERIDOL LACTATE 5 MG/ML VIAL IM ONE (15:45)
[2018-05-03 17:19] LABS: GLUCOMETER DEV NAME(LOC) 3EX.; GLUCOSE,POINT OF CARE 99 MG/DL (70-110)
[2018-05-03 18:21] VITALS: BP 125/89
[2018-05-03] MEDS: PHENYTOIN SODIUM 100 MG ER CAPSULE PO SCH (20:11)
[2018-05-03 20:28] LABS: GLUCOMETER DEV NAME(LOC) 3EX.; GLUCOSE,POINT OF CARE 120 MG/DL (70-110)
[2018-05-04 05:34] LABS: GLUCOMETER DEV NAME(LOC) 3E.I; GLUCOSE,POINT OF CARE 212 MG/DL (70-110)
[2018-05-04 06:30] VITALS: BP 119/79
[2018-05-04] MEDS: ZIPRASIDONE HCL 80 MG CAPSULE PO SCH ×2 (07:13→07:21)
[2018-05-04] MEDS: MetFORMIN HCL 500 MG TABLET PO SCH ×3 (07:13→17:21)
[2018-05-04] MEDS: INSULIN LISPRO 100 UNITS/ML SQ PRN ×2 (07:27→21:16)
[2018-05-04 08:00] VITALS: BP 139/63
[2018-05-04] MEDS: LevETIRAcetam 500 MG TABLET PO SCH ×2 (08:02→16:21)
[2018-05-04] MEDS: GABAPENTIN 300 MG CAPSULE PO SCH ×2 (08:02→16:21)
[2018-05-04] MEDS: ATORVASTATIN CALCIUM 20 MG TABLET PO SCH (08:03)
[2018-05-04] MEDS: OMEPRAZOLE 20 MG CAPSULE PO SCH (08:05)
[2018-05-04] MEDS: FLUoxetine HCL 20 MG CAPSULE PO SCH (08:05)
[2018-05-04] MEDS: MONTELUKAST SODIUM 10 MG TABLET PO SCH (08:06)
[2018-05-04] MEDS: BENZONATATE 100 MG CAPSULE PO SCH ×2 (08:07→16:21)
[2018-05-04] MEDS: LISINOPRIL 10 MG TABLET PO SCH (09:00)
[2018-05-04 11:19] LABS: GLUCOMETER DEV NAME(LOC) 3EX.; GLUCOSE,POINT OF CARE 85 MG/DL (70-110)
[2018-05-04 16:24] LABS: GLUCOMETER DEV NAME(LOC) 3EX.; GLUCOSE,POINT OF CARE 119 MG/DL (70-110)
[2018-05-04] MEDS: LORazepam 2 MG TABLET PO PRN (16:40)
[2018-05-04 16:45] VITALS: BP 130/67
[2018-05-04] MEDS: PHENYTOIN SODIUM 100 MG ER CAPSULE PO SCH (20:42)
[2018-05-04 20:53] LABS: GLUCOMETER DEV NAME(LOC) 3EX.; GLUCOSE,POINT OF CARE 148 MG/DL (70-110)
[2018-05-05 05:54] LABS: GLUCOMETER DEV NAME(LOC) 3E.I; GLUCOSE,POINT OF CARE 171 MG/DL (70-110)
[2018-05-05 06:43] VITALS: BP 126/70
[2018-05-05] MEDS: MetFORMIN HCL 500 MG TABLET PO SCH ×2 (07:05→17:23)
[2018-05-05] MEDS: ZIPRASIDONE HCL 80 MG CAPSULE PO SCH ×2 (07:05→17:23)
[2018-05-05] MEDS: INSULIN LISPRO 100 UNITS/ML SQ PRN ×2 (07:08→17:04)
[2018-05-05] MEDS: BENZONATATE 100 MG CAPSULE PO SCH ×3 (08:10→16:27)
[2018-05-05] MEDS: MONTELUKAST SODIUM 10 MG TABLET PO SCH (08:10)
[2018-05-05] MEDS: FLUoxetine HCL 20 MG CAPSULE PO SCH (08:10)
[2018-05-05] MEDS: LISINOPRIL 10 MG TABLET PO SCH (08:10)
[2018-05-05] MEDS: OMEPRAZOLE 20 MG CAPSULE PO SCH (08:11)
[2018-05-05] MEDS: ATORVASTATIN CALCIUM 20 MG TABLET PO SCH (08:11)
[2018-05-05] MEDS: GABAPENTIN 300 MG CAPSULE PO SCH ×3 (08:11→16:27)
[2018-05-05] MEDS: LevETIRAcetam 500 MG TABLET PO SCH ×2 (08:12→16:27)
[2018-05-05 09:00] VITALS: BP 99/68
[2018-05-05] MEDS ORDERED: LOPERAMIDE HCL 2 MG CAPSULE PO PRN (09:30)
[2018-05-05 11:25] LABS: GLUCOMETER DEV NAME(LOC) 3EX.; GLUCOSE,POINT OF CARE 103 MG/DL (70-110)
[2018-05-05 16:29] LABS: GLUCOMETER DEV NAME(LOC) 3EX.; GLUCOSE,POINT OF CARE 166 MG/DL (70-110)
[2018-05-05 16:36] VITALS: BP 116/66
[2018-05-05] MEDS: PHENYTOIN SODIUM 100 MG ER CAPSULE PO SCH (21:42)
[2018-05-05 22:01] LABS: GLUCOMETER DEV NAME(LOC) 3EX.; GLUCOSE,POINT OF CARE 116 MG/DL (70-110)
[2018-05-06 05:59] LABS: GLUCOMETER DEV NAME(LOC) 3E.I; GLUCOSE,POINT OF CARE 128 MG/DL (70-110)
[2018-05-06] MEDS: MetFORMIN HCL 500 MG TABLET PO SCH ×2 (06:59→16:37)
[2018-05-06] MEDS: ZIPRASIDONE HCL 80 MG CAPSULE PO SCH ×2 (06:59→16:36)
[2018-05-06 08:05] VITALS: BP 116/63
[2018-05-06] MEDS: BENZONATATE 100 MG CAPSULE PO SCH ×3 (08:57→16:37)
[2018-05-06] MEDS: MONTELUKAST SODIUM 10 MG TABLET PO SCH (08:57)
[2018-05-06] MEDS: ATORVASTATIN CALCIUM 20 MG TABLET PO SCH (08:57)
[2018-05-06] MEDS: LISINOPRIL 10 MG TABLET PO SCH (08:57)
[2018-05-06] MEDS: FLUoxetine HCL 20 MG CAPSULE PO SCH (08:57)
[2018-05-06] MEDS: OMEPRAZOLE 20 MG CAPSULE PO SCH (08:57)
[2018-05-06] MEDS: LevETIRAcetam 500 MG TABLET PO SCH ×2 (08:58→16:37)
[2018-05-06] MEDS: GABAPENTIN 300 MG CAPSULE PO SCH ×3 (08:58→16:36)
[2018-05-06 11:35] LABS: GLUCOMETER DEV NAME(LOC) 3EX.; GLUCOSE,POINT OF CARE 122 MG/DL (70-110)
[2018-05-06 16:29] LABS: GLUCOMETER DEV NAME(LOC) 3EX.; GLUCOSE,POINT OF CARE 115 MG/DL (70-110)
[2018-05-06 16:34] VITALS: BP 131/70
[2018-05-06] MEDS: PHENYTOIN SODIUM 100 MG ER CAPSULE PO SCH (21:06)
[2018-05-06] MEDS: INSULIN LISPRO 100 UNITS/ML SQ PRN (21:10)
[2018-05-06 21:18] LABS: GLUCOMETER DEV NAME(LOC) 3EX.; GLUCOSE,POINT OF CARE 162 MG/DL (70-110)
[2018-05-07 00:42] VITALS: BP 125/62
[2018-05-07 05:48] LABS: GLUCOMETER DEV NAME(LOC) 3E.I; GLUCOSE,POINT OF CARE 112 MG/DL (70-110)
[2018-05-07] MEDS: MetFORMIN HCL 500 MG TABLET PO SCH (07:06)
[2018-05-07] MEDS: ZIPRASIDONE HCL 80 MG CAPSULE PO SCH (07:06)
[2018-05-07] MEDS: FLUoxetine HCL 20 MG CAPSULE PO SCH (08:13)
[2018-05-07] MEDS: GABAPENTIN 300 MG CAPSULE PO SCH (08:13)
[2018-05-07] MEDS: LISINOPRIL 10 MG TABLET PO SCH (08:13)
[2018-05-07] MEDS: OMEPRAZOLE 20 MG CAPSULE PO SCH (08:13)
[2018-05-07] MEDS: LevETIRAcetam 500 MG TABLET PO SCH (08:14)
[2018-05-07] MEDS: MONTELUKAST SODIUM 10 MG TABLET PO SCH (08:14)
[2018-05-07] MEDS: ATORVASTATIN CALCIUM 20 MG TABLET PO SCH (08:14)
[2018-05-07] MEDS: BENZONATATE 100 MG CAPSULE PO SCH (08:14)
[2018-05-07 09:33] VITALS: BP 112/73
== END 2018-05-07 10:55 | disposition home or self-care (01) | DRG 885 ==
LOC: EMS 17:16 → 3EX 20:30
PROC: 5A09357 Assistance with Respiratory Ventilation, Less than 24 Consecutive Hours, Continuous Positive Airway Pressure (ICD-10-PCS; principal; 2018-05-03)
PROC: 5A09357 Assistance with Respiratory Ventilation, Less than 24 Consecutive Hours, Continuous Positive Airway Pressure (ICD-10-PCS; 2018-05-05)
PROC: 5A09357 Assistance with Respiratory Ventilation, Less than 24 Consecutive Hours, Continuous Positive Airway Pressure (ICD-10-PCS; 2018-05-06)
DX: F25.0 Schizoaffective disorder, bipolar type (principal); R45.851 Suicidal ideations; F15.20 Other stimulant dependence, uncomplicated; G40.909 Epilepsy, unspecified, not intractable, without status epilepticus; F79 Unspecified intellectual disabilities; I10 Essential (primary) hypertension; E78.5 Hyperlipidemia, unspecified; H91.90 Unspecified hearing loss, unspecified ear; J44.9 Chronic obstructive pulmonary disease, unspecified; E11.9 Type 2 diabetes mellitus without complications; G47.33 Obstructive sleep apnea (adult) (pediatric); E66.01 Morbid (severe) obesity due to excess calories; D64.9 Anemia, unspecified; R19.7 Diarrhea, unspecified; T38.3X5A Adverse effect of insulin and oral hypoglycemic [antidiabetic] drugs, initial encounter; R62.50 Unspecified lack of expected normal physiological development in childhood; M54.9 Dorsalgia, unspecified; S00.93XA Contusion of unspecified part of head, initial encounter; X58.XXXA Exposure to other specified factors, initial encounter; F41.9 Anxiety disorder, unspecified; Z90.49 Acquired absence of other specified parts of digestive tract; Z88.6 Allergy status to analgesic agent; Z59.0 Homelessness; Y92.89 Other specified places as the place of occurrence of the external cause; Z79.899 Other long term (current) drug therapy; Y93.89 Activity, other specified; Y99.8 Other external cause status; Z88.5 Allergy status to narcotic agent; Z91.018 Allergy to other foods; G89.29 Other chronic pain; Z83.3 Family history of diabetes mellitus; Z91.5 Personal history of self-harm; Z68.27 Body mass index [BMI] 27.0-27.9, adult; Z81.8 Family history of other mental and behavioral disorders; Z82.49 Family history of ischemic heart disease and other diseases of the circulatory system; Z79.82 Long term (current) use of aspirin
CPT/HCPCS: 70450; 83036; 94660; G0378; G0480; J1630; J2060

== ENCOUNTER 2018-05-12 18:28 | Inpatient (IN) | payer MEDICARE, MEDICAID ==
[~2018-05-12] VITALS: Ht 162.6 cm; Wt 67.1 kg
[~2018-05-12 18:28] MED LIST changes: -CHLO50 PO; -DIVA500T52 PO; -FERR325T22 PO; -INSNOV SQ; -MECL-111 PO
[2018-05-12 20:13] LABS: BASOPHILS % (AUTO) 0.6 % (0.0-2.0); EOSINOPHILS % (AUTO) 2.4 % (1.0-6.0); HEMATOCRIT 30.3 % (41-53); HEMOGLOBIN 9.9 g/dL (13.5-17.5); LYMPHOCYTES # (AUTO) 1.4 K/uL (1.0-4.8); LYMPHOCYTES % (AUTO) 13.6 % (22.0-44.0); MEAN CORPUSCULAR HEMOGLOBIN 31.7 pg (26.0-34.0); MEAN CORPUSCULAR HGB CONC 32.6 G/dL (31.0-37.0); MEAN CORPUSCULAR VOLUME 97 fL (80-100); MONOCYTES # (AUTO) 1.1 K/uL (0.1-1.0); MONOCYTES % (AUTO) 10.4 % (2.0-9.0); NEUTROPHILS # (AUTO) 7.5 K/uL (1.8-7.7); PLATELET COUNT (AUTO) 423 K/uL (150-450); RED BLOOD CELL COUNT(AUTO) 3.12 MIL/uL (4.50-5.90); RED CELL DISTRIBUTION WIDTH 17.9 % (11.5-14.5)
[2018-05-12 20:22] LABS: ANION GAP 8 mmol/L (8-16); CALCIUM, TOTAL 8.8 mg/dL (8.8-10.5); CARBON DIOXIDE 27 mmol/L (22-29); CHLORIDE 102 mmol/L (98-107); CREATININE 0.74 mg/dL (0.60-1.30); GLOMERULAR FILTR. RATE CALC > 60 mL/min (>60); GLUCOSE,RANDOM 130 mg/dL (70-110); POTASSIUM 4.5 mmol/L (3.5-5.1); SODIUM SERUM 137 mmol/L (136-145); UREA NITROGEN, BLOOD 16 mg/dL (7-18)
[2018-05-12 20:28] LABS: ALANINE AMINOTRANSFERASE 21 U/L (12-78); ALBUMIN 3.4 g/dL (3.4-5.0); ALKALINE PHOSPHATASE 63 U/L (46-116); ASPARTATE AMINOTRANSFERASE 22 U/L (15-37); BILIRUBIN,TOTAL 0.1 mg/dL (0.1-1.0); TOTAL PROTEIN, SERUM 8.1 g/dL (6.4-8.2)
[2018-05-12 20:50] LABS: AMPHET/METH SCREEN,URINE NEGATIVE (NEGATIVE); BARBITURATE SCREEN, URINE NEGATIVE (NEGATIVE); BENZODIAZEPINES SCREEN,URINE NEGATIVE (NEGATIVE); CANNABINOID SCREEN,URINE NEGATIVE (NEGATIVE); COCAINE SCREEN,URINE NEGATIVE (NEGATIVE); METHADONE SCREEN, URINE NEGATIVE (NEGATIVE); OPIATE SCREEN,URINE NEGATIVE (NEGATIVE)
[2018-05-12 20:51] LABS: PHENCYCLIDINE SCREEN,URINE NEGATIVE (NEGATIVE)
[2018-05-13] MEDS ORDERED: HALOPERIDOL 5 MG TABLET PO PRN
[2018-05-13] MEDS ORDERED: LORazepam 2 MG TABLET PO PRN
[2018-05-13] MEDS ORDERED: ZOLPIDEM TARTRATE 10 MG TABLET PO PRN
[2018-05-13 01:54] VITALS: BP 159/87
[2018-05-13] MEDS ORDERED: PNEUMOCOCCAL VACCINE POLYVALENT 0.5 ML VIAL [PPSV23] IM ONE (04:00)
[2018-05-13 06:26] LABS: CHOL/HDL RATIO 2.1 (4.2-7.3)
[2018-05-13 06:49] LABS: GLUCOMETER DEV NAME(LOC) 3E.I; GLUCOSE,POINT OF CARE 96 MG/DL (70-110)
[2018-05-13 08:30] VITALS: BP 142/104
[2018-05-13] MEDS: FLUoxetine HCL 20 MG CAPSULE PO SCH (11:34)
[2018-05-13 12:09] LABS: GLUCOMETER DEV NAME(LOC) 3EX.; GLUCOSE,POINT OF CARE 142 MG/DL (70-110)
[2018-05-13] MEDS: GABAPENTIN 300 MG CAPSULE PO SCH ×2 (12:53→16:23)
[2018-05-13] MEDS: BENZONATATE 100 MG CAPSULE PO SCH ×2 (12:53→16:21)
[2018-05-13 16:16] VITALS: BP 145/78
[2018-05-13] MEDS: ZIPRASIDONE HCL 80 MG CAPSULE PO SCH (16:21)
[2018-05-13] MEDS: MetFORMIN HCL 500 MG TABLET PO SCH (16:23)
[2018-05-13] MEDS: LevETIRAcetam 500 MG TABLET PO SCH (16:24)
[2018-05-13 16:29] LABS: GLUCOMETER DEV NAME(LOC) 3EX.; GLUCOSE,POINT OF CARE 95 MG/DL (70-110)
[2018-05-13] MEDS: PHENYTOIN SODIUM 100 MG ER CAPSULE PO SCH (20:49)
[2018-05-13 20:54] LABS: GLUCOMETER DEV NAME(LOC) 3EX.; GLUCOSE,POINT OF CARE 131 MG/DL (70-110)
[2018-05-14 05:59] LABS: GLUCOMETER DEV NAME(LOC) 3E.I; GLUCOSE,POINT OF CARE 120 MG/DL (70-110)
[2018-05-14] MEDS: MetFORMIN HCL 500 MG TABLET PO SCH ×2 (06:31→16:29)
[2018-05-14] MEDS: ZIPRASIDONE HCL 80 MG CAPSULE PO SCH ×2 (06:32→16:27)
[2018-05-14 08:14] VITALS: BP 114/68
[2018-05-14] MEDS: LevETIRAcetam 500 MG TABLET PO SCH ×2 (08:28→16:27)
[2018-05-14] MEDS: GABAPENTIN 300 MG CAPSULE PO SCH ×3 (08:28→16:27)
[2018-05-14] MEDS: ATORVASTATIN CALCIUM 20 MG TABLET PO SCH (08:28)
[2018-05-14] MEDS: FLUoxetine HCL 20 MG CAPSULE PO SCH (08:28)
[2018-05-14] MEDS: OMEPRAZOLE 20 MG CAPSULE PO SCH (08:28)
[2018-05-14] MEDS: BENZONATATE 100 MG CAPSULE PO SCH ×3 (08:29→16:27)
[2018-05-14] MEDS: LISINOPRIL 10 MG TABLET PO SCH (08:29)
[2018-05-14] MEDS: MONTELUKAST SODIUM 10 MG TABLET PO SCH (08:29)
[2018-05-14 11:18] LABS: GLUCOMETER DEV NAME(LOC) 3EX.; GLUCOSE,POINT OF CARE 75 MG/DL (70-110)
[2018-05-14 17:12] VITALS: BP 126/71
[2018-05-14 17:20] LABS: GLUCOMETER DEV NAME(LOC) 3EX.; GLUCOSE,POINT OF CARE 90 MG/DL (70-110)
[2018-05-14] MEDS: PHENYTOIN SODIUM 100 MG ER CAPSULE PO SCH (20:09)
[2018-05-14 20:34] LABS: GLUCOMETER DEV NAME(LOC) 3EX.; GLUCOSE,POINT OF CARE 83 MG/DL (70-110)
[2018-05-15 06:14] LABS: GLUCOMETER DEV NAME(LOC) 3E.I; GLUCOSE,POINT OF CARE 101 MG/DL (70-110)
[2018-05-15] MEDS: MetFORMIN HCL 500 MG TABLET PO SCH ×2 (06:55→16:41)
[2018-05-15] MEDS: ZIPRASIDONE HCL 80 MG CAPSULE PO SCH ×2 (06:55→16:42)
[2018-05-15 08:05] VITALS: BP 117/60
[2018-05-15] MEDS: LevETIRAcetam 500 MG TABLET PO SCH ×2 (08:13→16:41)
[2018-05-15] MEDS: ATORVASTATIN CALCIUM 20 MG TABLET PO SCH (08:14)
[2018-05-15] MEDS: GABAPENTIN 300 MG CAPSULE PO SCH ×3 (08:15→16:42)
[2018-05-15] MEDS: FLUoxetine HCL 20 MG CAPSULE PO SCH (08:15)
[2018-05-15] MEDS: BENZONATATE 100 MG CAPSULE PO SCH ×3 (08:15→16:40)
[2018-05-15] MEDS: MONTELUKAST SODIUM 10 MG TABLET PO SCH (08:15)
[2018-05-15] MEDS: OMEPRAZOLE 20 MG CAPSULE PO SCH (08:15)
[2018-05-15] MEDS: LISINOPRIL 10 MG TABLET PO SCH (08:16)
[2018-05-15] MEDS ORDERED: LOPERAMIDE HCL 2 MG CAPSULE PO PRN (08:30)
[2018-05-15 10:44] LABS: GLUCOMETER DEV NAME(LOC) 3EX.; GLUCOSE,POINT OF CARE 126 MG/DL (70-110)
[2018-05-15 11:29] LABS: GLUCOMETER DEV NAME(LOC) 3EX.; GLUCOSE,POINT OF CARE 143 MG/DL (70-110)
[2018-05-15 16:49] LABS: GLUCOMETER DEV NAME(LOC) 3EX.; GLUCOSE,POINT OF CARE 109 MG/DL (70-110)
== END 2018-05-15 17:10 | disposition home or self-care (01) | DRG 885 ==
LOC: EMS 18:29 → 3EX 23:30
DX: F25.0 Schizoaffective disorder, bipolar type (principal); F79 Unspecified intellectual disabilities; R45.851 Suicidal ideations; F15.20 Other stimulant dependence, uncomplicated; I10 Essential (primary) hypertension; J45.909 Unspecified asthma, uncomplicated; G40.909 Epilepsy, unspecified, not intractable, without status epilepticus; R42 Dizziness and giddiness; E11.9 Type 2 diabetes mellitus without complications; E78.5 Hyperlipidemia, unspecified; G47.33 Obstructive sleep apnea (adult) (pediatric); H91.90 Unspecified hearing loss, unspecified ear; J44.9 Chronic obstructive pulmonary disease, unspecified; K21.9 Gastro-esophageal reflux disease without esophagitis; Z79.899 Other long term (current) drug therapy; Z82.49 Family history of ischemic heart disease and other diseases of the circulatory system; Z91.5 Personal history of self-harm; Z83.3 Family history of diabetes mellitus; F41.9 Anxiety disorder, unspecified; G89.29 Other chronic pain; M54.9 Dorsalgia, unspecified
CPT/HCPCS: 83036; 87081; G0378; G0480

== ENCOUNTER 2018-05-26 12:42 | Emergency (ER) | payer MEDICARE, OTHER ==
[~2018-05-26] VITALS: Ht 162.6 cm; Wt 64.1 kg
[2018-05-26] MEDS ORDERED: LISI-661 PO (13:06)
[2018-05-26 13:31] LABS: ANION GAP 12 mmol/L (8-16); CALCIUM, TOTAL 8.6 mg/dL (8.8-10.5); CARBON DIOXIDE 25 mmol/L (22-29); CHLORIDE 104 mmol/L (98-107); CREATININE 0.82 mg/dL (0.60-1.30); GLOMERULAR FILTR. RATE CALC > 60 mL/min (>60); GLUCOSE,RANDOM 131 mg/dL (70-110); POTASSIUM 4.5 mmol/L (3.5-5.1); SODIUM SERUM 141 mmol/L (136-145); UREA NITROGEN, BLOOD 21 mg/dL (7-18)
[2018-05-26 13:51] LABS: PHENYTOIN (DILANTIN) 13.9 mcg/mL (10.0-20.0)
[2018-05-26 14:55] VITALS: BP 121/84
[2018-05-26 16:04] LABS: GLUCOSE,POINT OF CARE 134 MG/DL (70-110)
== END 2018-05-26 16:36 | disposition home or self-care (01) ==
LOC: EMS 12:42
DX: G40.909 Epilepsy, unspecified, not intractable, without status epilepticus (principal); E11.9 Type 2 diabetes mellitus without complications; I10 Essential (primary) hypertension; G89.29 Other chronic pain; M54.9 Dorsalgia, unspecified; F20.9 Schizophrenia, unspecified; F41.9 Anxiety disorder, unspecified; Z79.899 Other long term (current) drug therapy; Z88.6 Allergy status to analgesic agent; Z88.8 Allergy status to other drugs, medicaments and biological substances; Z91.018 Allergy to other foods; Z91.048 Other nonmedicinal substance allergy status
CPT/HCPCS: 82948

== ENCOUNTER 2018-05-28 09:20 | Emergency (ER) | payer MEDICARE, OTHER ==
[~2018-05-28] VITALS: Ht 157.5 cm; Wt 56.8 kg
[2018-05-28 10:07] LABS: BASOPHILS % (AUTO) 0.5 % (0.0-2.0); EOSINOPHILS % (AUTO) 1.5 % (1.0-6.0); HEMATOCRIT 30.4 % (41-53); HEMOGLOBIN 9.9 g/dL (13.5-17.5); LYMPHOCYTES # (AUTO) 1.5 K/uL (1.0-4.8); LYMPHOCYTES % (AUTO) 18.4 % (22.0-44.0); MEAN CORPUSCULAR HEMOGLOBIN 32.7 pg (26.0-34.0); MEAN CORPUSCULAR HGB CONC 32.6 G/dL (31.0-37.0); MEAN CORPUSCULAR VOLUME 100 fL (80-100); MONOCYTES # (AUTO) 0.9 K/uL (0.1-1.0); MONOCYTES % (AUTO) 11.1 % (2.0-9.0); NEUTROPHILS # (AUTO) 5.7 K/uL (1.8-7.7); NEUTROPHILS % (AUTO) 68.5 % (40.0-70.0); PLATELET COUNT (AUTO) 299 K/uL (150-450); RED BLOOD CELL COUNT(AUTO) 3.03 MIL/uL (4.50-5.90)
[2018-05-28 10:14] LABS: GLUCOSE,POINT OF CARE 70 MG/DL (70-110)
[2018-05-28 10:24] LABS: ANION GAP 11 mmol/L (8-16); CALCIUM, TOTAL 8.6 mg/dL (8.8-10.5); CARBON DIOXIDE 25 mmol/L (22-29); CHLORIDE 103 mmol/L (98-107); CREATININE 0.87 mg/dL (0.60-1.30); GLOMERULAR FILTR. RATE CALC > 60 mL/min (>60); GLUCOSE,RANDOM 77 mg/dL (70-110); POTASSIUM 4.2 mmol/L (3.5-5.1); SODIUM SERUM 139 mmol/L (136-145); UREA NITROGEN, BLOOD 16 mg/dL (7-18)
[2018-05-28 10:29] LABS: ALANINE AMINOTRANSFERASE 13 U/L (12-78); ALBUMIN 3.4 g/dL (3.4-5.0); ALKALINE PHOSPHATASE 57 U/L (46-116); ASPARTATE AMINOTRANSFERASE 18 U/L (15-37); BILIRUBIN,TOTAL 0.1 mg/dL (0.1-1.0); TOTAL PROTEIN, SERUM 7.5 g/dL (6.4-8.2)
[2018-05-28 10:30] LABS: ACETAMINOPHEN < 2 mcg/mL (10-30)
[2018-05-28 11:07] LABS: SALICYLATE < 2.8 mg/dL (2.8-20.0)
[2018-05-28 13:34] VITALS: BP 113/67
== END 2018-05-28 13:49 | disposition home or self-care (01) ==
LOC: EMS 09:20
DX: F31.9 Bipolar disorder, unspecified (principal); D64.9 Anemia, unspecified; F41.9 Anxiety disorder, unspecified; F20.9 Schizophrenia, unspecified; J45.909 Unspecified asthma, uncomplicated; E11.9 Type 2 diabetes mellitus without complications; I10 Essential (primary) hypertension; G89.29 Other chronic pain; Z88.8 Allergy status to other drugs, medicaments and biological substances; Z88.6 Allergy status to analgesic agent; Z88.5 Allergy status to narcotic agent; Z91.018 Allergy to other foods; Z79.899 Other long term (current) drug therapy; Z79.84 Long term (current) use of oral hypoglycemic drugs
CPT/HCPCS: 36415; 80053; 82962; 85025; 93005; 99285; G0480; G0481

== ENCOUNTER 2018-06-10 17:41 | Emergency (ER) | payer MEDICARE, OTHER ==
[~2018-06-10] VITALS: Ht 154.9 cm; Wt 31.4 kg
[2018-06-10 18:25] VITALS: BP 121/66
[2018-06-10 19:13] LABS: BASOPHILS % (AUTO) 0.6 % (0.0-2.0); EOSINOPHILS % (AUTO) 2.1 % (1.0-6.0); HEMATOCRIT 30.3 % (41-53); HEMOGLOBIN 9.9 g/dL (13.5-17.5); LYMPHOCYTES # (AUTO) 1.8 K/uL (1.0-4.8); LYMPHOCYTES % (AUTO) 24.6 % (22.0-44.0); MEAN CORPUSCULAR HEMOGLOBIN 33.1 pg (26.0-34.0); MEAN CORPUSCULAR HGB CONC 32.8 G/dL (31.0-37.0); MEAN CORPUSCULAR VOLUME 101 fL (80-100); MONOCYTES # (AUTO) 1.1 K/uL (0.1-1.0); MONOCYTES % (AUTO) 15.3 % (2.0-9.0); NEUTROPHILS # (AUTO) 4.1 K/uL (1.8-7.7); NEUTROPHILS % (AUTO) 57.4 % (40.0-70.0); PLATELET COUNT (AUTO) 334 K/uL (150-450); RED CELL DISTRIBUTION WIDTH 18.3 % (11.5-14.5)
[2018-06-10 19:26] LABS: ALANINE AMINOTRANSFERASE 24 U/L (12-78); ALBUMIN 3.6 g/dL (3.4-5.0); ALKALINE PHOSPHATASE 58 U/L (46-116); ANION GAP 7 mmol/L (8-16); ASPARTATE AMINOTRANSFERASE 30 U/L (15-37); BILIRUBIN,TOTAL 0.1 mg/dL (0.1-1.0); CALCIUM, TOTAL 8.4 mg/dL (8.8-10.5); CARBON DIOXIDE 29 mmol/L (22-29); CHLORIDE 104 mmol/L (98-107); CREATININE 0.83 mg/dL (0.60-1.30); GLOMERULAR FILTR. RATE CALC > 60 mL/min (>60); GLUCOSE,RANDOM 115 mg/dL (70-110); POTASSIUM 4.3 mmol/L (3.5-5.1); SODIUM SERUM 140 mmol/L (136-145); TOTAL PROTEIN, SERUM 8.2 g/dL (6.4-8.2); UREA NITROGEN, BLOOD 21 mg/dL (7-18)
[2018-06-10 19:35] LABS: PHENYTOIN (DILANTIN) 20.2 mcg/mL (10.0-20.0)
== END 2018-06-10 21:00 | disposition home or self-care (01) ==
LOC: EMS 17:50
DX: F20.0 Paranoid schizophrenia (principal); F41.9 Anxiety disorder, unspecified; J45.909 Unspecified asthma, uncomplicated; E11.9 Type 2 diabetes mellitus without complications; I10 Essential (primary) hypertension; G89.29 Other chronic pain; Z88.8 Allergy status to other drugs, medicaments and biological substances; Z88.6 Allergy status to analgesic agent; Z88.5 Allergy status to narcotic agent; Z91.018 Allergy to other foods; Z79.899 Other long term (current) drug therapy; Z79.84 Long term (current) use of oral hypoglycemic drugs
CPT/HCPCS: 36415; 80053; 80185; 85025; 99284; G0480

== ENCOUNTER 2018-06-27 13:23 | Emergency (ER) | payer MEDICARE, OTHER ==
[~2018-06-27] VITALS: Ht 162.6 cm; Wt 65.8 kg
[2018-06-27 14:13] LABS: BASOPHILS % (AUTO) 0.4 % (0.0-2.0); EOSINOPHILS % (AUTO) 1.9 % (1.0-6.0); HEMATOCRIT 30.4 % (41-53); LYMPHOCYTES # (AUTO) 1.1 K/uL (1.0-4.8); LYMPHOCYTES % (AUTO) 14.2 % (22.0-44.0); MEAN CORPUSCULAR HGB CONC 32.9 G/dL (31.0-37.0); MEAN CORPUSCULAR VOLUME 101 fL (80-100); MONOCYTES # (AUTO) 1.3 K/uL (0.1-1.0); MONOCYTES % (AUTO) 17.3 % (2.0-9.0); NEUTROPHILS % (AUTO) 66.2 % (40.0-70.0); PLATELET COUNT (AUTO) 275 K/uL (150-450); RED BLOOD CELL COUNT(AUTO) 3.03 MIL/uL (4.50-5.90); RED CELL DISTRIBUTION WIDTH 17.4 % (11.5-14.5)
[2018-06-27 14:26] LABS: ANION GAP 10 mmol/L (8-16); CALCIUM, TOTAL 8.4 mg/dL (8.8-10.5); CARBON DIOXIDE 27 mmol/L (22-29); CHLORIDE 103 mmol/L (98-107); CREATININE 0.84 mg/dL (0.60-1.30); GLOMERULAR FILTR. RATE CALC > 60 mL/min (>60); GLUCOSE,RANDOM 178 mg/dL (70-110); POTASSIUM 4.1 mmol/L (3.5-5.1); SODIUM SERUM 140 mmol/L (136-145); UREA NITROGEN, BLOOD 15 mg/dL (7-18)
[2018-06-27 14:34] LABS: ALANINE AMINOTRANSFERASE 24 U/L (12-78); ALBUMIN 3.4 g/dL (3.4-5.0); ALKALINE PHOSPHATASE 62 U/L (46-116); ASPARTATE AMINOTRANSFERASE 22 U/L (15-37); BILIRUBIN,TOTAL 0.2 mg/dL (0.1-1.0); TOTAL PROTEIN, SERUM 7.7 g/dL (6.4-8.2)
[2018-06-27] MEDS ORDERED: IPRATROPIUM BROMIDE 0.5 MG/2.5 ML NEB SOLUTION NEB ONE (15:30)
[2018-06-27] MEDS ORDERED: ALBUTEROL SULFATE 2.5 MG/0.5 ML NEB SOLUTION NEB ONE (15:30)
[2018-06-27 16:31] LABS: APPEARANCE,URINE CLEAR (CLEAR); BILIRUBIN,URINE NEGATIVE (NEGATIVE); GLUCOSE, URINE (UA) NEGATIVE (NEGATIVE); KETONES,URINE NEGATIVE (NEGATIVE); LEUKOCYTE ESTERASE ,URINE NEGATIVE (NEGATIVE); NITRATE,URINE NEGATIVE (NEGATIVE); OCCULT BLOOD,URINE NEGATIVE (NEGATIVE); PH,URINE 5.5 (5.0-8.0); PROTEIN,URINE POS 1+ (NEGATIVE); UROBILINOGEN,URINE 0.2 mg/dL (<=1.0)
[2018-06-27 16:32] LABS: AMPHET/METH SCREEN,URINE NEGATIVE (NEGATIVE); BARBITURATE SCREEN, URINE NEGATIVE (NEGATIVE); BENZODIAZEPINES SCREEN,URINE NEGATIVE (NEGATIVE); CANNABINOID SCREEN,URINE NEGATIVE (NEGATIVE); COCAINE SCREEN,URINE NEGATIVE (NEGATIVE); METHADONE SCREEN, URINE NEGATIVE (NEGATIVE); OPIATE SCREEN,URINE NEGATIVE (NEGATIVE)
[2018-06-27 16:33] LABS: PHENCYCLIDINE SCREEN,URINE NEGATIVE (NEGATIVE)
[2018-06-27] MEDS ORDERED: HALOPERIDOL 5 MG TABLET PO PRN (18:15)
[2018-06-27] MEDS ORDERED: LORazepam 2 MG TABLET PO PRN (18:15)
[2018-06-27] MEDS ORDERED: ZOLPIDEM TARTRATE 10 MG TABLET PO PRN (18:15)
[2018-06-27 19:14] LABS: GLUCOSE,POINT OF CARE 87 MG/DL (70-110)
[2018-06-27 20:54] LABS: GLUCOSE,POINT OF CARE 81 MG/DL (70-110)
[2018-06-28 11:29] LABS: GLUCOSE,POINT OF CARE 105 MG/DL (70-110)
[2018-06-28 12:07] VITALS: BP 139/82
== END 2018-06-28 12:07 | disposition short-term general hospital (02) ==
LOC: EMS 13:26
DX: F20.9 Schizophrenia, unspecified (principal); F32.9 Major depressive disorder, single episode, unspecified; F41.9 Anxiety disorder, unspecified; J45.909 Unspecified asthma, uncomplicated; E11.9 Type 2 diabetes mellitus without complications; I10 Essential (primary) hypertension; G89.29 Other chronic pain; Z79.899 Other long term (current) drug therapy; Z79.84 Long term (current) use of oral hypoglycemic drugs; Z88.8 Allergy status to other drugs, medicaments and biological substances; Z88.6 Allergy status to analgesic agent; Z88.5 Allergy status to narcotic agent; Z91.018 Allergy to other foods
CPT/HCPCS: 36415; 80053; 80307; 81003; 82962; 85025; 94640; 99285; G0480

== ENCOUNTER 2018-07-25 17:22 | Emergency (ER) | payer MEDICARE, OTHER ==
[~2018-07-25] VITALS: Ht 157.5 cm; Wt 72.7 kg
[2018-07-25 17:59] LABS: GLUCOSE,POINT OF CARE 103 MG/DL (70-110)
[2018-07-25 19:32] LABS: BASOPHILS % (AUTO) 0.2 % (0.0-2.0); EOSINOPHILS % (AUTO) 3.6 % (1.0-6.0); HEMATOCRIT 29.9 % (41-53); HEMOGLOBIN 10.2 g/dL (13.5-17.5); LYMPHOCYTES # (AUTO) 1.9 K/uL (1.0-4.8); LYMPHOCYTES % (AUTO) 17.5 % (22.0-44.0); MEAN CORPUSCULAR HEMOGLOBIN 34.4 pg (26.0-34.0); MEAN CORPUSCULAR VOLUME 101 fL (80-100); MONOCYTES # (AUTO) 1.6 K/uL (0.1-1.0); MONOCYTES % (AUTO) 15.2 % (2.0-9.0); NEUTROPHILS # (AUTO) 6.9 K/uL (1.8-7.7); NEUTROPHILS % (AUTO) 63.5 % (40.0-70.0); PLATELET COUNT (AUTO) 275 K/uL (150-450); RED BLOOD CELL COUNT(AUTO) 2.96 MIL/uL (4.50-5.90)
[2018-07-25 19:44] LABS: ANION GAP 14 mmol/L (8-16); CALCIUM, TOTAL 8.3 mg/dL (8.8-10.5); CARBON DIOXIDE 25 mmol/L (22-29); CHLORIDE 103 mmol/L (98-107); CREATININE 0.99 mg/dL (0.60-1.30); GLOMERULAR FILTR. RATE CALC > 60 mL/min (>60); GLUCOSE,RANDOM 100 mg/dL (70-110); POTASSIUM 4.2 mmol/L (3.5-5.1); SODIUM SERUM 142 mmol/L (136-145); UREA NITROGEN, BLOOD 21 mg/dL (7-18)
[2018-07-25 19:51] LABS: ALANINE AMINOTRANSFERASE 22 U/L (12-78); ALBUMIN 3.1 g/dL (3.4-5.0); ALKALINE PHOSPHATASE 74 U/L (46-116); ASPARTATE AMINOTRANSFERASE 22 U/L (15-37); BILIRUBIN,TOTAL 0.2 mg/dL (0.1-1.0); PHENYTOIN (DILANTIN) 13.6 mcg/mL (10.0-20.0); TOTAL PROTEIN, SERUM 8.1 g/dL (6.4-8.2)
[2018-07-25 20:08] LABS: PLATELET MORPHOLOGY COMMENT NORMAL
[2018-07-25 20:40] VITALS: BP 145/87
== END 2018-07-25 20:44 | disposition home or self-care (01) ==
LOC: EMS 17:22
DX: F20.0 Paranoid schizophrenia (principal); F41.9 Anxiety disorder, unspecified; I10 Essential (primary) hypertension; E11.9 Type 2 diabetes mellitus without complications; J45.909 Unspecified asthma, uncomplicated; Z88.5 Allergy status to narcotic agent; Z88.6 Allergy status to analgesic agent; Z91.018 Allergy to other foods; Z79.84 Long term (current) use of oral hypoglycemic drugs; Z79.899 Other long term (current) drug therapy
CPT/HCPCS: 36415; 80053; 80185; 82962; 85025; 99284; G0480

== ENCOUNTER 2018-12-08 16:04 | Inpatient (IN) | payer MEDICARE, OTHER ==
[~2018-12-08] VITALS: Ht 162.6 cm; Wt 69.6 kg
[2018-12-08 18:23] LABS: BASOPHILS % (AUTO) 0.5 % (0.0-2.0); EOSINOPHILS % (AUTO) 2.8 % (1.0-6.0); HEMATOCRIT 27.7 % (41-53); HEMOGLOBIN 9.1 g/dL (13.5-17.5); MEAN CORPUSCULAR VOLUME 103 fL (80-100); MONOCYTES # (AUTO) 1.3 K/uL (0.1-1.0); MONOCYTES % (AUTO) 14.6 % (2.0-9.0); NEUTROPHILS # (AUTO) 5.1 K/uL (1.8-7.7); NEUTROPHILS % (AUTO) 59.1 % (40.0-70.0); PLATELET COUNT (AUTO) 320 K/uL (150-450); RED BLOOD CELL COUNT(AUTO) 2.69 MIL/uL (4.50-5.90); RED CELL DISTRIBUTION WIDTH 15.6 % (11.5-14.5)
[2018-12-08 18:37] LABS: ANION GAP 5 mmol/L (8-16); CALCIUM, TOTAL 8.2 mg/dL (8.8-10.5); CARBON DIOXIDE 31 mmol/L (22-29); CHLORIDE 106 mmol/L (98-107); CREATININE 1.07 mg/dL (0.60-1.30); GLOMERULAR FILTR. RATE CALC > 60 mL/min (>60); GLUCOSE,RANDOM 116 mg/dL (70-110); POTASSIUM 3.7 mmol/L (3.5-5.1); SODIUM SERUM 142 mmol/L (136-145); UREA NITROGEN, BLOOD 14 mg/dL (7-18)
[2018-12-08 18:40] LABS: AMMONIA 21 umol/L (11-32)
[2018-12-08 18:42] LABS: ALANINE AMINOTRANSFERASE 23 U/L (12-78); ALBUMIN 3.2 g/dL (3.4-5.0); ALKALINE PHOSPHATASE 86 U/L (46-116); ASPARTATE AMINOTRANSFERASE 24 U/L (15-37); BILIRUBIN,TOTAL 0.1 mg/dL (0.1-1.0); LIPASE 116 U/L (73-393); TOTAL PROTEIN, SERUM 7.7 g/dL (6.4-8.2)
[2018-12-08 18:44] LABS: TROPONIN I < 0.02 ng/mL (0.00-0.05)
[2018-12-08] MEDS ORDERED: LevETIRAcetam 1,000 MG in DEXTROSE 5%-WATER 100 ML IV ONE (20:00)
[2018-12-08] MEDS ORDERED: LORazepam 2 MG/ML VIAL IVP ONE (20:00)
[2018-12-08 20:38] LABS: PHENYTOIN (DILANTIN) 14.5 mcg/mL (10.0-20.0)
[2018-12-08] MEDS ORDERED: 0.9% SODIUM CHLORIDE 10 ML SYRINGE IVP PRN (20:45)
[2018-12-08] MEDS ORDERED: ONDANSETRON HCL 4 MG/2 ML VIAL IVP PRN ×2 (20:45→22:45)
[2018-12-08] MEDS ORDERED: BISACODYL 10 MG RECTAL RECTAL SUPPOSITORY PR PRN (22:45)
[2018-12-08] MEDS ORDERED: MAGNESIUM HYDROXIDE SUSPENSION 30 ML UDCUP PO PRN (22:45)
[2018-12-08] MEDS ORDERED: ZOLPIDEM TARTRATE 5 MG TABLET PO PRN (22:45)
[2018-12-08] MEDS ORDERED: ALBUTEROL SULFATE 2.5 MG/0.5 ML NEB SOLUTION NEB PRN (22:45)
[2018-12-08] MEDS ORDERED: IPRATROPIUM BROMIDE 0.5 MG/2.5 ML NEB SOLUTION NEB PRN (22:45)
[2018-12-08] MEDS ORDERED: LORazepam 2 MG/ML VIAL IVP PRN (23:00)
[2018-12-08 23:03] VITALS: BP 116/79
[2018-12-09 04:00] VITALS: BP 137/92
[2018-12-09] MEDS ORDERED: INFLUENZA VIRUS VACCINE QVS 2019-20 (3YR+)/PF 60 MCG/0.5 ML SYRINGE IM ONE (05:30)
[2018-12-09 07:23] VITALS: BP 111/60
[2018-12-09] MEDS: GABAPENTIN 300 MG CAPSULE PO SCH ×3 (07:50→20:33)
[2018-12-09] MEDS: FLUoxetine HCL 20 MG CAPSULE PO SCH (07:50)
[2018-12-09] MEDS: OMEPRAZOLE 20 MG CAPSULE PO SCH (07:51)
[2018-12-09] MEDS: MONTELUKAST SODIUM 10 MG TABLET PO SCH (07:51)
[2018-12-09] MEDS: LevETIRAcetam 500 MG TABLET PO SCH ×2 (07:51→20:33)
[2018-12-09] MEDS: LISINOPRIL 10 MG TABLET PO SCH (07:51)
[2018-12-09] MEDS: ZIPRASIDONE HCL 80 MG CAPSULE PO SCH ×2 (07:51→16:19)
[2018-12-09] MEDS: PHENYTOIN SODIUM 100 MG ER CAPSULE PO SCH ×2 (07:51→20:32)
[2018-12-09 07:52] LABS: BASOPHILS % (AUTO) 0.5 % (0.0-2.0); EOSINOPHILS % (AUTO) 3.3 % (1.0-6.0); HEMATOCRIT 30.4 % (41-53); LYMPHOCYTES # (AUTO) 1.6 K/uL (1.0-4.8); LYMPHOCYTES % (AUTO) 18.2 % (22.0-44.0); MEAN CORPUSCULAR HGB CONC 32.9 G/dL (31.0-37.0); MEAN CORPUSCULAR VOLUME 104 fL (80-100); MONOCYTES % (AUTO) 11.5 % (2.0-9.0); NEUTROPHILS # (AUTO) 5.8 K/uL (1.8-7.7); NEUTROPHILS % (AUTO) 66.5 % (40.0-70.0); PLATELET COUNT (AUTO) 293 K/uL (150-450); RED BLOOD CELL COUNT(AUTO) 2.94 MIL/uL (4.50-5.90); RED CELL DISTRIBUTION WIDTH 15.6 % (11.5-14.5)
[2018-12-09] MEDS: ENOXAPARIN SODIUM 40 MG/0.4 ML PF SYRINGE SQ SCH (07:54)
[2018-12-09] MEDS ORDERED: MetFORMIN HCL 500 MG TABLET PO SCH (08:00)
[2018-12-09 08:37] LABS: ANION GAP 5 mmol/L (8-16); CALCIUM, TOTAL 8.2 mg/dL (8.8-10.5); CARBON DIOXIDE 29 mmol/L (22-29); CHLORIDE 104 mmol/L (98-107); CHOL/HDL RATIO 2.4 (4.2-7.3); CHOLESTEROL 140 mg/dL (131-200); CREATINE KINASE, TOTAL ONLY 107 U/L (39-308); CREATININE 0.63 mg/dL (0.60-1.30); FREE T4 (FREE THYROXINE) 0.95 ng/dL (0.76-1.46); GLOMERULAR FILTR. RATE CALC > 60 mL/min (>60); GLUCOSE,RANDOM 110 mg/dL (70-110); HDL CHOLESTEROL 58 mg/dL (40-60); LDL CHOL (CALC.) 53 mg/dL (0-130); PHENYTOIN (DILANTIN) 12.7 mcg/mL (10.0-20.0); POTASSIUM 4.3 mmol/L (3.5-5.1); SODIUM SERUM 138 mmol/L (136-145); THYROID STIMULATING HORMONE 3.47 uIU/mL (0.36-3.74); TRIGLYCERIDES 146 mg/dL (15-150); UREA NITROGEN, BLOOD 11 mg/dL (7-18)
[2018-12-09 08:39] LABS: CARBAMAZEPINE (TEGRETOL) 0.1 mcg/mL (4.0-12.0); PHENOBARBITAL < 1 mcg/mL (15-40)
[2018-12-09] MEDS ORDERED: ATORVASTATIN CALCIUM 20 MG TABLET PO SCH (09:00)
[2018-12-09 10:02] LABS: APPEARANCE,URINE CLEAR (CLEAR); BILIRUBIN,URINE NEGATIVE (NEGATIVE); GLUCOSE, URINE (UA) NEGATIVE (NEGATIVE); KETONES,URINE NEGATIVE (NEGATIVE); LEUKOCYTE ESTERASE ,URINE NEGATIVE (NEGATIVE); NITRATE,URINE POSITIVE (NEGATIVE); OCCULT BLOOD,URINE NEGATIVE (NEGATIVE); PH,URINE 6.5 (5.0-8.0); PROTEIN,URINE TRACE (NEGATIVE); UROBILINOGEN,URINE 0.2 mg/dL (<=1.0)
[2018-12-09 10:09] LABS: AMPHET/METH SCREEN,URINE NEGATIVE (NEGATIVE); BARBITURATE SCREEN, URINE NEGATIVE (NEGATIVE); BENZODIAZEPINES SCREEN,URINE NEGATIVE (NEGATIVE); CANNABINOID SCREEN,URINE NEGATIVE (NEGATIVE); COCAINE SCREEN,URINE NEGATIVE (NEGATIVE); METHADONE SCREEN, URINE NEGATIVE (NEGATIVE); OPIATE SCREEN,URINE NEGATIVE (NEGATIVE); PHENCYCLIDINE SCREEN,URINE NEGATIVE (NEGATIVE)
[2018-12-09 10:22] LABS: BACTERIA,URINE Few /HPF (None Seen); RBC,URINE None Seen /HPF (0-2); SQUAMOUS EPITHELIAL CELL,UR Few /LPF (None Seen); WBC,URINE 0-2 /HPF (0-5)
[2018-12-09 10:40] LABS: BASOPHILS % (AUTO) 0.5 % (0.0-2.0); EOSINOPHILS % (AUTO) 2.4 % (1.0-6.0); HEMATOCRIT 29.2 % (41-53); HEMOGLOBIN 9.5 g/dL (13.5-17.5); LYMPHOCYTES # (AUTO) 1.7 K/uL (1.0-4.8); LYMPHOCYTES % (AUTO) 22.2 % (22.0-44.0); MEAN CORPUSCULAR HEMOGLOBIN 33.6 pg (26.0-34.0); MEAN CORPUSCULAR HGB CONC 32.7 G/dL (31.0-37.0); MEAN CORPUSCULAR VOLUME 103 fL (80-100); MONOCYTES # (AUTO) 0.9 K/uL (0.1-1.0); MONOCYTES % (AUTO) 11.4 % (2.0-9.0); NEUTROPHILS # (AUTO) 4.9 K/uL (1.8-7.7); NEUTROPHILS % (AUTO) 63.5 % (40.0-70.0); PLATELET COUNT (AUTO) 348 K/uL (150-450); RED BLOOD CELL COUNT(AUTO) 2.84 MIL/uL (4.50-5.90); RED CELL DISTRIBUTION WIDTH 15.4 % (11.5-14.5)
[2018-12-09 10:45] LABS: ANION GAP 3 mmol/L (8-16); CALCIUM, TOTAL 8.4 mg/dL (8.8-10.5); CARBON DIOXIDE 32 mmol/L (22-29); CHLORIDE 103 mmol/L (98-107); CREATININE 0.68 mg/dL (0.60-1.30); GLOMERULAR FILTR. RATE CALC > 60 mL/min (>60); GLUCOSE,RANDOM 129 mg/dL (70-110); SODIUM SERUM 138 mmol/L (136-145); UREA NITROGEN, BLOOD 10 mg/dL (7-18)
[2018-12-09 11:23] VITALS: BP 95/55
[2018-12-09] MEDS ORDERED: MAGNESIUM SULFATE 2 GM/WATER 50 ML IV PRN (13:00)
[2018-12-09] MEDS ORDERED: MAGNESIUM SULFATE 4 GM/WATER 100 ML IV PRN (13:00)
[2018-12-09 13:17] LABS: ALBUMIN 3.3 g/dL (3.4-5.0)
[2018-12-09] MEDS ORDERED: SODIUM CHLORIDE 0.9% 500 ML IV ONE (13:28)
[2018-12-09] MEDS: CefTRIAXone 1 GM/DEXTROSE 50 ML IV SCH (13:43)
[2018-12-09] MEDS: MAGNESIUM OXIDE 400 MG TABLET PO PRN ×3 (13:43→20:33)
[2018-12-09 15:37] VITALS: BP 113/69
[2018-12-09 19:57] VITALS: BP 106/64
[2018-12-09 20:00] LABS: GLUCOMETER DEV NAME(LOC) 4E.2; GLUCOSE,POINT OF CARE 118 MG/DL (70-110)
[2018-12-09] MEDS: ATORVASTATIN CALCIUM 10 MG TABLET PO SCH (20:33)
[2018-12-10] VITALS (7 sets, daily range): BP systolic 102–125; BP diastolic 51–71
[2018-12-10] MEDS: MetFORMIN HCL 500 MG TABLET PO SCH (05:00)
[2018-12-10 05:40] LABS: BASOPHILS % (AUTO) 0.6 % (0.0-2.0); EOSINOPHILS % (AUTO) 3.5 % (1.0-6.0); HEMATOCRIT 28.5 % (41-53); HEMOGLOBIN 9.5 g/dL (13.5-17.5); LYMPHOCYTES # (AUTO) 1.3 K/uL (1.0-4.8); LYMPHOCYTES % (AUTO) 23.2 % (22.0-44.0); MEAN CORPUSCULAR HEMOGLOBIN 34.1 pg (26.0-34.0); MEAN CORPUSCULAR HGB CONC 33.1 G/dL (31.0-37.0); MEAN CORPUSCULAR VOLUME 103 fL (80-100); MONOCYTES # (AUTO) 0.9 K/uL (0.1-1.0); MONOCYTES % (AUTO) 15.6 % (2.0-9.0); NEUTROPHILS # (AUTO) 3.2 K/uL (1.8-7.7); NEUTROPHILS % (AUTO) 57.1 % (40.0-70.0); PLATELET COUNT (AUTO) 317 K/uL (150-450); RED BLOOD CELL COUNT(AUTO) 2.77 MIL/uL (4.50-5.90); RED CELL DISTRIBUTION WIDTH 15.3 % (11.5-14.5)
[2018-12-10 05:54] LABS: ANION GAP 5 mmol/L (8-16); CALCIUM, TOTAL 8.2 mg/dL (8.8-10.5); CARBON DIOXIDE 32 mmol/L (22-29); CHLORIDE 103 mmol/L (98-107); CREATININE 0.72 mg/dL (0.60-1.30); GLOMERULAR FILTR. RATE CALC > 60 mL/min (>60); GLUCOSE,RANDOM 110 mg/dL (70-110); POTASSIUM 4.5 mmol/L (3.5-5.1); SODIUM SERUM 140 mmol/L (136-145); UREA NITROGEN, BLOOD 16 mg/dL (7-18)
[2018-12-10] MEDS: LevETIRAcetam 500 MG TABLET PO SCH ×2 (08:19→20:55)
[2018-12-10] MEDS: ENOXAPARIN SODIUM 40 MG/0.4 ML PF SYRINGE SQ SCH (08:19)
[2018-12-10] MEDS: PHENYTOIN SODIUM 100 MG ER CAPSULE PO SCH ×2 (08:19→20:56)
[2018-12-10] MEDS: OMEPRAZOLE 20 MG CAPSULE PO SCH (08:20)
[2018-12-10] MEDS: ZIPRASIDONE HCL 80 MG CAPSULE PO SCH ×2 (08:20→17:36)
[2018-12-10] MEDS: FLUoxetine HCL 20 MG CAPSULE PO SCH (08:20)
[2018-12-10] MEDS: GABAPENTIN 300 MG CAPSULE PO SCH ×3 (08:20→20:55)
[2018-12-10] MEDS: MONTELUKAST SODIUM 10 MG TABLET PO SCH (08:20)
[2018-12-10] MEDS: LISINOPRIL 10 MG TABLET PO SCH (08:20)
[2018-12-10] MEDS: CefTRIAXone 1 GM/DEXTROSE 50 ML IV SCH (13:00)
[2018-12-10] MEDS: MAGNESIUM OXIDE 400 MG TABLET PO PRN ×2 (18:29→22:41)
[2018-12-10] MEDS: ATORVASTATIN CALCIUM 10 MG TABLET PO SCH (20:55)
[2018-12-10 21:16] LABS: GLUCOMETER DEV NAME(LOC) 6N.2; GLUCOSE,POINT OF CARE 108 MG/DL (70-110)
[2018-12-11 04:05] VITALS: BP 112/65
[2018-12-11] MEDS: MetFORMIN HCL 500 MG TABLET PO SCH (04:31)
[2018-12-11] MEDS: MAGNESIUM OXIDE 400 MG TABLET PO PRN ×2 (04:31→08:54)
[2018-12-11 06:13] LABS: BASOPHILS % (AUTO) 0.5 % (0.0-2.0); HEMATOCRIT 28.2 % (41-53); HEMOGLOBIN 9.5 g/dL (13.5-17.5); LYMPHOCYTES # (AUTO) 1.1 K/uL (1.0-4.8); LYMPHOCYTES % (AUTO) 19.5 % (22.0-44.0); MEAN CORPUSCULAR HEMOGLOBIN 34.7 pg (26.0-34.0); MEAN CORPUSCULAR HGB CONC 33.7 G/dL (31.0-37.0); MEAN CORPUSCULAR VOLUME 103 fL (80-100); MONOCYTES # (AUTO) 0.9 K/uL (0.1-1.0); MONOCYTES % (AUTO) 15.4 % (2.0-9.0); NEUTROPHILS # (AUTO) 3.4 K/uL (1.8-7.7); NEUTROPHILS % (AUTO) 61.6 % (40.0-70.0); PLATELET COUNT (AUTO) 293 K/uL (150-450); RED BLOOD CELL COUNT(AUTO) 2.74 MIL/uL (4.50-5.90); RED CELL DISTRIBUTION WIDTH 15.1 % (11.5-14.5)
[2018-12-11 06:21] LABS: ANION GAP 6 mmol/L (8-16); CALCIUM, TOTAL 8.3 mg/dL (8.8-10.5); CARBON DIOXIDE 30 mmol/L (22-29); CHLORIDE 104 mmol/L (98-107); CREATININE 0.63 mg/dL (0.60-1.30); GLOMERULAR FILTR. RATE CALC > 60 mL/min (>60); GLUCOSE,RANDOM 120 mg/dL (70-110); POTASSIUM 4.3 mmol/L (3.5-5.1); SODIUM SERUM 140 mmol/L (136-145); UREA NITROGEN, BLOOD 14 mg/dL (7-18)
[2018-12-11 07:30] VITALS: BP 105/68
[2018-12-11] MEDS: LISINOPRIL 10 MG TABLET PO SCH (08:54)
[2018-12-11] MEDS: OMEPRAZOLE 20 MG CAPSULE PO SCH (08:55)
[2018-12-11] MEDS: ZIPRASIDONE HCL 80 MG CAPSULE PO SCH ×2 (08:55→16:19)
[2018-12-11] MEDS: GABAPENTIN 300 MG CAPSULE PO SCH (08:55)
[2018-12-11] MEDS: LevETIRAcetam 500 MG TABLET PO SCH ×2 (08:55→20:00)
[2018-12-11] MEDS: PHENYTOIN SODIUM 100 MG ER CAPSULE PO SCH ×2 (08:55→20:01)
[2018-12-11] MEDS: FLUoxetine HCL 20 MG CAPSULE PO SCH (08:55)
[2018-12-11] MEDS: MONTELUKAST SODIUM 10 MG TABLET PO SCH (08:56)
[2018-12-11] MEDS: ENOXAPARIN SODIUM 40 MG/0.4 ML PF SYRINGE SQ SCH (08:56)
[2018-12-11 11:27] VITALS: BP 100/55
[2018-12-11 12:11] LABS: GLUCOMETER DEV NAME(LOC) 6N.2; GLUCOSE,POINT OF CARE 124 MG/DL (70-110)
[2018-12-11] MEDS: CefTRIAXone 1 GM/DEXTROSE 50 ML IV SCH (13:30)
[2018-12-11 15:25] VITALS: BP 107/53
[2018-12-11] MEDS: GABAPENTIN 400 MG CAPSULE PO SCH ×2 (16:18→20:01)
[2018-12-11 19:23] VITALS: BP 111/58
[2018-12-11 19:26] LABS: GLUCOMETER DEV NAME(LOC) 4E.2; GLUCOSE,POINT OF CARE 126 MG/DL (70-110)
[2018-12-11] MEDS: ATORVASTATIN CALCIUM 10 MG TABLET PO SCH (20:01)
[2018-12-11 20:07] LABS: GLUCOMETER DEV NAME(LOC) 4E.2; GLUCOSE,POINT OF CARE 164 MG/DL (70-110)
[2018-12-11 23:30] VITALS: BP 99/44
[2018-12-12 04:15] VITALS: BP 101/64
[2018-12-12] MEDS: MetFORMIN HCL 500 MG TABLET PO SCH (06:28)
[2018-12-12 06:46] LABS: GLUCOMETER DEV NAME(LOC) 6N.2; GLUCOSE,POINT OF CARE 134 MG/DL (70-110)
[2018-12-12] MEDS: ZIPRASIDONE HCL 80 MG CAPSULE PO SCH ×2 (08:07→17:19)
[2018-12-12] MEDS: LevETIRAcetam 500 MG TABLET PO SCH ×2 (08:07→21:12)
[2018-12-12] MEDS: OMEPRAZOLE 20 MG CAPSULE PO SCH (08:07)
[2018-12-12] MEDS: PHENYTOIN SODIUM 100 MG ER CAPSULE PO SCH ×2 (08:07→20:54)
[2018-12-12] MEDS: GABAPENTIN 400 MG CAPSULE PO SCH ×4 (08:08→20:57)
[2018-12-12] MEDS: MONTELUKAST SODIUM 10 MG TABLET PO SCH (08:08)
[2018-12-12] MEDS: FLUoxetine HCL 20 MG CAPSULE PO SCH (08:08)
[2018-12-12] MEDS: ENOXAPARIN SODIUM 40 MG/0.4 ML PF SYRINGE SQ SCH (08:15)
[2018-12-12 08:22] VITALS: BP 117/57
[2018-12-12] MEDS: LISINOPRIL 10 MG TABLET PO SCH (08:50)
[2018-12-12 12:24] VITALS: BP 100/60
[2018-12-12] MEDS ORDERED: LevETIRAcetam 500 MG in DEXTROSE 5%-WATER 100 ML IV ONE (13:00)
[2018-12-12] MEDS: CefTRIAXone 1 GM/DEXTROSE 50 ML IV SCH (13:54)
[2018-12-12 14:43] VITALS: BP 108/59
[2018-12-12 15:18] VITALS: BP 104/62
[2018-12-12 19:46] LABS: GLUCOMETER DEV NAME(LOC) 6N.2; GLUCOSE,POINT OF CARE 112 MG/DL (70-110)
[2018-12-12 20:20] VITALS: BP 92/55
[2018-12-12] MEDS: ATORVASTATIN CALCIUM 10 MG TABLET PO SCH (20:56)
[2018-12-12 23:41] LABS: GLUCOMETER DEV NAME(LOC) 6N.2; GLUCOSE,POINT OF CARE 155 MG/DL (70-110)
[2018-12-13 00:10] VITALS: BP 99/55
[2018-12-13 05:40] VITALS: BP 97/56
[2018-12-13] MEDS: MetFORMIN HCL 500 MG TABLET PO SCH (06:46)
[2018-12-13 07:10] VITALS: BP 90/60
[2018-12-13 07:45] LABS: BASOPHILS % (AUTO) 0.4 % (0.0-2.0); EOSINOPHILS % (AUTO) 2.1 % (1.0-6.0); HEMATOCRIT 30.3 % (41-53); HEMOGLOBIN 10.1 g/dL (13.5-17.5); LYMPHOCYTES # (AUTO) 1.2 K/uL (1.0-4.8); MEAN CORPUSCULAR HEMOGLOBIN 34.6 pg (26.0-34.0); MEAN CORPUSCULAR HGB CONC 33.5 G/dL (31.0-37.0); MEAN CORPUSCULAR VOLUME 103 fL (80-100); MONOCYTES # (AUTO) 0.8 K/uL (0.1-1.0); MONOCYTES % (AUTO) 16.9 % (2.0-9.0); NEUTROPHILS # (AUTO) 2.8 K/uL (1.8-7.7); NEUTROPHILS % (AUTO) 56.6 % (40.0-70.0); PLATELET COUNT (AUTO) 317 K/uL (150-450); RED BLOOD CELL COUNT(AUTO) 2.93 MIL/uL (4.50-5.90); RED CELL DISTRIBUTION WIDTH 15.7 % (11.5-14.5)
[2018-12-13 08:01] LABS: ANION GAP 4 mmol/L (8-16); CALCIUM, TOTAL 8.4 mg/dL (8.8-10.5); CARBON DIOXIDE 32 mmol/L (22-29); CHLORIDE 100 mmol/L (98-107); CREATININE 0.82 mg/dL (0.60-1.30); GLOMERULAR FILTR. RATE CALC > 60 mL/min (>60); GLUCOSE,RANDOM 114 mg/dL (70-110); POTASSIUM 4.4 mmol/L (3.5-5.1); SODIUM SERUM 136 mmol/L (136-145); UREA NITROGEN, BLOOD 19 mg/dL (7-18)
[2018-12-13] MEDS: OMEPRAZOLE 20 MG CAPSULE PO SCH (08:30)
[2018-12-13] MEDS: GABAPENTIN 400 MG CAPSULE PO SCH ×4 (08:31→20:19)
[2018-12-13] MEDS: FLUoxetine HCL 20 MG CAPSULE PO SCH (08:31)
[2018-12-13] MEDS: LISINOPRIL 10 MG TABLET PO SCH ×2 (08:31→08:34)
[2018-12-13] MEDS: ENOXAPARIN SODIUM 40 MG/0.4 ML PF SYRINGE SQ SCH (08:31)
[2018-12-13] MEDS: ZIPRASIDONE HCL 80 MG CAPSULE PO SCH ×2 (08:31→17:01)
[2018-12-13] MEDS: MONTELUKAST SODIUM 10 MG TABLET PO SCH (08:32)
[2018-12-13] MEDS: LevETIRAcetam 500 MG TABLET PO SCH ×2 (08:32→20:17)
[2018-12-13] MEDS: PHENYTOIN SODIUM 100 MG ER CAPSULE PO SCH ×3 (08:32→20:17)
[2018-12-13 08:36] LABS: PHENYTOIN (DILANTIN) 32.8 mcg/mL (10.0-20.0)
[2018-12-13 11:40] VITALS: BP 107/59
[2018-12-13] MEDS: CefTRIAXone 1 GM/DEXTROSE 50 ML IV SCH (13:34)
[2018-12-13 15:10] VITALS: BP 102/60
[2018-12-13 18:01] LABS: GLUCOMETER DEV NAME(LOC) 4E.2; GLUCOSE,POINT OF CARE 128 MG/DL (70-110)
[2018-12-13 19:30] VITALS: BP 94/58
[2018-12-13] MEDS: ATORVASTATIN CALCIUM 10 MG TABLET PO SCH (20:18)
[2018-12-14 04:00] VITALS: BP 104/64
[2018-12-14 05:40] LABS: BASOPHILS % (AUTO) 0.4 % (0.0-2.0); EOSINOPHILS % (AUTO) 2.7 % (1.0-6.0); HEMATOCRIT 29.7 % (41-53); HEMOGLOBIN 9.9 g/dL (13.5-17.5); LYMPHOCYTES # (AUTO) 1.2 K/uL (1.0-4.8); MEAN CORPUSCULAR HEMOGLOBIN 34.4 pg (26.0-34.0); MEAN CORPUSCULAR HGB CONC 33.5 G/dL (31.0-37.0); MEAN CORPUSCULAR VOLUME 103 fL (80-100); MONOCYTES # (AUTO) 0.9 K/uL (0.1-1.0); MONOCYTES % (AUTO) 17.3 % (2.0-9.0); NEUTROPHILS # (AUTO) 3.1 K/uL (1.8-7.7); NEUTROPHILS % (AUTO) 57.6 % (40.0-70.0); PLATELET COUNT (AUTO) 280 K/uL (150-450); RED BLOOD CELL COUNT(AUTO) 2.89 MIL/uL (4.50-5.90); RED CELL DISTRIBUTION WIDTH 15.4 % (11.5-14.5)
[2018-12-14] MEDS: MetFORMIN HCL 500 MG TABLET PO SCH (05:52)
[2018-12-14 06:37] LABS: GLUCOMETER DEV NAME(LOC) 4E.2; GLUCOSE,POINT OF CARE 123 MG/DL (70-110)
[2018-12-14 07:56] VITALS: BP 108/67
[2018-12-14] MEDS: PHENYTOIN SODIUM 100 MG ER CAPSULE PO SCH (09:34)
[2018-12-14] MEDS: LevETIRAcetam 500 MG TABLET PO SCH (09:35)
[2018-12-14] MEDS: GABAPENTIN 400 MG CAPSULE PO SCH ×2 (09:36→13:05)
[2018-12-14] MEDS: OMEPRAZOLE 20 MG CAPSULE PO SCH (09:36)
[2018-12-14] MEDS: LISINOPRIL 10 MG TABLET PO SCH (09:37)
[2018-12-14] MEDS: ENOXAPARIN SODIUM 40 MG/0.4 ML PF SYRINGE SQ SCH (09:37)
[2018-12-14] MEDS: MONTELUKAST SODIUM 10 MG TABLET PO SCH (09:37)
[2018-12-14] MEDS: ZIPRASIDONE HCL 80 MG CAPSULE PO SCH ×2 (09:38→17:43)
[2018-12-14] MEDS: FLUoxetine HCL 20 MG CAPSULE PO SCH (09:39)
[2018-12-14 11:30] VITALS: BP 119/63
[2018-12-14 15:50] VITALS: BP 102/68
[2018-12-14] MEDS ORDERED: GABAPENTIN 300 MG CAPSULE PO SCH (21:00)
== END 2018-12-14 19:30 | disposition home or self-care (01) | DRG 101 ==
LOC: EMS 16:06 → 4E 21:08
PROVIDERS: ADMIT Internal Medicine; ATTEND Internal Medicine Geriatric Medicine
DX: G40.909 Epilepsy, unspecified, not intractable, without status epilepticus (principal); N39.0 Urinary tract infection, site not specified; F20.0 Paranoid schizophrenia; J44.9 Chronic obstructive pulmonary disease, unspecified; G47.33 Obstructive sleep apnea (adult) (pediatric); E11.9 Type 2 diabetes mellitus without complications; E78.5 Hyperlipidemia, unspecified; D50.9 Iron deficiency anemia, unspecified; I10 Essential (primary) hypertension; F17.200 Nicotine dependence, unspecified, uncomplicated; Z88.8 Allergy status to other drugs, medicaments and biological substances; Z91.011 Allergy to milk products; Z91.010 Allergy to peanuts; Z79.899 Other long term (current) drug therapy
CPT/HCPCS: 70450; 80307; 83036; 83735; 84439; 84443; 93005; 97116; 97162; 97167; 97535; G0378; G0480; G0482; J0696; J0712; J1650; J2060; J2405; J7040; J7060

== ENCOUNTER 2019-02-16 03:32 | Emergency (ER) | payer MEDICARE, OTHER ==
[~2019-02-16] VITALS: Ht 162.6 cm; Wt 60.5 kg
[2019-02-16 06:08] LABS: GLUCOSE,POINT OF CARE 116 MG/DL (70-110)
[2019-02-16] MEDS ORDERED: 0.9% SODIUM CHLORIDE 10 ML SYRINGE IVP PRN (06:15)
[2019-02-16 07:05] LABS: BASOPHILS % (AUTO) 0.7 % (0.0-2.0); EOSINOPHILS % (AUTO) 3.4 % (1.0-6.0); HEMOGLOBIN 9.4 g/dL (13.5-17.5); LYMPHOCYTES # (AUTO) 1.3 K/uL (1.0-4.8); LYMPHOCYTES % (AUTO) 15.9 % (22.0-44.0); MEAN CORPUSCULAR HEMOGLOBIN 34.5 pg (26.0-34.0); MEAN CORPUSCULAR HGB CONC 33.7 G/dL (31.0-37.0); MEAN CORPUSCULAR VOLUME 102 fL (80-100); MONOCYTES # (AUTO) 1.2 K/uL (0.1-1.0); MONOCYTES % (AUTO) 14.2 % (2.0-9.0); NEUTROPHILS # (AUTO) 5.5 K/uL (1.8-7.7); NEUTROPHILS % (AUTO) 65.8 % (40.0-70.0); PLATELET COUNT (AUTO) 337 K/uL (150-450); RED BLOOD CELL COUNT(AUTO) 2.74 MIL/uL (4.50-5.90); RED CELL DISTRIBUTION WIDTH 15.8 % (11.5-14.5)
[2019-02-16 07:09] LABS: ANION GAP 8 mmol/L (8-16); CALCIUM, TOTAL 8.4 mg/dL (8.8-10.5); CARBON DIOXIDE 27 mmol/L (22-29); CHLORIDE 99 mmol/L (98-107); CREATININE 0.53 mg/dL (0.60-1.30); GLOMERULAR FILTR. RATE CALC > 60 mL/min (>60); GLUCOSE,RANDOM 112 mg/dL (70-110); SODIUM SERUM 134 mmol/L (136-145); UREA NITROGEN, BLOOD 17 mg/dL (7-18)
[2019-02-16 07:15] LABS: ALANINE AMINOTRANSFERASE 22 U/L (12-78); ALBUMIN 3.1 g/dL (3.4-5.0); ALKALINE PHOSPHATASE 81 U/L (46-116); ASPARTATE AMINOTRANSFERASE 21 U/L (15-37); BILIRUBIN,TOTAL 0.1 mg/dL (0.1-1.0); PHENYTOIN (DILANTIN) 21.6 mcg/mL (10.0-20.0); TOTAL PROTEIN, SERUM 7.1 g/dL (6.4-8.2)
[2019-02-16] MEDS ORDERED: LevETIRAcetam 1,000 MG in DEXTROSE 5%-WATER 100 ML IV ONE (08:15)
[2019-02-16] MEDS: LevETIRAcetam 500 MG TABLET PO ONE (09:09)
[2019-02-16 09:55] VITALS: BP 140/74
== END 2019-02-16 11:09 | disposition home or self-care (01) ==
LOC: EMS 03:38
DX: G40.909 Epilepsy, unspecified, not intractable, without status epilepticus (principal); F41.9 Anxiety disorder, unspecified; J45.909 Unspecified asthma, uncomplicated; E11.9 Type 2 diabetes mellitus without complications; I10 Essential (primary) hypertension; F20.9 Schizophrenia, unspecified; G89.29 Other chronic pain; Z79.899 Other long term (current) drug therapy; Z88.8 Allergy status to other drugs, medicaments and biological substances; Z88.6 Allergy status to analgesic agent; Z91.011 Allergy to milk products; Z88.5 Allergy status to narcotic agent; Z91.018 Allergy to other foods
CPT/HCPCS: 70450; 93005; J0712; J7060

== ENCOUNTER 2019-03-22 15:23 | Inpatient (IN) | payer MEDICARE, OTHER ==
[~2019-03-22] VITALS: Ht 162.6 cm; Wt 65.6 kg
[2019-03-22] MEDS ORDERED: LORazepam 2 MG/ML VIAL ONE (16:06)
[2019-03-22] MEDS ORDERED: LORazepam 2 MG/ML VIAL IVP ONE ×2 (16:15→17:15)
[2019-03-22] MEDS ORDERED: LevETIRAcetam 1,000 MG in DEXTROSE 5%-WATER 100 ML IV ONE (16:15)
[2019-03-22 16:40] LABS: BASOPHILS % (AUTO) 0.6 % (0.0-2.0); EOSINOPHILS % (AUTO) 2.7 % (1.0-6.0); HEMATOCRIT 26.5 % (41-53); HEMOGLOBIN 8.9 g/dL (13.5-17.5); LYMPHOCYTES # (AUTO) 1.4 K/uL (1.0-4.8); MEAN CORPUSCULAR HEMOGLOBIN 34.9 pg (26.0-34.0); MEAN CORPUSCULAR HGB CONC 33.7 G/dL (31.0-37.0); MEAN CORPUSCULAR VOLUME 104 fL (80-100); MONOCYTES # (AUTO) 1.2 K/uL (0.1-1.0); MONOCYTES % (AUTO) 10.8 % (2.0-9.0); NEUTROPHILS # (AUTO) 8.6 K/uL (1.8-7.7); NEUTROPHILS % (AUTO) 73.9 % (40.0-70.0); PLATELET COUNT (AUTO) 290 K/uL (150-450); RED BLOOD CELL COUNT(AUTO) 2.55 MIL/uL (4.50-5.90); RED CELL DISTRIBUTION WIDTH 17.4 % (11.5-14.5)
[2019-03-22 17:09] LABS: ANION GAP 6 mmol/L (8-16); CALCIUM, TOTAL 8.2 mg/dL (8.8-10.5); CARBON DIOXIDE 29 mmol/L (22-29); CHLORIDE 101 mmol/L (98-107); GLOMERULAR FILTR. RATE CALC > 60 mL/min (>60); GLUCOSE,RANDOM 103 mg/dL (70-110); POTASSIUM 4.5 mmol/L (3.5-5.1); SODIUM SERUM 136 mmol/L (136-145); UREA NITROGEN, BLOOD 13 mg/dL (7-18)
[2019-03-22 17:10] LABS: PROTHROMBIN TIME 9.9 SEC (9.4-11.6)
[2019-03-22 17:16] LABS: ALANINE AMINOTRANSFERASE 22 U/L (12-78); ALBUMIN 3.4 g/dL (3.4-5.0); ALKALINE PHOSPHATASE 94 U/L (46-116); ASPARTATE AMINOTRANSFERASE 21 U/L (15-37); BILIRUBIN,TOTAL 0.1 mg/dL (0.1-1.0); LIPASE 113 U/L (73-393); TOTAL PROTEIN, SERUM 7.9 g/dL (6.4-8.2)
[2019-03-22 17:21] LABS: B-TYPE NATRIURETIC PEPTIDE 66 pg/mL (0-100)
[2019-03-22 17:37] LABS: LACTIC ACID 2.2 mmol/L (0.4-2.0)
[2019-03-22] MEDS ORDERED: 0.9% SODIUM CHLORIDE 10 ML SYRINGE IVP PRN (17:45)
[2019-03-22] MEDS ORDERED: ONDANSETRON HCL 4 MG/2 ML VIAL IVP PRN ×2 (17:45→19:00)
[2019-03-22] MEDS ORDERED: HALOPERIDOL LACTATE 5 MG/ML VIAL IVP ONE (17:45)
[2019-03-22] MEDS ORDERED: MAGNESIUM SULFATE 2 GM/WATER 50 ML IV PRN (19:00)
[2019-03-22] MEDS ORDERED: MAGNESIUM SULFATE 4 GM/WATER 100 ML IV PRN (19:00)
[2019-03-22] MEDS ORDERED: ALBUTEROL SULFATE 2.5 MG/0.5 ML NEB SOLUTION NEB PRN (19:00)
[2019-03-22] MEDS ORDERED: BISACODYL 10 MG RECTAL RECTAL SUPPOSITORY PR PRN (19:00)
[2019-03-22] MEDS ORDERED: MAGNESIUM HYDROXIDE SUSPENSION 30 ML UDCUP PO PRN (19:00)
[2019-03-22] MEDS ORDERED: IPRATROPIUM BROMIDE 0.5 MG/2.5 ML NEB SOLUTION NEB PRN (19:00)
[2019-03-22] MEDS: PHENYTOIN SODIUM 100 MG ER CAPSULE PO SCH (21:14)
[2019-03-22] MEDS: LevETIRAcetam 500 MG TABLET PO SCH (21:14)
[2019-03-22] MEDS: BENZONATATE 100 MG CAPSULE PO SCH (21:15)
[2019-03-22] MEDS: HEPARIN SODIUM,PORCINE 5,000 UNITS/ML VIAL SQ SCH (21:15)
[2019-03-22] MEDS: MAGNESIUM OXIDE 400 MG TABLET PO PRN (21:29)
[2019-03-22 21:37] VITALS: BP 128/79
[2019-03-22] MEDS: GABAPENTIN 300 MG CAPSULE PO SCH (21:50)
[2019-03-22 23:30] VITALS: BP 114/64
[2019-03-23] MEDS: MAGNESIUM OXIDE 400 MG TABLET PO PRN (01:00)
[2019-03-23 04:49] VITALS: BP 119/75
[2019-03-23 06:32] LABS: HEMOGLOBIN A1C 6.3 % (4.5-6.2)
[2019-03-23 06:37] LABS: BASOPHILS % (AUTO) 0.6 % (0.0-2.0); HEMATOCRIT 29.1 % (41-53); HEMOGLOBIN 9.9 g/dL (13.5-17.5); LYMPHOCYTES # (AUTO) 1.5 K/uL (1.0-4.8); LYMPHOCYTES % (AUTO) 18.7 % (22.0-44.0); MEAN CORPUSCULAR HEMOGLOBIN 35.2 pg (26.0-34.0); MEAN CORPUSCULAR HGB CONC 34.1 G/dL (31.0-37.0); MEAN CORPUSCULAR VOLUME 103 fL (80-100); MONOCYTES % (AUTO) 12.7 % (2.0-9.0); NEUTROPHILS # (AUTO) 5.1 K/uL (1.8-7.7); PLATELET COUNT (AUTO) 315 K/uL (150-450); RED BLOOD CELL COUNT(AUTO) 2.81 MIL/uL (4.50-5.90); RED CELL DISTRIBUTION WIDTH 17.1 % (11.5-14.5)
[2019-03-23 06:41] LABS: LACTIC ACID 2.3 mmol/L (0.4-2.0)
[2019-03-23] MEDS ORDERED: SODIUM CHLORIDE 0.9% 1,000 ML ONE (07:05)
[2019-03-23 07:12] LABS: ANION GAP 7 mmol/L (8-16); CARBON DIOXIDE 28 mmol/L (22-29); CHLORIDE 99 mmol/L (98-107); CHOL/HDL RATIO 2.4 (4.2-7.3); CHOLESTEROL 177 mg/dL (131-200); CREATINE KINASE, TOTAL ONLY 51 U/L (39-308); CREATININE 0.69 mg/dL (0.60-1.30); FREE T4 (FREE THYROXINE) 0.67 ng/dL (0.76-1.46); GLOMERULAR FILTR. RATE CALC > 60 mL/min (>60); GLUCOSE,RANDOM 103 mg/dL (70-110); HDL CHOLESTEROL 75 mg/dL (40-60); LDL CHOL (CALC.) 72 mg/dL (0-130); POTASSIUM 4.5 mmol/L (3.5-5.1); SODIUM SERUM 134 mmol/L (136-145); THYROID STIMULATING HORMONE 5.52 uIU/mL (0.36-3.74); TRIGLYCERIDES 149 mg/dL (15-150); UREA NITROGEN, BLOOD 10 mg/dL (7-18)
[2019-03-23 07:15] LABS: PHENYTOIN (DILANTIN) 29.4 mcg/mL (10.0-20.0)
[2019-03-23] MEDS ORDERED: SODIUM CHLORIDE 0.9% 1,000 ML IV ONE (07:15)
[2019-03-23] MEDS ORDERED: MetFORMIN HCL 500 MG TABLET PO SCH (08:00)
[2019-03-23 08:09] VITALS: BP 136/73
[2019-03-23] MEDS: LevETIRAcetam 500 MG TABLET PO SCH ×2 (08:35→20:04)
[2019-03-23] MEDS: HEPARIN SODIUM,PORCINE 5,000 UNITS/ML VIAL SQ SCH ×2 (08:35→20:04)
[2019-03-23] MEDS: OMEPRAZOLE 20 MG CAPSULE PO SCH (08:36)
[2019-03-23] MEDS: ATORVASTATIN CALCIUM 20 MG TABLET PO SCH (08:36)
[2019-03-23] MEDS: FLUoxetine HCL 20 MG CAPSULE PO SCH (08:36)
[2019-03-23] MEDS: GABAPENTIN 300 MG CAPSULE PO SCH ×3 (08:36→20:04)
[2019-03-23] MEDS: MONTELUKAST SODIUM 10 MG TABLET PO SCH (08:37)
[2019-03-23] MEDS: BENZONATATE 100 MG CAPSULE PO SCH ×3 (08:37→20:04)
[2019-03-23] MEDS: ZIPRASIDONE HCL 80 MG CAPSULE PO SCH ×2 (08:37→16:56)
[2019-03-23] MEDS: LISINOPRIL 10 MG TABLET PO SCH (08:37)
[2019-03-23] MEDS: PHENYTOIN SODIUM 100 MG ER CAPSULE PO SCH ×2 (09:00→21:00)
[2019-03-23 11:30] VITALS: BP 124/78
[2019-03-23] MEDS: SODIUM CHLORIDE 0.9% 1,000 ML IV SCH (12:44)
[2019-03-23] MEDS ORDERED: DEXTROSE 50%-WATER 25 GM/50 ML SYRINGE IVP PRN (12:45)
[2019-03-23] MEDS ORDERED: IBUPROFEN 600 MG TABLET PO SCH (15:00)
[2019-03-23 16:14] VITALS: BP 109/49
[2019-03-23] MEDS: INSULIN LISPRO 100 UNITS/ML SQ PRN (16:58)
[2019-03-23] MEDS: IBUPROFEN 600 MG TABLET PO PRN (18:46)
[2019-03-23 19:40] VITALS: BP 125/76
[2019-03-23] MEDS: TRIHEXYPHENIDYL HCL 2 MG TABLET PO SCH (20:05)
[2019-03-23] MEDS: BUDESONIDE 0.5 MG/2 ML NEB SOLUTION NEB SCH (23:41)
[2019-03-23 23:59] VITALS: BP 132/69
[2019-03-24] MEDS: SODIUM CHLORIDE 0.9% 1,000 ML IV SCH (02:00)
[2019-03-24 04:14] VITALS: BP 128/70
[2019-03-24 06:12] LABS: BASOPHILS % (AUTO) 0.5 % (0.0-2.0); EOSINOPHILS % (AUTO) 5.2 % (1.0-6.0); HEMATOCRIT 29.5 % (41-53); HEMOGLOBIN 9.9 g/dL (13.5-17.5); LYMPHOCYTES # (AUTO) 1.1 K/uL (1.0-4.8); LYMPHOCYTES % (AUTO) 16.6 % (22.0-44.0); MEAN CORPUSCULAR HGB CONC 33.6 G/dL (31.0-37.0); MEAN CORPUSCULAR VOLUME 104 fL (80-100); MONOCYTES # (AUTO) 0.9 K/uL (0.1-1.0); MONOCYTES % (AUTO) 13.4 % (2.0-9.0); NEUTROPHILS # (AUTO) 4.2 K/uL (1.8-7.7); NEUTROPHILS % (AUTO) 64.3 % (40.0-70.0); PLATELET COUNT (AUTO) 313 K/uL (150-450); RED BLOOD CELL COUNT(AUTO) 2.83 MIL/uL (4.50-5.90); RED CELL DISTRIBUTION WIDTH 16.9 % (11.5-14.5)
[2019-03-24 06:25] LABS: ANION GAP 5 mmol/L (8-16); CALCIUM, TOTAL 8.7 mg/dL (8.8-10.5); CARBON DIOXIDE 30 mmol/L (22-29); CHLORIDE 102 mmol/L (98-107); CREATININE 0.64 mg/dL (0.60-1.30); GLOMERULAR FILTR. RATE CALC > 60 mL/min (>60); GLUCOSE,RANDOM 98 mg/dL (70-110); PHENYTOIN (DILANTIN) 23.7 mcg/mL (10.0-20.0); POTASSIUM 4.6 mmol/L (3.5-5.1); SODIUM SERUM 137 mmol/L (136-145); UREA NITROGEN, BLOOD 12 mg/dL (7-18)
[2019-03-24 07:22] VITALS: BP 141/78
[2019-03-24] MEDS: BUDESONIDE 0.5 MG/2 ML NEB SOLUTION NEB SCH ×2 (07:49→21:00)
[2019-03-24] MEDS: HEPARIN SODIUM,PORCINE 5,000 UNITS/ML VIAL SQ SCH ×2 (08:26→20:40)
[2019-03-24] MEDS: ZIPRASIDONE HCL 80 MG CAPSULE PO SCH ×2 (08:27→17:06)
[2019-03-24] MEDS: OMEPRAZOLE 20 MG CAPSULE PO SCH (08:27)
[2019-03-24] MEDS: MONTELUKAST SODIUM 10 MG TABLET PO SCH (08:27)
[2019-03-24] MEDS: TRIHEXYPHENIDYL HCL 2 MG TABLET PO SCH ×3 (08:27→20:42)
[2019-03-24] MEDS: MULTIVITAMINS WITH MINERALS, THERAPEUTIC TABLET PO SCH (08:29)
[2019-03-24] MEDS: LevETIRAcetam 500 MG TABLET PO SCH ×2 (08:29→20:40)
[2019-03-24] MEDS: LISINOPRIL 10 MG TABLET PO SCH (08:29)
[2019-03-24] MEDS: BENZONATATE 100 MG CAPSULE PO SCH ×3 (08:29→20:40)
[2019-03-24] MEDS: GABAPENTIN 300 MG CAPSULE PO SCH ×3 (08:29→20:41)
[2019-03-24] MEDS: FLUoxetine HCL 20 MG CAPSULE PO SCH (08:29)
[2019-03-24] MEDS: PHENYTOIN SODIUM 100 MG ER CAPSULE PO SCH (08:30)
[2019-03-24] MEDS: ATORVASTATIN CALCIUM 20 MG TABLET PO SCH (08:31)
[2019-03-24 11:15] VITALS: BP 132/66
[2019-03-24 15:41] VITALS: BP 118/73
[2019-03-24] MEDS: INSULIN LISPRO 100 UNITS/ML SQ PRN (17:09)
[2019-03-24 20:24] VITALS: BP 123/62
[2019-03-24 23:26] VITALS: BP 119/74
[2019-03-25] MEDS: IBUPROFEN 600 MG TABLET PO PRN (01:01)
[2019-03-25 04:01] VITALS: BP 126/77
[2019-03-25 05:56] LABS: BASOPHILS % (AUTO) 0.6 % (0.0-2.0); EOSINOPHILS % (AUTO) 4.4 % (1.0-6.0); HEMATOCRIT 27.3 % (41-53); HEMOGLOBIN 9.3 g/dL (13.5-17.5); LYMPHOCYTES # (AUTO) 1.6 K/uL (1.0-4.8); LYMPHOCYTES % (AUTO) 17.7 % (22.0-44.0); MEAN CORPUSCULAR HEMOGLOBIN 35.1 pg (26.0-34.0); MEAN CORPUSCULAR HGB CONC 33.9 G/dL (31.0-37.0); MEAN CORPUSCULAR VOLUME 103 fL (80-100); MONOCYTES # (AUTO) 1.2 K/uL (0.1-1.0); MONOCYTES % (AUTO) 12.8 % (2.0-9.0); NEUTROPHILS # (AUTO) 5.9 K/uL (1.8-7.7); NEUTROPHILS % (AUTO) 64.5 % (40.0-70.0); PLATELET COUNT (AUTO) 290 K/uL (150-450); RED BLOOD CELL COUNT(AUTO) 2.65 MIL/uL (4.50-5.90); RED CELL DISTRIBUTION WIDTH 17.1 % (11.5-14.5)
[2019-03-25 06:08] LABS: ANION GAP 6 mmol/L (8-16); CALCIUM, TOTAL 8.3 mg/dL (8.8-10.5); CARBON DIOXIDE 30 mmol/L (22-29); CHLORIDE 101 mmol/L (98-107); CREATININE 0.62 mg/dL (0.60-1.30); GLOMERULAR FILTR. RATE CALC > 60 mL/min (>60); GLUCOSE,RANDOM 97 mg/dL (70-110); PHENYTOIN (DILANTIN) 13.8 mcg/mL (10.0-20.0); POTASSIUM 4.4 mmol/L (3.5-5.1); SODIUM SERUM 137 mmol/L (136-145); UREA NITROGEN, BLOOD 12 mg/dL (7-18)
[2019-03-25] MEDS ORDERED: LEVOTHYROXINE SODIUM 25 MCG TABLET PO SCH (06:30)
[2019-03-25 07:32] VITALS: BP 128/68
[2019-03-25] MEDS ORDERED: MetFORMIN HCL 500 MG TABLET PO SCH (08:00)
[2019-03-25] MEDS ORDERED: ATORVASTATIN CALCIUM 10 MG TABLET PO SCH (09:00)
[2019-03-25] MEDS: OMEPRAZOLE 20 MG CAPSULE PO SCH (09:02)
[2019-03-25] MEDS: LevETIRAcetam 500 MG TABLET PO SCH (09:02)
[2019-03-25] MEDS: MONTELUKAST SODIUM 10 MG TABLET PO SCH (09:02)
[2019-03-25] MEDS: ZIPRASIDONE HCL 80 MG CAPSULE PO SCH ×2 (09:02→16:59)
[2019-03-25] MEDS: TRIHEXYPHENIDYL HCL 2 MG TABLET PO SCH ×2 (09:02→15:17)
[2019-03-25] MEDS: FLUoxetine HCL 20 MG CAPSULE PO SCH (09:02)
[2019-03-25] MEDS: BENZONATATE 100 MG CAPSULE PO SCH ×2 (09:02→15:17)
[2019-03-25] MEDS: HEPARIN SODIUM,PORCINE 5,000 UNITS/ML VIAL SQ SCH (09:03)
[2019-03-25] MEDS: LISINOPRIL 10 MG TABLET PO SCH (09:03)
[2019-03-25] MEDS: MULTIVITAMINS WITH MINERALS, THERAPEUTIC TABLET PO SCH (09:03)
[2019-03-25] MEDS: GABAPENTIN 300 MG CAPSULE PO SCH ×2 (09:03→15:17)
[2019-03-25] MEDS: BUDESONIDE 0.5 MG/2 ML NEB SOLUTION NEB SCH (09:57)
[2019-03-25 11:11] VITALS: BP 124/76
[2019-03-25] MEDS: INSULIN LISPRO 100 UNITS/ML SQ PRN ×2 (12:21→17:02)
[2019-03-25 13:09] LABS: GLUCOMETER DEV NAME(LOC) 6N.1; GLUCOSE,POINT OF CARE 114 MG/DL (70-110)
[2019-03-25 13:09] LABS: GLUCOMETER DEV NAME(LOC) 6N.1; GLUCOSE,POINT OF CARE 151 MG/DL (70-110)
[2019-03-25 13:09] LABS: GLUCOMETER DEV NAME(LOC) 6N.1; GLUCOSE,POINT OF CARE 93 MG/DL (70-110)
[2019-03-25 13:09] LABS: GLUCOMETER DEV NAME(LOC) 6N.1; GLUCOSE,POINT OF CARE 152 MG/DL (70-110)
[2019-03-25 13:11] LABS: GLUCOMETER DEV NAME(LOC) 6N.1; GLUCOSE,POINT OF CARE 104 MG/DL (70-110)
[2019-03-25 13:11] LABS: GLUCOMETER DEV NAME(LOC) 6N.1; GLUCOSE,POINT OF CARE 69 MG/DL (70-110)
[2019-03-25 13:11] LABS: GLUCOMETER DEV NAME(LOC) 6N.1; GLUCOSE,POINT OF CARE 153 MG/DL (70-110)
[2019-03-25 13:12] LABS: GLUCOMETER DEV NAME(LOC) 4E.2; GLUCOSE,POINT OF CARE 98 MG/DL (70-110)
[2019-03-25 13:12] LABS: GLUCOMETER DEV NAME(LOC) 4E.2; GLUCOSE,POINT OF CARE 126 MG/DL (70-110)
[2019-03-25 13:12] LABS: GLUCOMETER DEV NAME(LOC) 4E.2; GLUCOSE,POINT OF CARE 182 MG/DL (70-110)
[2019-03-25 13:12] LABS: GLUCOMETER DEV NAME(LOC) 4E.2; GLUCOSE,POINT OF CARE 96 MG/DL (70-110)
[2019-03-25 15:27] VITALS: BP 134/62
[2019-03-25 17:30] LABS: GLUCOMETER DEV NAME(LOC) 4E.2; GLUCOSE,POINT OF CARE 129 MG/DL (70-110)
[2019-03-26] MEDS ORDERED: FLUoxetine HCL 20 MG CAPSULE PO SCH (09:00)
== END 2019-03-25 18:20 | DRG 100 ==
LOC: EMS 15:23 → 4E 19:00
PROVIDERS: ADMIT Internal Medicine Geriatric Medicine; ATTEND Internal Medicine Geriatric Medicine
PROC: 5A09357 Assistance with Respiratory Ventilation, Less than 24 Consecutive Hours, Continuous Positive Airway Pressure (ICD-10-PCS; 2019-03-23)
PROC: 5A09357 Assistance with Respiratory Ventilation, Less than 24 Consecutive Hours, Continuous Positive Airway Pressure (ICD-10-PCS; principal; 2019-03-24)
DX: G40.909 Epilepsy, unspecified, not intractable, without status epilepticus (principal); G93.41 Metabolic encephalopathy; E87.2 Acidosis; F20.0 Paranoid schizophrenia; E83.42 Hypomagnesemia; I10 Essential (primary) hypertension; G47.33 Obstructive sleep apnea (adult) (pediatric); E11.9 Type 2 diabetes mellitus without complications; E78.5 Hyperlipidemia, unspecified; D72.829 Elevated white blood cell count, unspecified; R26.9 Unspecified abnormalities of gait and mobility; D53.9 Nutritional anemia, unspecified; F32.9 Major depressive disorder, single episode, unspecified; J44.9 Chronic obstructive pulmonary disease, unspecified; F12.90 Cannabis use, unspecified, uncomplicated; F41.9 Anxiety disorder, unspecified; R62.50 Unspecified lack of expected normal physiological development in childhood; H91.90 Unspecified hearing loss, unspecified ear; T42.0X5A Adverse effect of hydantoin derivatives, initial encounter; Z91.011 Allergy to milk products; Z72.0 Tobacco use; Z83.3 Family history of diabetes mellitus; Z81.3 Family history of other psychoactive substance abuse and dependence; Z88.6 Allergy status to analgesic agent; Z88.8 Allergy status to other drugs, medicaments and biological substances; Z91.19 Patient's noncompliance with other medical treatment and regimen; Z86.73 Personal history of transient ischemic attack (TIA), and cerebral infarction without residual deficits; Q89.9 Congenital malformation, unspecified
CPT/HCPCS: 70450; 83036; 83605; 83735; 84439; 84443; 87040; 94640; 94660; 97116; 97162; 97530; 99291; G0378; G0480; G0482; J0712; J1630; J1644; J2060; J7030; J7060

== ENCOUNTER 2019-03-26 08:29 | Emergency (ER) | payer MEDICARE, OTHER ==
[~2019-03-26] VITALS: Ht 162.6 cm; Wt 63.6 kg
[2019-03-26] MEDS ORDERED: LevETIRAcetam 500 MG TABLET PO ONE ×2 (09:00)
[2019-03-26 09:56] LABS: BASOPHILS % (AUTO) 0.3 % (0.0-2.0); EOSINOPHILS % (AUTO) 0.8 % (1.0-6.0); HEMATOCRIT 27.7 % (41-53); HEMOGLOBIN 9.5 g/dL (13.5-17.5); LYMPHOCYTES # (AUTO) 1.5 K/uL (1.0-4.8); LYMPHOCYTES % (AUTO) 8.5 % (22.0-44.0); MEAN CORPUSCULAR HGB CONC 34.2 G/dL (31.0-37.0); MEAN CORPUSCULAR VOLUME 102 fL (80-100); MONOCYTES # (AUTO) 1.7 K/uL (0.1-1.0); MONOCYTES % (AUTO) 9.9 % (2.0-9.0); NEUTROPHILS # (AUTO) 14.1 K/uL (1.8-7.7); NEUTROPHILS % (AUTO) 80.5 % (40.0-70.0); PLATELET COUNT (AUTO) 306 K/uL (150-450); RED CELL DISTRIBUTION WIDTH 16.6 % (11.5-14.5)
[2019-03-26 10:08] LABS: ANION GAP 6 mmol/L (8-16); CALCIUM, TOTAL 8.3 mg/dL (8.8-10.5); CARBON DIOXIDE 29 mmol/L (22-29); CHLORIDE 98 mmol/L (98-107); CREATININE 0.69 mg/dL (0.60-1.30); GLOMERULAR FILTR. RATE CALC > 60 mL/min (>60); GLUCOSE,RANDOM 113 mg/dL (70-110); POTASSIUM 4.2 mmol/L (3.5-5.1); SODIUM SERUM 133 mmol/L (136-145); UREA NITROGEN, BLOOD 15 mg/dL (7-18)
[2019-03-26 10:14] LABS: ALANINE AMINOTRANSFERASE 30 U/L (12-78); ALBUMIN 3.4 g/dL (3.4-5.0); ALKALINE PHOSPHATASE 97 U/L (46-116); ASPARTATE AMINOTRANSFERASE 23 U/L (15-37); BILIRUBIN,TOTAL 0.3 mg/dL (0.1-1.0); PHENYTOIN (DILANTIN) 8.9 mcg/mL (10.0-20.0); TOTAL PROTEIN, SERUM 7.7 g/dL (6.4-8.2)
[2019-03-26 10:17] LABS: LACTIC ACID 1.2 mmol/L (0.4-2.0)
[2019-03-26] MEDS ORDERED: PHENYTOIN 100 MG/4 ML SUSPENSION UDCUP PO ONE (12:30)
[2019-03-26 13:13] LABS: APPEARANCE,URINE CLEAR (CLEAR); BILIRUBIN,URINE NEGATIVE (NEGATIVE); GLUCOSE, URINE (UA) NEGATIVE (NEGATIVE); KETONES,URINE NEGATIVE (NEGATIVE); LEUKOCYTE ESTERASE ,URINE NEGATIVE (NEGATIVE); NITRATE,URINE NEGATIVE (NEGATIVE); OCCULT BLOOD,URINE NEGATIVE (NEGATIVE); PROTEIN,URINE POS 1+ (NEGATIVE); UROBILINOGEN,URINE 0.2 mg/dL (<=1.0)
[2019-03-26 13:22] LABS: BACTERIA,URINE None Seen /HPF (None Seen); RBC,URINE None Seen /HPF (0-2); WBC,URINE None Seen /HPF (0-5)
[2019-03-26 14:20] VITALS: BP 132/61
== END 2019-03-26 14:50 | disposition home or self-care (01) ==
LOC: EMS 08:30
DX: D72.829 Elevated white blood cell count, unspecified (principal); G40.909 Epilepsy, unspecified, not intractable, without status epilepticus; E11.9 Type 2 diabetes mellitus without complications; G89.29 Other chronic pain; I10 Essential (primary) hypertension; J45.909 Unspecified asthma, uncomplicated; F41.9 Anxiety disorder, unspecified; F20.9 Schizophrenia, unspecified; Z79.899 Other long term (current) drug therapy; Z88.6 Allergy status to analgesic agent; Z91.011 Allergy to milk products; Z91.010 Allergy to peanuts; Z88.8 Allergy status to other drugs, medicaments and biological substances
CPT/HCPCS: 83605

== ENCOUNTER 2019-04-14 14:51 | Emergency (ER) | payer MEDICARE, OTHER ==
[~2019-04-14] VITALS: Ht 162.6 cm; Wt 63.8 kg
[~2019-04-14 14:51] MED LIST changes: -BENZ-17 PO
[2019-04-14] MEDS ORDERED: INSU100V39 SQ (15:38)
[2019-04-14] MEDS ORDERED: LEVO25TA9 PO (15:38)
[2019-04-14] MEDS ORDERED: TRIH2ELI2 PO (15:38)
[2019-04-14 16:07] LABS: GLUCOSE,POINT OF CARE 104 MG/DL (70-110)
[2019-04-14 16:52] VITALS: BP 122/73
== END 2019-04-14 17:47 | disposition home or self-care (01) ==
LOC: EMS 14:52
DX: S30.0XXA Contusion of lower back and pelvis, initial encounter (principal); F20.9 Schizophrenia, unspecified; E11.9 Type 2 diabetes mellitus without complications; G89.29 Other chronic pain; G40.909 Epilepsy, unspecified, not intractable, without status epilepticus; G47.30 Sleep apnea, unspecified; I10 Essential (primary) hypertension; J44.9 Chronic obstructive pulmonary disease, unspecified; K21.9 Gastro-esophageal reflux disease without esophagitis; F41.9 Anxiety disorder, unspecified; Z86.73 Personal history of transient ischemic attack (TIA), and cerebral infarction without residual deficits; Z98.890 Other specified postprocedural states; Z79.899 Other long term (current) drug therapy; Z91.011 Allergy to milk products; Z88.6 Allergy status to analgesic agent; Z88.8 Allergy status to other drugs, medicaments and biological substances; Z91.018 Allergy to other foods
CPT/HCPCS: 72170